=== PATIENT | male | born 1940 | race Caucasian/White ===

== ENCOUNTER → 2018-09-06 10:49 | Outpatient (CLI) | payer MEDICARE, OTHER, SELFPAY ==
--- NOTE | 2018-09-06 | DI.CT.S_ITS ---
PROCEDURE: CT HEAD/BRAIN WO/W CON INDICATIONS: Altered mental status, unspecified TECHNIQUE: 4.5 mm thick angled axial sections acquired from the foramen magnum to the vertex before and after the administration of intravenous contrast, with coronal and sagittal reformats. For radiation dose reduction, the following was used: automated exposure control, adjustment of mA and/or kV according to patient size. COMPARISON: None. FINDINGS: Image quality: Excellent. CSF Spaces: Basal cisterns are patent. No extra-axial fluid collections. Ventricles are normal in size and shape. Brain: No midline shift. No intracranial bleeds or masses. No abnormal intracranial enhancement. Woodruff-white interface appears normal. Skull and face: Calvarium and visualized facial bones appear intact, without suspicious lesions. Sinuses: Visualized sinuses and mastoids are clear. IMPRESSION: Normal examination. Source of altered mental status is not seen. Dictated by: Jeff Almonte M.D. on 09/06/2018 at 13:23 Approved by: Jeff Almonte M.D. on 09/06/2018 at 13:24
== END ==
PROVIDERS: Family Provider Family Medicine; PCP Family Medicine; Visit Provider Family Medicine
DX: R41.82 Altered mental status, unspecified (principal); R53.83 Other fatigue
CPT/HCPCS: 70470; Q9967

== ENCOUNTER 2020-12-28 11:44 | Inpatient (IN) | payer MEDICARE, OTHER, SELFPAY ==
[2020-12-28] VITALS (8 sets, daily range): BP systolic 125–166; BP diastolic 88–115; PULSE 77–112; RESP 16–20; TEMP 36.1–37.6; O2SAT 96–97; BMI 37.9
--- NOTE | 2020-12-28 12:11 | DI.RAD.S_ITS ---
PROCEDURE: XR CHEST 1V INDICATIONS: suspected sepsis TECHNIQUE: One view of the chest was acquired. COMPARISON: [facility], , CHEST 1 VIEW, 11/15/2014, 11:34. FINDINGS: Surgical changes and devices: None. Lungs and pleura: Lungs are clear. No pleural effusions or pneumothorax. Mediastinum: Mediastinal contours appear normal. Heart size is normal. Bones and chest wall: No suspicious bony lesions. Overlying soft tissues appear unremarkable. IMPRESSION: Normal for age, source of current sepsis syndrome symptoms is not seen. Dictated by: Jeff Almonte M.D. on 12/28/2020 at 14:23 Approved by: Jeff Almonte M.D. on 12/28/2020 at 14:24
[2020-12-28 12:21] LABS: Add Manual Diff / Slide Review NO; Basophils Absolute Auto 100 /uL (0-100); Basophils Percent Auto 0.7 % (0-2); Eosinophils Absolute Auto 200 /uL (0-450); Eosinophils Percent Auto 1.8 % (2-4); Hematocrit 42.8 % (41-53); Hemoglobin 14.4 g/dL (13.5-17.5); Lymphocytes Absolute Auto 1400 /uL (1100-4500); Lymphocytes Percent Auto 13.4 % (25-40); Mean Corpuscular HGB Conc 33.7 % (30-36); Mean Corpuscular Hemoglobin 30.3 PG (26-34); Mean Corpuscular Volume 89.9 fL (80-100); Monocytes Absolute Auto 800 /uL (0-900); Monocytes Percent Auto 7.5 % (3-14); Neutrophils Absolute Auto 8100 /uL (1500-7000); Neutrophils Percent Auto 76.6 % (50-75); Platelet Count 243 X10^3/uL (150-400); Red Blood Cell Count 4.76 X10^6/uL (4.5-5.9); Red Cell Distribution Width 13.5 % (11.6-14.8); White Blood Cell Count 10.5 X10^3/uL (4.5-11.0)
[2020-12-28 12:25] LABS: INR 2.2 (0.9-1.3); Prothrombin Time 25.2 SECONDS (10.1-12.7)
[2020-12-28 12:28] LABS: PTT Partial Thromboplastin Tim 46 SECONDS (26.4-36.2)
[2020-12-28 12:34] LABS: Lactate (Lactic Acid) 1.5 mmol/L (0.7-2.1)
[2020-12-28 12:35] LABS: Alanine Aminotransferase 22 IU/L (<50); Albumin 4.1 g/dL (3.5-5.0); Albumin Globulin Ratio 1.1 (1.0-2.8); Alkaline Phosphatase 150 U/L (38-126); Aspartate Aminotransferase 25 IU/L (17-59); BUN Creatinine Ratio 27.6 (6-22); Blood Urea Nitrogen 21 mg/dL (9-20); Calcium 9.3 mg/dL (8.4-10.2); Carbon Dioxide 29 mmol/L (22-32); Chloride 99 mmol/L (98-107); Estimated Glomerular Filt Rate > 60.0 mL/min (>60); Globulin 3.8 g/dL (1.7-4.1); Glucose 146 mg/dL (80-110); HEMOLYSIS < 15 (0-50); Lipase 44 U/L (23-300); Potassium 3.9 mmol/L (3.4-5.1); Sodium 138 mmol/L (137-145); Total Protein 7.9 g/dL (6.3-8.2)
[2020-12-28 12:52] LABS: Procalcitonin 0.06 ng/mL (<0.5)
--- NOTE | 2020-12-28 13:34 | ED.SKABFB ---
HPI - Skin/Abscess/Foreign Bdy General Chief complaint: Skin/Abscess/Foreign Body Stated complaint: LEFT KNEE PAIN AFTER FALL 2WKS AGO Time Seen by Provider: 12/28/20 13:02 Source: patient and family Limitations: no limitations History of Present Illness HPI narrative: 80-year-old gentleman with a history of atrial fibrillation currently on rivaroxaban, hypertension, hyperlipidemia who fell and landed on his left knee about 2 weeks ago. There is a significant abrasion and some minor swelling he was initially treated with a Z-Daniel. The knee itself has continued to be red sore and irritated and now he has cellulitis extending from the knee down the leg. He comes in for further evaluation. He denies fevers, nausea, vomiting, chest pain, palpitations, abdominal pain. He does note that it is more tender to walk and he is having difficulty with the left knee itself. He notes increasing swelling in the left lower extremity. Related Data Home Medications Medication Instructions Recorded Confirmed alpha lipoic acid 300 mg capsule 300 mg PO DAILY 03/26/19 12/28/20 atorvastatin 20 mg tablet 20 mg PO DAILY 03/26/19 12/28/20 cholecalciferol (vitamin D3) 50 2,000 unit PO DAILY 03/26/19 12/28/20 mcg (2,000 unit) capsule duloxetine 30 mg capsule,delayed 20 mg PO DAILY cap 03/26/19 12/28/20 release losartan 50 mg tablet 50 mg PO DAILY 03/26/19 12/28/20 metoprolol tartrate 50 mg tablet See Rx Instructions .ROUTE .COMPLEX 03/26/19 12/28/20 pregabalin 150 mg capsule 100 mg PO BID 03/26/19 12/28/20 rivaroxaban 20 mg tablet 20 mg PO DAILY 03/26/19 12/28/20 vitamin B complex PO 03/26/19 03/26/19 Allergies Allergy/AdvReac Type Severity Reaction Status Date / Time penicillin G [PENICILLIN G] Allergy Severe SYNCOPAL Unverified 03/26/19 13:10 EPISODE A CHILD clindamycin [CLINDAMYCIN] Allergy Intermediate RASH Unverified 03/26/19 13:10 Review of Systems Review of Systems Narrative: Remainder of complete review of systems is otherwise unremarkable except for that included in the HPI. Patient History Medical History Atrial fibrillation Hyperlipidemia Hypertension Social History household members: spouse Smoking Status: Former smoker alcohol intake: never Smoking Status: Former smoker Substance Use Type: does not use Exam Narrative Exam Narrative: General: Healthy appearing, in no acute distress. Able to give a complete and coherent history. Well-nourished well-developed HEENT: Moist mucous membranes, normal sclera with reactive pupils, Neck: No JVD, supple Respiratory: Lungs are clear to auscultation, no wheezing no rales no rhonchi. Full and symmetrical air movement Cardiac: Irregular rate and rhythm no murmurs no bruits Abdomen: Soft, nontender, good bowel tones, no flank pain Skin: Warm and dry, increasing erythema spreading from the left knee down the shearer and beginning to go up the thigh Neurologic: Grossly neurologically intact with no obvious asymmetries or abnormalities Extremities: Abrasion to the left knee with suprapatellar collection of fluid draining bloody purulence material. Full knee exam is limited due to effusion and pain. The knee can flex to 90 degree with little pain. Left calf more swollen than the right consistent with infection from the knee Psych: Cooperative, appropriate insight and affect Initial Vital Signs Initial Vital Signs: Vital Signs Temperature 99.6 F 12/28/20 11:51 Pulse Rate 77 12/28/20 11:51 Respiratory Rate 18 12/28/20 11:51 Blood Pressure 125/90 12/28/20 11:51 Pulse Oximetry 97 12/28/20 11:51 Course Orders Ordered: ED Orders 12/28/20 12:05 Complete Blood Count AUTO DIFF Stat Comprehensive Metabolic Panel Stat Lactate (Lactic Acid) Stat Lipase Stat Partial Thromboplastin Time Stat Procalcitonin Stat Prothrombin Time INR Stat 12/28/20 12:11 XR chest 1V Stat EKG-12 Lead Stat 12/28/20 13:18 Blood Culture Stat 12/28/20 13:41 XR knee LT 3V Stat 12/28/20 14:00 COVID19 - ADMIT (BUNCHER HAND swab/PCR) Stat Wound Culture and Gram Stain Stat 12/28/20 15:01 Cell Count w Diff Body Fluid Stat 12/28/20 15:08 Body Fluid Culture Stat Acetaminophen (Acetaminophen 325 Mg Tablet) 650 mg PO Q6HR PRN PRN Reason: Fever/Mild Pain (1-3) Atorvastatin Calcium (Atorvastatin 20 Mg Tablet) 20 mg PO DAILY NANCY Duloxetine HCl (Duloxetine 20 Mg Capsule) 20 mg PO DAILY NANCY Vancomycin HCl (Vancomycin) 1,250 mg in 250 mls @ 250 mls/hr IV Q12H NANCY Last Admin: 12/28/20 17:52 Dose: 250 mls/hr Documented by: [email or web address] Sodium Chloride (Normal Saline 0.9%) 250 mls @ 21 mls/hr IV Q24H PRN PRN Reason: Flush Last Admin: 12/28/20 17:52 Dose: 21 mls/hr Documented by: [email or web address] Losartan Potassium (Losartan 50 Mg Tablet) 50 mg PO DAILY NANCY Metoprolol Tartrate (Metoprolol Ir 25 Mg Tablet) 25 mg PO DAILY NANCY Metoprolol Tartrate (Metoprolol Ir 50 Mg Tablet) 50 mg PO BEDTIME NANCY Naloxone HCl (Naloxone 0.4 Mg/Ml Vial) 0.2 mg IV Q2MIN PRN PRN Reason: Opiate Reversal Pregabalin (Pregabalin 50 Mg Capsule) 100 mg PO BID NANCY Rivaroxaban (Rivaroxaban 10 Mg Tablet) 20 mg PO DAILY [facility] Vancomycin HCl (Vancomycin Trough) 1 [place] [facility] [place] Stop: 12/30/20 05:01 Discontinued Medications Sodium Chloride (Normal Saline 0.9%) 1,000 mls @ 1,000 mls/hr IV BOLUS ONE Stop: 12/28/20 13:10 Last Infusion: 12/28/20 15:22 Dose: 0 mls/hr Documented by: Admin: 12/28/20 14:09 Dose: 1,000 mls/hr Documented by: ALBERTO Ceftriaxone Sodium/Dextrose (Rocephin) 2 gm in 50 mls @ 100 mls/hr IV NOW ONE Stop: 12/28/20 15:24 Last Infusion: 12/28/20 15:55 Dose: 0 mls/hr Documented by: Admin: 12/28/20 15:27 Dose: 100 mls/hr Documented by: ALBERTO Metoprolol Tartrate (Metoprolol Ir 25 Mg Tablet) 25 mg PO BID NANCY Metoprolol Tartrate (Metoprolol Ir 25 Mg Tablet) 25 mg PO NOW ONE Stop: 12/28/20 17:16 Last Admin: 12/28/20 17:24 Dose: 25 mg Documented by: ESTELA Metoprolol Tartrate (Metoprolol Ir 25 Mg Tablet) 25 mg PO NOW ONE Stop: 12/28/20 17:30 Last Admin: 12/28/20 17:51 Dose: 25 mg Documented by: TBRAMB Vital Signs Vital signs: Vital Signs - 8 hr 12/28/20 11:51 12/28/20 15:29 Temperature 99.6 F Pulse Rate 77 109 H Respiratory Rate 18 Blood Pressure 125/90 166/115 H Pulse Oximetry 97 96 MDM - Skin/Abscess/Foreign Bdy Medical Records Attestation: I reviewed the patient's medical records. Lab Data Attestation: I reviewed the patient's lab results. Result diagrams: 12/28/20 12:05 12/28/20 12:05 Labs: Lab Results 12/28/20 12/28/20 12/28/20 Range/Units 12:05 12:05 12:05 WBC 10.5 (4.5-11.0) X10^3/uL RBC 4.76 (4.5-5.9) X10^6/uL Hgb 14.4 (13.5-17.5) g/dL Hct 42.8 (41-53) % MCV 89.9 (80-100) fL MCH 30.3 (26-34) PG MCHC 33.7 (30-36) % RDW 13.5 (11.6-14.8) % Plt Count 243 (150-400) X10^3/uL Neut % (Auto) 76.6 H (50-75) % Lymph % (Auto) 13.4 L (25-40) % [place] % (Auto) 7.5 (3-14) % Eos % (Auto) 1.8 L (2-4) % Baso % (Auto) 0.7 (0-2) % Neut # (Auto) 8100 H (5888-1834) /uL Lymph # (Auto) 1400 (5448-2804) /uL [place] # (Auto) 800 (0-900) /uL Eos # (Auto) 200 (0-450) /uL Baso # (Auto) 100 (0-100) /uL PT 25.2 H (10.1-12.7) SECONDS INR 2.2 H (0.9-1.3) APTT 46 H (26.4-36.2) SECONDS Sodium 138 (137-145) mmol/L Potassium 3.9 (3.4-5.1) mmol/L Chloride 99 (98-107) mmol/L Carbon Dioxide 29 (22-32) mmol/L BUN 21 H (9-20) mg/dL Creatinine 0.76 (0.66-1.25) mg/dL Estimated GFR > 60.0 (>60) mL/min BUN/Creatinine Ratio 27.6 H (6-22) Glucose 146 H (80-110) mg/dL Lactate (0.7-2.1) mmol/L Calcium 9.3 (8.4-10.2) mg/dL Total Bilirubin 1.0 (0.2-1.3) mg/dL AST 25 (17-59) IU/L ALT 22 (<50) IU/L Alkaline Phosphatase 150 H (38-126) U/L Total Protein 7.9 (6.3-8.2) g/dL Albumin 4.1 (3.5-5.0) g/dL Globulin 3.8 (1.7-4.1) g/dL Albumin/Globulin Ratio 1.1 (1.0-2.8) Lipase 44 (23-300) U/L Procalcitonin 0.06 (<0.5) ng/mL Fluid Color Fluid Appearance Fluid RBC Fld Tot Nucleated Cell Fluid Polynuclear WBCs Fluid Mononuclear WBCs Fluid Eosinophils Fluid Other Cells Body Fluid Clot SARS-CoV-2 (PCR) (Negative) 12/28/20 12/28/20 12/28/20 Range/Units 12:05 14:00 15:01 WBC (4.5-11.0) X10^3/uL RBC (4.5-5.9) X10^6/uL Hgb (13.5-17.5) g/dL Hct (41-53) % MCV (80-100) fL MCH (26-34) PG MCHC (30-36) % RDW (11.6-14.8) % Plt Count (150-400) X10^3/uL Neut % (Auto) (50-75) % Lymph % (Auto) (25-40) % [place] % (Auto) (3-14) % Eos % (Auto) (2-4) % Baso % (Auto) (0-2) % Neut # (Auto) (0284-4915) /uL Lymph # (Auto) (7827-0271) /uL [place] # (Auto) (0-900) /uL Eos # (Auto) (0-450) /uL Baso # (Auto) (0-100) /uL PT (10.1-12.7) SECONDS INR (0.9-1.3) APTT (26.4-36.2) SECONDS Sodium (137-145) mmol/L Potassium (3.4-5.1) mmol/L Chloride (98-107) mmol/L Carbon Dioxide (22-32) mmol/L BUN (9-20) mg/dL Creatinine (0.66-1.25) mg/dL Estimated GFR (>60) mL/min BUN/Creatinine Ratio (6-22) Glucose (80-110) mg/dL Lactate 1.5 (0.7-2.1) mmol/L Calcium (8.4-10.2) mg/dL Total Bilirubin (0.2-1.3) mg/dL AST (17-59) IU/L ALT (<50) IU/L Alkaline Phosphatase (38-126) U/L Total Protein (6.3-8.2) g/dL Albumin (3.5-5.0) g/dL Globulin (1.7-4.1) g/dL Albumin/Globulin Ratio (1.0-2.8) Lipase (23-300) U/L Procalcitonin (<0.5) ng/mL Fluid Color Red Fluid Appearance Cloudy Fluid RBC TNP Fld Tot Nucleated Cell TNP Fluid Polynuclear WBCs TNP Fluid Mononuclear WBCs TNP Fluid Eosinophils TNP Fluid Other Cells TNP Body Fluid Clot Specimen clotted SARS-CoV-2 (PCR) Negative (Negative) MDM Narrative Medical decision making narrative: 80-year-old gentleman with recent fall to the left knee with irritation to the left patella with superficial infection then developing into prepatellar infection. He has fairly free movement of the knee and lab work is relatively unremarkable suggesting no evidence of a septic joint. He is beginning to have increasing pain and expanding cellulitis from the area of concern at the patella distal. The patellar bursa bursa is draining slightly and using sterile touch technique and an 18 gauge needle 2 cc of bloody purulence fluid is withdrawn from the patella bursa and sent to the lab for culture. Because he has already finished a course of antibiotics and is having increasing pain and redness recommendation at this time is for hospital admission. Have contacted the hospitalist service who will be the admitting service and Orthopedics, Dr. Rice will consult to see if additional I and D of the bursa or knee joint itself needs to be more further evaluated. Patient is safe for transfer to floor Discharge Plan Departure Patient Disposition: Admitted as Observation Admit Date/Time: 12/28/20 15:58 Admit Provider: Jorje Art
--- NOTE | 2020-12-28 13:41 | DI.RAD.S_ITS ---
PROCEDURE: XR KNEE LT 3V INDICATIONS: ? septic joint, trauma, hemarthrosis TECHNIQUE: 3 views of the knee were acquired. COMPARISON: None. FINDINGS: Bones: No fractures or dislocations. No suspicious bony lesions. There is severe knee joint osteoarthritis at the medial compartment where [id number] articulation is present. Moderately severe such degeneration is seen at the lateral compartment and the lateral facet of the patellofemoral joint. Soft tissues: No joint effusion. No suspicious soft tissue calcifications. IMPRESSION: Overall the knee joint osteoarthritis is moderately severe to severe on the left, with most pronounced involvement at the medial compartment where [id number] articulation is present. Dictated by: Jeff Almonte M.D. on 12/28/2020 at 14:25 Approved by: Jeff Almonte M.D. on 12/28/2020 at 14:26
[2020-12-28] MEDS: SODIUM CHLORIDE 0.9% 1,000 ML 1000 ML IV (14:09)
[2020-12-28 15:04] LABS: Body Fluid Appearance CLOUDY; Body Fluid Clotted? SPECIMEN CLOTTED; Body Fluid Color RED
[2020-12-28 15:12] LABS: COVID19 - ADMIT (NP swab/PCR) Negative (Negative)
[2020-12-28] MEDS: CEFTRIAXONE 2 GM/50 ML FROZ.PIGGY IV (15:27)
[2020-12-28] MEDS: METOPROLOL IR 25 MG TABLET PO ×4 (17:24→23:19)
--- NOTE | 2020-12-28 17:29 | PC.ADMIT ---
[id number] [facility] Admission Note: The patient,Bennett Covington,80 y/o, was given written information regarding hospital policies, unit procedures and contact persons. Patient's smoking status: Former smoker. Vital Signs - 8 hr 12/28/20 11:51 12/28/20 15:29 12/28/20 16:40 Temperature 99.6 F 97.5 F L Pulse Rate 77 109 H 112 H Respiratory Rate 18 20 Blood Pressure 125/90 166/115 H 161/114 H Pulse Oximetry 97 96 96 12/28/20 17:05 Temperature Pulse Rate 110 H Respiratory Rate Blood Pressure 156/92 H Pulse Oximetry Patient up from ED via wheelchair. Patient was able to get out of the wheelchair with own cane and ambulate to bed. Patient denied pain. Patient is A&O, calm and cooperative.
[2020-12-28] MEDS: SODIUM CHLORIDE 0.9% 250 ML 21 ML IV (17:52)
[2020-12-28] MEDS: VANCOMYCIN 1,250 MG/250 ML PIGGYBACK 250 MG IV (17:52)
--- NOTE | 2020-12-28 17:56 | P.HP_ITS ---
History of Present Illness History of Present Illness Date Patient Seen: 12/28/20 Time Patient Seen: 15:57 Chief complaint: LEFT KNEE PAIN AFTER FALL 2WKS AGO Narrative: Mr. Covington is a 80M afib, htn, hl, peripheral neuropathy who is coming in with worsening swelling and pain in his left leg. He noted he had a 2 weeks ago and hit his knee. He had some swelling and an abrasion. He saw a physician and was given a z-pack for this which he finished about a week ago. He has noticed worsening swelling, erythema over his knee and worsening to extending down his leg. He did not have fevers, joint immobility, nausea, vomiting, shortness of breath. In the Er, workup was done. His vitals were unremarkable. Labs notable for a WBC of 10.5 with 76.6 PMNs, INR 2.2, creatinine 0.76. Procalcitonin of 0.06. He was given IV vancomycin and admitted for further treatment. Patient History Medical History Atrial fibrillation Hyperlipidemia Hypertension Family & Social History Social History: household members spouse Prior Living Arrangements House Safety & Behavioral: Feels Safe in Current Yes Environment Been Physically Hurt or No Threatened By a Person Suicidal Ideation Description None Suicide Plan Description No Plan Tobacco & Substance use: Smoking Status Former smoker alcohol intake never Substance Use Type does not use Meds Home Medications and Allergies Home Medications Medication Instructions Recorded Confirmed Type alpha lipoic acid 300 mg capsule 300 mg PO DAILY 03/26/19 12/28/20 History atorvastatin 20 mg tablet 20 mg PO DAILY 03/26/19 12/28/20 History cholecalciferol (vitamin D3) 50 2,000 unit PO DAILY 03/26/19 12/28/20 History mcg (2,000 unit) capsule duloxetine 30 mg capsule,delayed 20 mg PO DAILY cap 03/26/19 12/28/20 History release losartan 50 mg tablet 50 mg PO DAILY 03/26/19 12/28/20 History metoprolol tartrate 50 mg tablet See Rx Instructions .ROUTE .COMPLEX 03/26/19 12/28/20 History pregabalin 150 mg capsule 100 mg PO BID 03/26/19 12/28/20 History rivaroxaban 20 mg tablet 20 mg PO DAILY 03/26/19 12/28/20 History vitamin B complex PO 03/26/19 03/26/19 History Allergies Allergy/AdvReac Type Severity Reaction Status Date / Time penicillin G [PENICILLIN G] Allergy Severe SYNCOPAL Unverified 03/26/19 13:10 EPISODE A CHILD clindamycin [CLINDAMYCIN] Allergy Intermediate RASH Unverified 03/26/19 13:10 Review of Systems Review of Systems Narrative: 14 systems reviewed and negative aside from what is noted in HPI. Exam Vital Signs (past 8 hours): - 12/28/20 11:51 12/28/20 15:29 12/28/20 16:40 Temperature 99.6 F 97.5 F L Pulse Rate 77 109 H 112 H Respiratory Rate 18 20 Blood Pressure 125/90 166/115 H 161/114 H Pulse Oximetry 97 96 96 12/28/20 17:05 Temperature Pulse Rate 110 H Respiratory Rate Blood Pressure 156/92 H Pulse Oximetry Oxygen Delivery Method Room Air Oxygen Flow Rate 0 Narrative Exam Narrative: GEN: No acute distress HEENT: PERRL, moist mucous membranes NECK: trachea midline, no JVD CV: irregularly irregular, with no murmurs PULM: clear bilaterally ABD: soft, nontender, nondistended, no organomegaly, normal bowel sounds EXT: has abrasion to left knee, has mild fluid draining from suprapatellar region, has normal knee extension and flexion, has left sided erythema from knee to just above foot with significant edema NEURO: AAOx3, moving all extremities PSYCH: pleasant mood Objective Labs Result Diagrams: 12/28/20 12:05 12/28/20 12:05 Labs: Laboratory Results - last 24 hr 12/28/20 12/28/20 12/28/20 12:05 12:05 12:05 WBC 10.5 RBC 4.76 Hgb 14.4 Hct 42.8 MCV 89.9 MCH 30.3 MCHC 33.7 RDW 13.5 Plt Count 243 Neut % (Auto) 76.6 H Lymph % (Auto) 13.4 L [place] % (Auto) 7.5 Eos % (Auto) 1.8 L Baso % (Auto) 0.7 Neut # (Auto) 8100 H Lymph # (Auto) 1400 [place] # (Auto) 800 Eos # (Auto) 200 Baso # (Auto) 100 PT 25.2 H INR 2.2 H APTT 46 H Sodium 138 Potassium 3.9 Chloride 99 Carbon Dioxide 29 BUN 21 H Creatinine 0.76 Estimated GFR > 60.0 BUN/Creatinine Ratio 27.6 H Glucose 146 H Lactate Calcium 9.3 Total Bilirubin 1.0 AST 25 ALT 22 Alkaline Phosphatase 150 H Total Protein 7.9 Albumin 4.1 Globulin 3.8 Albumin/Globulin Ratio 1.1 Lipase 44 Procalcitonin 0.06 Fluid Color Fluid Appearance Fluid RBC Fld Tot Nucleated Cell Fluid Polynuclear WBCs Fluid Mononuclear WBCs Fluid Eosinophils Fluid Other Cells Body Fluid Clot SARS-CoV-2 (PCR) 12/28/20 12/28/20 12/28/20 12:05 14:00 15:01 WBC RBC Hgb Hct MCV MCH MCHC RDW Plt Count Neut % (Auto) Lymph % (Auto) [place] % (Auto) Eos % (Auto) Baso % (Auto) Neut # (Auto) Lymph # (Auto) [place] # (Auto) Eos # (Auto) Baso # (Auto) PT INR APTT Sodium Potassium Chloride Carbon Dioxide BUN Creatinine Estimated GFR BUN/Creatinine Ratio Glucose Lactate 1.5 Calcium Total Bilirubin AST ALT Alkaline Phosphatase Total Protein Albumin Globulin Albumin/Globulin Ratio Lipase Procalcitonin Fluid Color Red Fluid Appearance Cloudy Fluid RBC TNP Fld Tot Nucleated Cell TNP Fluid Polynuclear WBCs TNP Fluid Mononuclear WBCs TNP Fluid Eosinophils TNP Fluid Other Cells TNP Body Fluid Clot Specimen clotted SARS-CoV-2 (PCR) Negative Assessment & Plan Assessment & Plan narrative: 1. Acute left leg cellulitis -has worsening left leg erythema, swelling, and pain -ER drained suprapatellar collection -cultures from collection pending -no evidence of joint involvement with no joint pain, and good range of motion -continue IV vancomycin -keep leg elevated -ultrasound to rule out DVT 2. Atrial fibrillation -rate controlled currently -continue home dose of metoprolol 25mg am, 50mg pm -continue rivaroxaban 3. Peripheral neuropathy -chronic -continue duloxetine, pregabalin 4. HTN -continue losartan, metoprolol -blood pressure well controlled here 5. Hyperlipidema, chronic -continue atorvastatin IVF: None DVT ppx: full ac with rivaroxaban Diet: heart healthy Code status: Full, proxy is Esme Covington COVID-19 COVID-19 status: Negative Time Spent With Patient Time with patient: 15-24 minutes Quality VTE Deep Vein Thrombosis/Pulmonary Embolism Present on Admission: No MIPS - Admit I confirm the patient?s Advance Care Plan is present, Code status is documented, Surrogate decision maker is in patient?s record [If Yes, STOP here]: Yes
--- NOTE | 2020-12-28 18:10 | DI.US.S_ITS ---
PROCEDURE: US PERIPH VENOUS LOW EXTREM LT INDICATIONS: ?DVT TECHNIQUE: Real-time imaging, as well as color and pulse Doppler interrogation, were performed of the lower extremity deep veins from the inguinal ligament to the popliteal fossa. COMPARISON: None. FINDINGS: The common femoral, femoral and popliteal veins are normally compressible, and free of intraluminal thrombus. Color and pulse Doppler demonstrate normal phasic intraluminal flow. There is normal augmentation response to distal compression maneuver. Mild subcutaneous edema. IMPRESSION: No deep venous thrombosis. Mild subcutaneous edema is present. Recommend correlation cellulitis. Dictated by: Jo Lizama M.D. on 12/28/2020 at 19:06 Approved by: Jo Lizama M.D. on 12/28/2020 at 19:06
--- NOTE | 2020-12-28 18:18 | PM.CN ---
History of Present Illness Consult details Date Patient Seen: 12/28/20 Time Patient Seen: 18:04 Chief complaint: LEFT KNEE PAIN AFTER FALL 2WKS AGO Reason for consult: Left knee swelling Requesting provider: Jorje Art Narrative: 80-year-old gentleman admitted due to swelling to the left knee. Patient states he had a fall about a week ago and started to develop swelling in the prepatellar bursa. Over time this then started to develop into redness and some drainage as well as pain. Due to these symptoms, patient came into the emergency room today where he was admitted because possible infected prepatellar bursa. Patient states that they aspirated the bursa in the emergency room. Patient is complaining of pain to the knee but states that he has been able to ambulate despite the redness and drainage. Meds Home Medications and Allergies Home Medications Medication Instructions Recorded Confirmed Type alpha lipoic acid 300 mg capsule 300 mg PO DAILY 03/26/19 12/28/20 History atorvastatin 20 mg tablet 20 mg PO DAILY 03/26/19 12/28/20 History cholecalciferol (vitamin D3) 50 2,000 unit PO DAILY 03/26/19 12/28/20 History mcg (2,000 unit) capsule duloxetine 30 mg capsule,delayed 20 mg PO DAILY cap 03/26/19 12/28/20 History release losartan 50 mg tablet 50 mg PO DAILY 03/26/19 12/28/20 History metoprolol tartrate 50 mg tablet See Rx Instructions .ROUTE .COMPLEX 03/26/19 12/28/20 History pregabalin 150 mg capsule 100 mg PO BID 03/26/19 12/28/20 History rivaroxaban 20 mg tablet 20 mg PO DAILY 03/26/19 12/28/20 History vitamin B complex PO 03/26/19 03/26/19 History Allergies Allergy/AdvReac Type Severity Reaction Status Date / Time penicillin G [PENICILLIN G] Allergy Severe SYNCOPAL Unverified 03/26/19 13:10 EPISODE A CHILD clindamycin [CLINDAMYCIN] Allergy Intermediate RASH Unverified 03/26/19 13:10 Review of Systems Review of Systems ROS: Yes All systems reviewed with the patient and are negative except as otherwise documented Exam Vital Signs (past 8 hours): - 12/28/20 11:51 12/28/20 15:29 12/28/20 16:40 Temperature 99.6 F 97.5 F L Pulse Rate 77 109 H 112 H Respiratory Rate 18 20 Blood Pressure 125/90 166/115 H 161/114 H Pulse Oximetry 97 96 96 12/28/20 17:05 Temperature Pulse Rate 110 H Respiratory Rate Blood Pressure 156/92 H Pulse Oximetry Oxygen Delivery Method Room Air Oxygen Flow Rate 0 Narrative Exam Narrative: Patient with redness swelling into the anterior portion of the knee. No sign of any swelling in the knee joint itself. Patient is able to flex and extend the knee with little to no pain. No pain with axial loading of the knee joint. No sign of any obvious infection in the knee joint itself. Does have fullness and tenderness to palpation over the prepatellar bursa. Sensation of fluid. Signs of previous drainage in the dressing but no sign of any active drainage during exam. Objective Labs Result Diagrams: 12/28/20 12:05 12/28/20 12:05 Labs: Laboratory Results - last 24 hr 12/28/20 12/28/20 12/28/20 12:05 12:05 12:05 WBC 10.5 RBC 4.76 Hgb 14.4 Hct 42.8 MCV 89.9 MCH 30.3 MCHC 33.7 RDW 13.5 Plt Count 243 Neut % (Auto) 76.6 H Lymph % (Auto) 13.4 L [place] % (Auto) 7.5 Eos % (Auto) 1.8 L Baso % (Auto) 0.7 Neut # (Auto) 8100 H Lymph # (Auto) 1400 [place] # (Auto) 800 Eos # (Auto) 200 Baso # (Auto) 100 PT 25.2 H INR 2.2 H APTT 46 H Sodium 138 Potassium 3.9 Chloride 99 Carbon Dioxide 29 BUN 21 H Creatinine 0.76 Estimated GFR > 60.0 BUN/Creatinine Ratio 27.6 H Glucose 146 H Lactate Calcium 9.3 Total Bilirubin 1.0 AST 25 ALT 22 Alkaline Phosphatase 150 H Total Protein 7.9 Albumin 4.1 Globulin 3.8 Albumin/Globulin Ratio 1.1 Lipase 44 Procalcitonin 0.06 Fluid Color Fluid Appearance Fluid RBC Fld Tot Nucleated Cell Fluid Polynuclear WBCs Fluid Mononuclear WBCs Fluid Eosinophils Fluid Other Cells Body Fluid Clot SARS-CoV-2 (PCR) 12/28/20 12/28/20 12/28/20 12:05 14:00 15:01 WBC RBC Hgb Hct MCV MCH MCHC RDW Plt Count Neut % (Auto) Lymph % (Auto) [place] % (Auto) Eos % (Auto) Baso % (Auto) Neut # (Auto) Lymph # (Auto) [place] # (Auto) Eos # (Auto) Baso # (Auto) PT INR APTT Sodium Potassium Chloride Carbon Dioxide BUN Creatinine Estimated GFR BUN/Creatinine Ratio Glucose Lactate 1.5 Calcium Total Bilirubin AST ALT Alkaline Phosphatase Total Protein Albumin Globulin Albumin/Globulin Ratio Lipase Procalcitonin Fluid Color Red Fluid Appearance Cloudy Fluid RBC TNP Fld Tot Nucleated Cell TNP Fluid Polynuclear WBCs TNP Fluid Mononuclear WBCs TNP Fluid Eosinophils TNP Fluid Other Cells TNP Body Fluid Clot Specimen clotted SARS-CoV-2 (PCR) Negative Assessment & Plan Assessment & Plan narrative: Patient with signs of an infected left prepatellar bursa. Discussed with the patient that this will most likely require irrigation and debridement in the operating room. I would have planned on doing that today but patient has been already served dinner and he has just recently eaten. We will make him NPO after midnight. Reassess his knee in the morning and patient will most likely require an irrigation and debridement of that left knee sometime tomorrow if there has not been significant improvement from his IV antibiotics. Time Spent With Patient Time with patient: less than 15 minutes
[2020-12-28] MEDS: PREGABALIN 50 MG CAPSULE 100 MG PO (20:45)
[2020-12-28] MEDS: LOSARTAN 50 MG TABLET PO (21:54)
--- NOTE | 2020-12-28 22:02 | PC.NURSE ---
BP was still elevated tonight despite getting 50mg of Lopressor around 1730. will give lopressor 25mg and losartan 50mg. will reassess vitals after 30 min. pt did not take his morning meds
--- NOTE | 2020-12-28 23:31 | PC.NURSE ---
Addendum entered by Brenda Lockwood R.N. 12/29/20 05:37: Up to bathroom and noted to have some blood coming from penis. Denies dysuria. UA sent earlier positive for blood but no culture indicated. Original Note: patient is alert and oriented. Breath sounds diminished with short inspiratory phase and expiratory squeaks in bilateral lower lobes with exhalation. Reports chronic SOB just during ambulation but disappears once sitting/back in bed. HR irregular w/rate of 115-124 on cardiac monitor; COUNTER ROLLER informed and order received for additional Metoprolol which was given. Last telemetry reading was afib CVR. Denies nausea. BT present and abdomen is soft. Reports chronic urinary frequency but denies dysuria or urgency. Is able to move self in bed. Up to bathroom with walker and 1 assist. Erythema to left LE noted. Leg is also swollen and warm to touch. Small open area on patella draining serosanguinous fluid; 2 bandaids over patella are CDI. Pedal pulses present bilaterallly. Also has edema bilaterally chronically with current left > right. Neuropathy present in bilateral feet with some numbness extending up right leg. Denies pain. Fall risk score is high and bed alarm is activated. Plan is to be NPO after 0000 for possible I&D in the morning; patient verbalizes understanding.
[2020-12-29] VITALS (19 sets, daily range): BP systolic 118–189; BP diastolic 70–128; PULSE 78–140; RESP 12–20; TEMP 35.9–37.7; O2SAT 90–99; BMI 37.3
[2020-12-29 01:30] LABS: Bacteria Urine None Seen; WBC Urine None Seen (0-5/HPF)
[2020-12-29 01:32] LABS: Appearance Urine UA SL CLOUDY; Bilirubin Urine UA NEGATIVE (NEGATIVE); Color Urine UA YELLOW; Glucose Urine UA NEGATIVE (Negative); Ketones Urine UA NEGATIVE (NEGATIVE); Leukocyte Esterase Urine UA NEGATIVE (NEGATIVE); Nitrite Urine UA NEGATIVE (Negative); Occult Blood Urine UA 3+ (Negative); Protein Urine UA TRACE (Negative)
[2020-12-29 01:37] LABS: Culture Indicated Urine Cult Not Indicated; RBC Urine >100/HPF (0-5/HPF)
[2020-12-29] MEDS: SODIUM CHLORIDE 0.9% FLUSH 10 ML IV ×2 (05:28→09:08)
[2020-12-29] MEDS: VANCOMYCIN 1,250 MG/250 ML PIGGYBACK 250 MG IV ×2 (05:28→19:25)
[2020-12-29 06:56] LABS: Add Manual Diff / Slide Review NO; Basophils Absolute Auto 100 /uL (0-100); Basophils Percent Auto 0.8 % (0-2); Eosinophils Absolute Auto 200 /uL (0-450); Eosinophils Percent Auto 2.2 % (2-4); Hematocrit 37.7 % (41-53); Hemoglobin 12.9 g/dL (13.5-17.5); Lymphocytes Absolute Auto 1600 /uL (1100-4500); Lymphocytes Percent Auto 17.4 % (25-40); Mean Corpuscular HGB Conc 34.2 % (30-36); Mean Corpuscular Hemoglobin 30.7 PG (26-34); Mean Corpuscular Volume 89.7 fL (80-100); Monocytes Absolute Auto 1000 /uL (0-900); Monocytes Percent Auto 11.2 % (3-14); Neutrophils Absolute Auto 6400 /uL (1500-7000); Neutrophils Percent Auto 68.4 % (50-75); Platelet Count 224 X10^3/uL (150-400); Red Cell Distribution Width 13.1 % (11.6-14.8); White Blood Cell Count 9.3 X10^3/uL (4.5-11.0)
[2020-12-29 07:01] LABS: INR 1.5 (0.9-1.3); Prothrombin Time 16.9 SECONDS (10.1-12.7)
[2020-12-29 07:06] LABS: BUN Creatinine Ratio 21.3 (6-22); Blood Urea Nitrogen 16 mg/dL (9-20); Calcium 8.6 mg/dL (8.4-10.2); Carbon Dioxide 28 mmol/L (22-32); Chloride 101 mmol/L (98-107); Estimated Glomerular Filt Rate > 60.0 mL/min (>60); Glucose 131 mg/dL (80-110); HEMOLYSIS < 15 (0-50); Sodium 136 mmol/L (137-145)
--- NOTE | 2020-12-29 08:20 | PM.PN.1 ---
Subjective Subjective Date Patient Seen: 12/29/20 Time Patient Seen: 08:20 Interval history: Pain is mild. Denies fever or chills. No nausea or vomiting. Patient states he is hungry and frustrated would like to get this taken care of. Exam Vital Signs (past 8 hours): - 12/29/20 03:19 12/29/20 07:32 Temperature 99.8 F H 96.6 F L Pulse Rate 95 H 113 H Respiratory Rate 16 16 Blood Pressure 134/70 144/102 H Pulse Oximetry 96 96 Oxygen Delivery Method Room Air Oxygen Flow Rate 0 Narrative Exam Narrative: Erythematous and edematous anterior knee down to the foot. Small dime-size wound just inferior to the patella with a serous drainage. Does not appear to have an effusion. Motor functions intact distal left lower extremity. Sensation grossly intact to light touch distal left lower extremity. Objective Labs Result Diagrams: 12/29/20 06:47 12/29/20 06:47 Labs: Laboratory Results - last 24 hr 12/28/20 12/28/20 12/28/20 12:05 12:05 12:05 WBC 10.5 RBC 4.76 Hgb 14.4 Hct 42.8 MCV 89.9 MCH 30.3 MCHC 33.7 RDW 13.5 Plt Count 243 Neut % (Auto) 76.6 H Lymph % (Auto) 13.4 L [place] % (Auto) 7.5 Eos % (Auto) 1.8 L Baso % (Auto) 0.7 Neut # (Auto) 8100 H Lymph # (Auto) 1400 [place] # (Auto) 800 Eos # (Auto) 200 Baso # (Auto) 100 PT 25.2 H INR 2.2 H APTT 46 H Sodium 138 Potassium 3.9 Chloride 99 Carbon Dioxide 29 BUN 21 H Creatinine 0.76 Estimated GFR > 60.0 BUN/Creatinine Ratio 27.6 H Glucose 146 H Lactate Calcium 9.3 Total Bilirubin 1.0 AST 25 ALT 22 Alkaline Phosphatase 150 H Total Protein 7.9 Albumin 4.1 Globulin 3.8 Albumin/Globulin Ratio 1.1 Lipase 44 Procalcitonin 0.06 Urine Color Urine Appearance Urine pH Ur Specific [place] Urine Protein Urine Glucose (UA) Urine Ketones Urine Occult Blood Urine Nitrate Urine Bilirubin Urine Urobilinogen Ur Leukocyte Esterase Urine RBC Urine WBC Urine Bacteria Ur Culture Indicated? Fluid Color Fluid Appearance Fluid RBC Fld Tot Nucleated Cell Fluid Polynuclear WBCs Fluid Mononuclear WBCs Fluid Eosinophils Fluid Other Cells Body Fluid Clot SARS-CoV-2 (PCR) 12/28/20 12/28/20 12/28/20 12:05 14:00 15:01 WBC RBC Hgb Hct MCV MCH MCHC RDW Plt Count Neut % (Auto) Lymph % (Auto) [place] % (Auto) Eos % (Auto) Baso % (Auto) Neut # (Auto) Lymph # (Auto) [place] # (Auto) Eos # (Auto) Baso # (Auto) PT INR APTT Sodium Potassium Chloride Carbon Dioxide BUN Creatinine Estimated GFR BUN/Creatinine Ratio Glucose Lactate 1.5 Calcium Total Bilirubin AST ALT Alkaline Phosphatase Total Protein Albumin Globulin Albumin/Globulin Ratio Lipase Procalcitonin Urine Color Urine Appearance Urine pH Ur Specific [place] Urine Protein Urine Glucose (UA) Urine Ketones Urine Occult Blood Urine Nitrate Urine Bilirubin Urine Urobilinogen Ur Leukocyte Esterase Urine RBC Urine WBC Urine Bacteria Ur Culture Indicated? Fluid Color Red Fluid Appearance Cloudy Fluid RBC TNP Fld Tot Nucleated Cell TNP Fluid Polynuclear WBCs TNP Fluid Mononuclear WBCs TNP Fluid Eosinophils TNP Fluid Other Cells TNP Body Fluid Clot Specimen clotted SARS-CoV-2 (PCR) Negative 12/29/20 12/29/20 12/29/20 01:23 06:47 06:47 WBC 9.3 RBC 4.20 L Hgb 12.9 L Hct 37.7 L MCV 89.7 MCH 30.7 MCHC 34.2 RDW 13.1 Plt Count 224 Neut % (Auto) 68.4 Lymph % (Auto) 17.4 L [place] % (Auto) 11.2 Eos % (Auto) 2.2 Baso % (Auto) 0.8 Neut # (Auto) 6400 Lymph # (Auto) 1600 [place] # (Auto) 1000 H Eos # (Auto) 200 Baso # (Auto) 100 PT INR APTT Sodium 136 L Potassium 4.0 Chloride 101 Carbon Dioxide 28 BUN 16 Creatinine 0.75 Estimated GFR > 60.0 BUN/Creatinine Ratio 21.3 Glucose 131 H Lactate Calcium 8.6 Total Bilirubin AST ALT Alkaline Phosphatase Total Protein Albumin Globulin Albumin/Globulin Ratio Lipase Procalcitonin Urine Color Yellow Urine Appearance Sl cloudy Urine pH 6.0 Ur Specific [place] 1.020 Urine Protein Trace H Urine Glucose (UA) Negative Urine Ketones Negative Urine Occult Blood 3+ H Urine Nitrate Negative Urine Bilirubin Negative Urine Urobilinogen 1.0 Ur Leukocyte Esterase Negative Urine RBC >100/hpf H Urine WBC None seen Urine Bacteria None seen Ur Culture Indicated? Cult not indicated Fluid Color Fluid Appearance Fluid RBC Fld Tot Nucleated Cell Fluid Polynuclear WBCs Fluid Mononuclear WBCs Fluid Eosinophils Fluid Other Cells Body Fluid Clot SARS-CoV-2 (PCR) 12/29/20 06:47 WBC RBC Hgb Hct MCV MCH MCHC RDW Plt Count Neut % (Auto) Lymph % (Auto) [place] % (Auto) Eos % (Auto) Baso % (Auto) Neut # (Auto) Lymph # (Auto) [place] # (Auto) Eos # (Auto) Baso # (Auto) PT 16.9 H D INR 1.5 H APTT Sodium Potassium Chloride Carbon Dioxide BUN Creatinine Estimated GFR BUN/Creatinine Ratio Glucose Lactate Calcium Total Bilirubin AST ALT Alkaline Phosphatase Total Protein Albumin Globulin Albumin/Globulin Ratio Lipase Procalcitonin Urine Color Urine Appearance Urine pH Ur Specific [place] Urine Protein Urine Glucose (UA) Urine Ketones Urine Occult Blood Urine Nitrate Urine Bilirubin Urine Urobilinogen Ur Leukocyte Esterase Urine RBC Urine WBC Urine Bacteria Ur Culture Indicated? Fluid Color Fluid Appearance Fluid RBC Fld Tot Nucleated Cell Fluid Polynuclear WBCs Fluid Mononuclear WBCs Fluid Eosinophils Fluid Other Cells Body Fluid Clot SARS-CoV-2 (PCR) PFSH Medical History Atrial fibrillation Hyperlipidemia Hypertension Social History household members: spouse Smoking Status: Former smoker alcohol intake: never Assessment & Plan Assessment & Plan narrative: Infected prepatellar bursitis, irrigation debridement today. Continue NPO. Quality VTE Deep Vein Thrombosis/Pulmonary Embolism Present on Admission: No
--- NOTE | 2020-12-29 08:25 | PC.NURSE ---
Informed JACOB Pascal about pt's HTN of 144/102, rechecked 10 mins later, 140/89. Also informed him of noc shift RN's report of blood in urine and that a specimen was sent to lab. No changes in treatment plan. Asked about PO medications this am, JACOB Pascal confirmed to hold xarelto and give all other medications with sips of water.
[2020-12-29] MEDS: DULOXETINE 20 MG CAPSULE PO (09:03)
[2020-12-29] MEDS: ATORVASTATIN 20 MG TABLET PO (09:04)
[2020-12-29] MEDS: METOPROLOL IR 25 MG TABLET PO (09:05)
[2020-12-29] MEDS: PREGABALIN 50 MG CAPSULE 100 MG PO ×2 (09:07→21:23)
[2020-12-29] MEDS: LOSARTAN 50 MG TABLET PO (09:07)
--- NOTE | 2020-12-29 11:12 | PM.PN.1 ---
Subjective Subjective Date Patient Seen: 12/29/20 Time Patient Seen: 09:13 Interval history: Today he feels that his left leg pain is improving. His swelling is also decreasing. He is currently NPO for I+D for his infected bursitis in his knee. Overnight he was tachycardic in atrial fibrillation and needed increased metoprolol dosing. He has no chest pain, shortness of breath, palpitations. Exam Vital Signs (past 8 hours): - 12/29/20 03:19 12/29/20 07:32 12/29/20 09:07 Temperature 99.8 F H 96.6 F L Pulse Rate 95 H 113 H 108 H Respiratory Rate 16 16 Blood Pressure 134/70 144/102 H 140/89 Pulse Oximetry 96 96 Oxygen Delivery Method Room Air Oxygen Flow Rate 0 Narrative Exam Narrative: GEN: No acute distress HEENT: PERRL, moist mucous membranes NECK: trachea midline, no JVD CV: irregularly irregular, with no murmurs PULM: scattered wheezing ABD: soft, nontender, nondistended, no organomegaly, normal bowel sounds EXT: has abrasion to left knee, improving erythema and swelling of left leg, has normal knee extension and flexion NEURO: AAOx3, moving all extremities PSYCH: pleasant mood Objective Labs Result Diagrams: 12/29/20 06:47 12/29/20 06:47 Labs: Laboratory Results - last 24 hr 12/28/20 12/28/20 12/28/20 12:05 12:05 12:05 WBC 10.5 RBC 4.76 Hgb 14.4 Hct 42.8 MCV 89.9 MCH 30.3 MCHC 33.7 RDW 13.5 Plt Count 243 Neut % (Auto) 76.6 H Lymph % (Auto) 13.4 L [place] % (Auto) 7.5 Eos % (Auto) 1.8 L Baso % (Auto) 0.7 Neut # (Auto) 8100 H Lymph # (Auto) 1400 [place] # (Auto) 800 Eos # (Auto) 200 Baso # (Auto) 100 PT 25.2 H INR 2.2 H APTT 46 H Sodium 138 Potassium 3.9 Chloride 99 Carbon Dioxide 29 BUN 21 H Creatinine 0.76 Estimated GFR > 60.0 BUN/Creatinine Ratio 27.6 H Glucose 146 H Lactate Calcium 9.3 Total Bilirubin 1.0 AST 25 ALT 22 Alkaline Phosphatase 150 H Total Protein 7.9 Albumin 4.1 Globulin 3.8 Albumin/Globulin Ratio 1.1 Lipase 44 Procalcitonin 0.06 Urine Color Urine Appearance Urine pH Ur Specific [place] Urine Protein Urine Glucose (UA) Urine Ketones Urine Occult Blood Urine Nitrate Urine Bilirubin Urine Urobilinogen Ur Leukocyte Esterase Urine RBC Urine WBC Urine Bacteria Ur Culture Indicated? Fluid Color Fluid Appearance Fluid RBC Fld Tot Nucleated Cell Fluid Polynuclear WBCs Fluid Mononuclear WBCs Fluid Eosinophils Fluid Other Cells Body Fluid Clot SARS-CoV-2 (PCR) 12/28/20 12/28/20 12/28/20 12:05 14:00 15:01 WBC RBC Hgb Hct MCV MCH MCHC RDW Plt Count Neut % (Auto) Lymph % (Auto) [place] % (Auto) Eos % (Auto) Baso % (Auto) Neut # (Auto) Lymph # (Auto) [place] # (Auto) Eos # (Auto) Baso # (Auto) PT INR APTT Sodium Potassium Chloride Carbon Dioxide BUN Creatinine Estimated GFR BUN/Creatinine Ratio Glucose Lactate 1.5 Calcium Total Bilirubin AST ALT Alkaline Phosphatase Total Protein Albumin Globulin Albumin/Globulin Ratio Lipase Procalcitonin Urine Color Urine Appearance Urine pH Ur Specific [place] Urine Protein Urine Glucose (UA) Urine Ketones Urine Occult Blood Urine Nitrate Urine Bilirubin Urine Urobilinogen Ur Leukocyte Esterase Urine RBC Urine WBC Urine Bacteria Ur Culture Indicated? Fluid Color Red Fluid Appearance Cloudy Fluid RBC TNP Fld Tot Nucleated Cell TNP Fluid Polynuclear WBCs TNP Fluid Mononuclear WBCs TNP Fluid Eosinophils TNP Fluid Other Cells TNP Body Fluid Clot Specimen clotted SARS-CoV-2 (PCR) Negative 12/29/20 12/29/20 12/29/20 01:23 06:47 06:47 WBC 9.3 RBC 4.20 L Hgb 12.9 L Hct 37.7 L MCV 89.7 MCH 30.7 MCHC 34.2 RDW 13.1 Plt Count 224 Neut % (Auto) 68.4 Lymph % (Auto) 17.4 L [place] % (Auto) 11.2 Eos % (Auto) 2.2 Baso % (Auto) 0.8 Neut # (Auto) 6400 Lymph # (Auto) 1600 [place] # (Auto) 1000 H Eos # (Auto) 200 Baso # (Auto) 100 PT INR APTT Sodium 136 L Potassium 4.0 Chloride 101 Carbon Dioxide 28 BUN 16 Creatinine 0.75 Estimated GFR > 60.0 BUN/Creatinine Ratio 21.3 Glucose 131 H Lactate Calcium 8.6 Total Bilirubin AST ALT Alkaline Phosphatase Total Protein Albumin Globulin Albumin/Globulin Ratio Lipase Procalcitonin Urine Color Yellow Urine Appearance Sl cloudy Urine pH 6.0 Ur Specific [place] 1.020 Urine Protein Trace H Urine Glucose (UA) Negative Urine Ketones Negative Urine Occult Blood 3+ H Urine Nitrate Negative Urine Bilirubin Negative Urine Urobilinogen 1.0 Ur Leukocyte Esterase Negative Urine RBC >100/hpf H Urine WBC None seen Urine Bacteria None seen Ur Culture Indicated? Cult not indicated Fluid Color Fluid Appearance Fluid RBC Fld Tot Nucleated Cell Fluid Polynuclear WBCs Fluid Mononuclear WBCs Fluid Eosinophils Fluid Other Cells Body Fluid Clot SARS-CoV-2 (PCR) 12/29/20 06:47 WBC RBC Hgb Hct MCV MCH MCHC RDW Plt Count Neut % (Auto) Lymph % (Auto) [place] % (Auto) Eos % (Auto) Baso % (Auto) Neut # (Auto) Lymph # (Auto) [place] # (Auto) Eos # (Auto) Baso # (Auto) PT 16.9 H D INR 1.5 H APTT Sodium Potassium Chloride Carbon Dioxide BUN Creatinine Estimated GFR BUN/Creatinine Ratio Glucose Lactate Calcium Total Bilirubin AST ALT Alkaline Phosphatase Total Protein Albumin Globulin Albumin/Globulin Ratio Lipase Procalcitonin Urine Color Urine Appearance Urine pH Ur Specific [place] Urine Protein Urine Glucose (UA) Urine Ketones Urine Occult Blood Urine Nitrate Urine Bilirubin Urine Urobilinogen Ur Leukocyte Esterase Urine RBC Urine WBC Urine Bacteria Ur Culture Indicated? Fluid Color Fluid Appearance Fluid RBC Fld Tot Nucleated Cell Fluid Polynuclear WBCs Fluid Mononuclear WBCs Fluid Eosinophils Fluid Other Cells Body Fluid Clot SARS-CoV-2 (PCR) [facility] Medical History Atrial fibrillation Hyperlipidemia Hypertension Social History household members: spouse Smoking Status: Former smoker alcohol intake: never Assessment & Plan Assessment & Plan narrative: Mr. Covington is an 80M with PMH atrial fibrillation, HTN, Hl who comes in with acute left leg cellulitis and prepatellar bursa infection. 1. Acute left leg cellulitis and left prepatellar bursa infection -improving left leg erythema, swelling, and pain -ER drained suprapatellar collection -cultures from collection pending -no evidence of joint involvement with no joint pain, and good range of motion -continue IV vancomycin -keep leg elevated -ultrasound to rule out DVT was negative -orthopedics plan to take to OR to washout infected bursa today 12/29 2. Atrial fibrillation -rate initially controlled -had tachycardia night of 12/28, increased metoprolol to 50mg BID -hold rivaroxaban as patient going to OR 3. Peripheral neuropathy -chronic -continue duloxetine, pregabalin 4. HTN -continue losartan, metoprolol -blood pressure well controlled here 5. Hyperlipidema, chronic -continue atorvastatin IVF: None DVT ppx: full ac with rivaroxaban Diet: heart healthy Code status: Full, proxy is Esme De La Paz VTE Deep Vein Thrombosis/Pulmonary Embolism Present on Admission: No
--- NOTE | 2020-12-29 11:28 | CM.DANOTE ---
Patient is an 80 year old male who was admitted on 12/28/20 for Left Knee Pain. Pt has [facility] and [employer] for insurance and his PCP is Dr. Fausto Hoskins. EMR was reviewed. Per MD, pt with hx of neuropathy at baseline and was just given oral abx for outpt tx but pt returned to ED with cellulitis and failed outpt tx. Per Ortho MD consult, recommending I&D today and not stable for d/c yet today. Per safety inspector, I&D scheduled for around 1800 this evening and pt remains NPO. SW met bedside with pt and explained role and he confirms that he lives in [place] with his and is active and independent at baseline and drives and denies any other supportive services in place. Pt denies any hx of HH or SNF and SW discussed potential need for HH RN and maybe PT pending progress with his cellulitis and pt would be agreeable to HH if needed. Pt states they have no local family as their family mostly lives in [place] and [place] but they have local supportive friends and neighbors if needed. Preference is to d/c home via spouse POV when medically stable. Plan: SW to follow closely after I&D this evening towards possible d/c home on oral abx tomorrow if pt stable. SW to follow to r/o HH pending progress with reduction in swelling. KIAH Culver Discharge Planning/Care Management CM Discharge Assessment Start: 12/29/20 11:26 Freq: Status: Active Protocol: Document 12/29/20 11:27 BF (Rec: 12/29/20 11:28 BF [id number]) Discharge Planning Assessment Assigned Business Systems Developer KIAH Cline Advance Directives? No Advance Directives on File No History Provided By Patient,Medical Record Has Patient been admitted in last 30 No days? Prior Living Arrangements House Household Members spouse Type of transporation used prior to Drives own vehicle admit Independent with ADL's Yes Is patient alert and oriented? Yes Caregiver for Another No Comment rule out HH Barriers to Discharge No Discharge Plan Home Transportation Arrangement Spouse can provide transport at d/c Referrals Initiated None needed Additional Comment Follow to r/o HH Review Status In Process Please Provide Date Initial DC 12/29/20 Assessment Was Performed Next Review Type Continued Stay Review
[2020-12-29] MEDS: LACTATED RINGERS 1,000 ML 42 ML IV (17:34)
--- NOTE | 2020-12-29 17:43 | SUR.HOLD ---
Pt from acute care via WC. Pt up to amb to BR prior to transfer using cane for assist. Pt with expiratory wheezes throughout. Denies SOB but states he feels like he needs to cough up the phlem like in the morning. No inhaler use. Postive DP pulse to left foot, +2 pitting edema to left ankle and +[address] Torrez at bedside to see patient.
--- NOTE | 2020-12-29 19:03 | PM.PREOP ---
Pre-operative Note COVID-19 COVID-19 status: Negative Result date/Date tested (Pos, Neg/Pending): 12/28/20 Interval Note History & Physical reviewed/Exam performed by Physician: Yes Changes to H&P: No
--- NOTE | 2020-12-29 19:21 | SUR.OPER ---
Supine on padded OR bed, head on pillow, arms secured on padded arm boards at <90 degrees abduction, legs uncrossed, safety belt at thigh, tape over blanket over lower legs.
[2020-12-29] MEDS: BUPIVACAINE 0.25% W/ EPI 30 ML VIAL INJ ×2 (19:32→19:45)
--- NOTE | 2020-12-29 19:50 | P.OP_ITS ---
Operative Date/Time/Diagnoses Date of procedure: 12/29/20 Time of procedure: 19:00 Pre-op diagnosis: Septic left prepatellar bursitis Post-op diagnosis: same Procedure & Clinicians Procedure: Irrigation and debridement of the left prepatellar bursa Same procedure as scheduled: Yes Indications: Septic prepatellar bursitis Surgeon: Jimbo iRce Click Yes if Unassisted: Yes Anesthesia Type: General Operative Notes Findings: Septic prepatellar bursa with positive purulence. No sign of any intra-articular knee joint infection. Closure Type: primary Specimen(s): other (Fluid and soft tissue sent for cultures and sensitivities) Estimated Blood Loss (mL): 5 Blood products transfused: none Tourniquet time (min): 19 Procedure in detail: On date of service, patient was met in the holding area where his operative site was signed and witnessed by the OR staff. The surgery was once again discussed with the patient and any remaining questions or concerns he had were answered fully. Patient was taken back to the operating th eater and placed on the operating table in a supine position. Great care was taken to ensure that all bony prominences were appropriately padded. Well- padded tourniquet was placed up along the left leg. Time-out was performed verifying patient's name, procedure, and operative site. Antibiotics were held until we got all of our culture samples. Left leg was prepped and draped in the normal sterile fashion. Tourniquet was turned up to 250 mm of mercury. First, 18 gauge needle was placed into the knee joint and a aspiration was performed. We brought back clear knee fluid with no sign of any infectious process. Next, Ten blade was used to make an incision into the anterior aspect of the knee. Starting at the inferior portion of the patella extending distally over the tibial tuberosity. Fifteen blade was used as the deep knife was used to extend that sharp dissection. There was obvious purulence. This was swabbed and sent to microbiology. Continued sharp dissection was performed there was thick purulent material noted. Rongeur was used to debride some of the bursal material and this was also sent to microbiology. Using the 15 blade the infected bursa was sharply incised and removed. Complete excision of the prepatellar bursa was performed. The patellar tendon and was free of any damage. Pulse lavage was then used to copiously irrigate the wound. 3 L of saline was irrigated throughout the wound. Once this was done there was no sign of any residual infectious material. Packing material was placed and then the wound was closed loosely. The knee was then cleaned and dried and dressed and patient was taken to the PACU in stable condition. Complications: none Post-operative Condition: stable Disposition: PACU Plan for aftercare: Patient's packing can be removed Sunday morning. Once cultures and sensitivities are available patient can be discharged home on oral antibiotics.
[2020-12-29] MEDS: DOCUSATE 100 MG CAPSULE PO (21:22)
[2020-12-29] MEDS: METOPROLOL IR 50 MG TABLET PO (21:22)
[2020-12-29] MEDS: LACTATED RINGERS 1,000 ML 125 ML IV (21:25)
--- NOTE | 2020-12-29 22:30 | PC.NURSE ---
pt A&O, 94% 2LNC. L.knee dressing intact with acewrap. provider aware. pt also received total of 20mg labetalol in OR for HTN. pt's heart rate is still elevated >100. notified provider. will give cardizem per orders
[2020-12-29] MEDS: dilTIAZem 5 MG/ML SDV 20 MG IV (22:32)
[2020-12-30] VITALS (9 sets, daily range): BP systolic 127–185; BP diastolic 69–110; PULSE 76–126; RESP 18–20; TEMP 36.4–37.4; O2SAT 94–95
--- NOTE | 2020-12-30 03:31 | PC.NURSE ---
patient is alert and oriented but forgetful. Set off bed alarm and was almost out of bed when staff entered room. Patient states he called for help but no one came; call light was not on at the time. Breath sounds CTA; denies SOB except with activity and was noticeably SOB when up to bathroom. Is currently on oxygen at 2L/min with sat of 94% as was dropping down when asleep on evening shift. HR irregular; telemetry reading at 0000 was afib CVR w/BBB but HR is currently fluctuating upper 90's to 130's but not sustained. Denies nausea. BT hypoactive and patient denies passing flatus since return from surgery. Denies dysuria, frequency or urgency with urination; urine light bryan with flecks of blood noted. Able to turn himself. Gets up to bathroom with walker and SBA; needs frequent cueing for PWB on left leg. Left LE has packing with robyn wrap over and is CDI. Left LE is still erythemic, edematous and warm to touch. 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 Wearing calf SCD to right leg only. States pain is 5/10 to left knee but only intermittent and declines pain medication. Fall risk score is high and bed alarm is activated. On contact isolation as wound culture is growing staph aureus.
[2020-12-30] MEDS: dilTIAZem 5 MG/ML SDV 30 MG IV (04:36)
[2020-12-30] MEDS: VANCOMYCIN TROUGH 1 REQUEST MISC (05:03)
[2020-12-30 05:22] LABS: Hemoglobin 13.4 g/dL (13.5-17.5); Mean Corpuscular HGB Conc 34.3 % (30-36); Mean Corpuscular Hemoglobin 30.6 PG (26-34); Mean Corpuscular Volume 89.4 fL (80-100); Platelet Count 247 X10^3/uL (150-400); Red Blood Cell Count 4.36 X10^6/uL (4.5-5.9); White Blood Cell Count 10.7 X10^3/uL (4.5-11.0)
[2020-12-30 05:32] LABS: BUN Creatinine Ratio 22.2 (6-22); Blood Urea Nitrogen 16 mg/dL (9-20); Calcium 8.7 mg/dL (8.4-10.2); Carbon Dioxide 29 mmol/L (22-32); Chloride 98 mmol/L (98-107); Estimated Glomerular Filt Rate > 60.0 mL/min (>60); Glucose 182 mg/dL (80-110); HEMOLYSIS < 15 (0-50); Potassium 3.7 mmol/L (3.4-5.1); Sodium 135 mmol/L (137-145)
[2020-12-30] MEDS: VANCOMYCIN 1,250 MG/250 ML PIGGYBACK 250 MG IV (05:57)
[2020-12-30 07:44] LABS: INR 1.4 (0.9-1.3); Prothrombin Time 16.1 SECONDS (10.1-12.7)
[2020-12-30] MEDS: DOCUSATE 100 MG CAPSULE PO ×2 (09:38→20:44)
[2020-12-30] MEDS: DULOXETINE 20 MG CAPSULE PO (09:38)
[2020-12-30] MEDS: PREGABALIN 50 MG CAPSULE 100 MG PO ×2 (09:38→20:43)
[2020-12-30] MEDS: LOSARTAN 50 MG TABLET PO (09:38)
[2020-12-30] MEDS: CHOLECALCIFEROL (VITAMIN D3) 1,000 UNIT TABLET 2000 UNIT PO (09:38)
[2020-12-30] MEDS: METOPROLOL IR 25 MG TABLET PO (09:38)
--- NOTE | 2020-12-30 09:38 | PM.PNPO.1 ---
Subjective Subjective Date Patient Seen: 12/30/20 Time Patient Seen: 09:38 Interval history: Pain is mild. Denies fever or chills. No nausea vomiting. Exam Vital Signs (past 8 hours): - 12/30/20 04:00 12/30/20 04:36 12/30/20 04:46 Temperature 99.4 F Pulse Rate 124 H 118 H 126 H Respiratory Rate 18 Blood Pressure 185/110 H 143/103 H 145/96 H Pulse Oximetry 95 12/30/20 05:56 12/30/20 09:00 Temperature 97.6 F Pulse Rate 76 86 Respiratory Rate 20 Blood Pressure 130/70 127/83 Pulse Oximetry 94 Oxygen Delivery Method Nasal Cannula Oxygen Flow Rate 0 Narrative Exam Narrative: 80-year-old male resting comfortably in bed in no apparent distress. Dressing is clean, dry and intact. Edema left lower extremity. Motor functions intact distally left lower extremity. Sensation grossly intact to light touch. Objective Labs Result Diagrams: 12/30/20 05:03 12/30/20 05:03 Labs: Laboratory Results - last 24 hr 12/30/20 12/30/20 12/30/20 05:03 05:03 05:03 WBC 10.7 RBC 4.36 L Hgb 13.4 L Hct 39.0 L MCV 89.4 MCH 30.6 MCHC 34.3 RDW 13.0 Plt Count 247 PT INR Sodium 135 L Potassium 3.7 Chloride 98 Carbon Dioxide 29 BUN 16 Creatinine 0.72 Estimated GFR > 60.0 BUN/Creatinine Ratio 22.2 H Glucose 182 H Calcium 8.7 Vancomycin Trough 12.0 12/30/20 07:10 WBC RBC Hgb Hct MCV MCH MCHC RDW Plt Count PT 16.1 H INR 1.4 H Sodium Potassium Chloride Carbon Dioxide BUN Creatinine Estimated GFR BUN/Creatinine Ratio Glucose Calcium Vancomycin Trough SOURCE: Knee Lt ENTR: 12/29/[address]: Fausto Hoskins MD FAX TO: ORDERED: WOUND Cx and GS COMMENTS: Comment LEFT KNEE, PREPATELLAR BURSA Procedure Result Verified Site Gram Stain Final 12/29/20 No Organism Seen No organisms seen White blood cells Few mixed mono and poly WBCs Aerobic Culture for wounds Pending Anaerobic Culture Pending [facility] Medical History Atrial fibrillation Hyperlipidemia Hypertension Social History household members: spouse Smoking Status: Former smoker alcohol intake: never Assessment & Plan Post-op Postoperative Procedures: Procedures Operation Date: 12/29/20 18:00 Actual Procedures Side Surgeon p I&D knee Left Jimbo Rice MD Postop day 1 status post irrigation debridement of left septic prepatellar bursitis. Removed Sunday morning. Weight-bearing as tolerated. Once cultures and sensitivities are available patient can be discharged home on oral antibiotics. Wound culture from ER shows moderate growth Staph aureus. Patient currently receiving IV vancomycin. Quality VTE Deep Vein Thrombosis/Pulmonary Embolism Present on Admission: No
[2020-12-30] MEDS: ATORVASTATIN 20 MG TABLET PO (09:39)
[2020-12-30] MEDS: RIVAROXABAN 10 MG TABLET 20 MG PO (09:39)
--- NOTE | 2020-12-30 10:39 | CM.DPC ---
Addendum entered by Shauna Rodriguez LPN 12/30/20 13:12: Met now with pt and his Gina, who states she is a retired [employer]. OT and PT has completed their assessments but no notes were yet available so discussed case with both OT/Erma and PT Deborah before this meeting. Pt states he is feeling a bit down-hearted about needing to stay for another day in the hospital and especially after the therapy evaluations: I really don't think I did very well on some of the parts. Discussed options of HH services vs OUTPT PT and management of any wound care needs. Gina does assist her in some ways: she notes he has neuropathy in both feet and she messages his feet regularly, keeps a close eye on his skin and does then assist with donning socks and shoes. She says they have installed bars in the bathroom and have equipment in the shower to make it safer for him. She says she feels very comfortable at this point with any dressing changes that may be needed on the knee. She states that overall she thinks her will do better once he gets to his home environment and also that the addition of HH might make him anxious. Pt does not disagree. He is noted during the conversation to keep closing his eyes and rubbing the side of his head with he remote. Asked him about this. He said it was a technique to help distract him. Agreed to check in tomorrow and to note that his goal is to go home as soon as he is deemed stable for same and in the good care of his . Pt smiled and stated his agreement with same. Original Note: DCP: continued: case received, EMR reviewed and met with pt during Team Rounds. Introduced self and role. Dr. Art explained to all that he has discussed POC with the orthopedic team (JACOB Pascal is here today and Dr. Rice did the I&D late yesterday on L knee for infected L prepatella bursa). He told pt that the wound packing would be removed tomorrow and once the cultures/sensitivities were back he would transition to oral antibiotics and would then be ready for home. PT/OT need: discussed: order is now in place for same. P: will be checking back in with pt after therapy recommendations are in place. INPT admission status: noted as of 12/28 and with Medicare and [employer] as payer so pt is well positioned for HH are needed.
--- NOTE | 2020-12-30 11:06 | OT.IP.EVAL ---
Current Diagnoses Cellulitis of left lower limb (12/28/20) Surgery Performed Operation Date: 12/29/20 18:00 Actual Procedures p I&D knee(Left) - Jimbo Rice MD Past Medical History (Last Reviewed 12/30/20 @ 09:39 by Wing Pascal PA-C) Atrial fibrillation Hyperlipidemia Hypertension Occupational Therapy Inpatient Evaluation/Re-Eval M1 PT/OT-IP Prior Functional Status Start: 12/30/20 12:25 Freq: NEEDED Status: Active Protocol: Document 12/30/20 12:25 [facility] (Rec: 12/30/20 12:51 [facility] [id number]) Medical Review Prior Functional Status Medical History Reviewed Yes Communication Independent Mobility and Gait Pt states uses 4ww at times but mostly a cane. Activities of Daily Living and IADL's Completely independent for ADL 's Social History Household Members spouse Living Arrangements House Number of Floors (Floors) Two Floors Number of Stairs To Enter/Railing? 2 steps with right rail up Home Environment Standard Height Toilet,Walk in Shower Home Equipment Front Wheel Walker,Four Wheel Walker,Straight Cane,Shower Seat without Backrest,Grab Bars In Shower M2 OT-IP Current Condition Start: 12/30/20 12:25 Freq: Status: Active Protocol: Document 12/30/20 12:25 [facility] (Rec: 12/30/20 12:51 [facility] [id number]) Occupational Therapy Current Condition Current Condition Evaluation Date 12/30/20 Treatment Diagnosis Septic left prepatellar bursitis s/p I and D of Left perpatellar bursitis Diagnosis Onset Date 12/28/20 M3 OT- IP Subjective and Pain Start: 12/30/20 12:25 Freq: Status: Active Protocol: Document 12/30/20 12:25 [facility] (Rec: 12/30/20 12:51 [facility] [id number]) OT- Subjective Occupational Therapy Visit Type Type Initial Evaluation Visit Start Time 10:25 Visit Stop Time 10:06 Total Visit Minutes 41 Occupational Therapy Visit Comments Patient Comments Pt just finishing drying off from the shower with nursing aid when OT came in to see the pt. Patient/Caregiver Goals To go home. OT Pain Assessment Pain When Pain Assessed At Rest Pain Present Pain Present Denied Pain M4 OT- IP ADL's Start: 12/30/20 12:25 Freq: Status: Active Protocol: Document 12/30/20 12:25 [facility] (Rec: 12/30/20 12:51 [facility] [id number]) OT [id number]-[id number] Comments OT Self-Feeding Comments NOt at meal time. OT ADL-Grooming General Evaluation Grooming Ability Standby Assistance OT ADL-Oral Care Comments Oral Care Comments Not performed. OT ADL-Dressing General Eval Lower Body Dressing Ability Moderate Assistance Comments OT Dressing Comments Educated pt on socks aid to be able to assist to pj his socks as left foot in swollen and increased difficulty to bend his knee. Pt states his able to assist. OT ADL-Toileting Comments OT Toileting Comments Pt did not have to go. OT ADL-Bathing Bathing Type Bathing Type Shower General Evaluation Bathing Ability Minimal Assistance Comments OT Bathing Comments Assist for his back and best to shower while seated at this time. Pt states has a shower stool at home. M5 OT- IP IADL's Start: 12/30/20 12:25 Freq: Status: Active Protocol: Document 12/30/20 12:25 [facility] (Rec: 12/30/20 12:51 [facility] [id number]) OT-Instrumental Activities of Daily Living Home Safety Awareness Awareness of Need for Assistance at Home Good Awareness Home Safety Comments Pt states he will just ask his to assist as needed. Medication Management Medication Management Comments At this time best for his to assist. Money Management Money Management Caregiver Provides Assistance Meal Preparation Meal Preparation Caregiver Provides Assist Fry Cook Fry Cook Caregiver Provides Assist Driving Driving Concerns Identified Regarding Safety Driving Comments At this time pt is aware not to drive as does not feel well enough to drive at this time. M6 OT- IP Functional Cognition Start: 12/30/20 12:25 Freq: Status: Active Protocol: Document 12/30/20 12:25 [facility] (Rec: 12/30/20 12:51 [facility] [id number]) Cognitive Factors Limiting Selfcare Function Cognitive Ability Level of Alertness Alert Patient Orientation Name,Place,Situation Attention Span Ability Capable of Focused Attention, Capable of Sustained Attention Ability to Follow Commands Able to Follow Multi-Step Commands Memory Description Short Term Impaired Executive Function Ability Unable to Remember Details Cognitive Comments Cognitive Assessment Comments Pt's score on [place] Making Part B was 170 seconds and having trouble to add the numbers in his head when trying to figure out how many seconds are in 2 minutes and 50 seconds. Pt's score implies pt has severe impairment for visual attention, task switching, mental flexibility, executive functioning, and speed of processing. Pt's score may also be affected by his recent sx. Pt has good awareness not to drive at this time. OT- Vision and Hearing OT- Hearing Assessment OT- Hearing Assessment WFL OT- Vision Assessment Visual Acuity Glasses All The Time Vision Assessment Comments Pt wears bifocals but says he takes them off to drive and look far away. Pt having trouble with right lower quadrants. Pt's left eyelid droops which may also affect his vision. Suggested pt see his eye doctor. M7 OT- IP Mobility and Balance Start: 12/30/20 12:25 Freq: Status: Active Protocol: Document 12/30/20 12:25 [facility] (Rec: 12/30/20 12:51 [facility] [id number]) OT-Transfer Assessment Sit to and From Stand Sit to and from Stand Standby Assistance Transfers Transfer Ability Standby Assistance Technique Transfer Destination Chair,Toilet Transfer Technique Stand Step Pivot Devices Transfer Assistive Devices Gait Belt,Front Wheeled Walker Comments Mobility Comments SBA with FWW. Spoke to PT later and states that pt was appropriate with SPC. OT- Balance Assessment Sitting Balance and Reactions Static Sitting Balance Ability Normal Dynamic Sitting Balance Ability Normal Standing Balance and Reactions Static Standing Balance Ability Good Dynamic Standing Balance Ability Fair M8 OT- IP Objective Assessments Start: 12/30/20 12:25 Freq: Status: Active Protocol: Document 12/30/20 12:25 [facility] (Rec: 12/30/20 12:51 [facility] [id number]) OT Gross Range of Motion Upper Extremity Range of Motion Assessment Within Functional Limits OT Strength Upper Extremity Strength Assessment Within Functional Limits OT- Coordination Assessment Upper Extremity Finger to Nose Test Within Functional Limits OT-Muscle Tone Assessment Muscle Tone WNL Yes M9 OT- IP Assessment and Plan Start: 12/30/20 12:25 Freq: Status: Active Protocol: Document 12/30/20 12:25 [facility] (Rec: 12/30/20 12:51 [facility] [id number]) OT Summary Assessment and Plan Potential Rehabilitation Potential Excellent Analytic Complexity at Evaluation Low Summary OT Impairments Balance,Functional Cognition, Functional Mobility,Dressing, Toileting,Bathing,Toilet Transfers,Shower Transfers, Activity Tolerance Progress Towards Goals Progressing Toward Goals Assessment Summary Pt low complexity and main barriers are steps, decreased dynamic balance and decreased for time for [place] Making Part B which implies pt has severe impairment for visual attention, task switching, mental flexibility, executive functioning, and speed of processing. Pt's score may also be affected by his recent sx of I and D of left prepatellar bursitis. Pt has good awareness not to drive at this time. Pt also states has a supportive to assist with his needs at home. Goals Self-Feeding Goal Independent Grooming Goal Independent Dressing Goal Independent Toileting Goal Independent Bathing Goal Independent Toilet Transfer Goal Independent Shower Transfer Goal Independent Days to Meet Goals 5 Frequency of Treatment Frequency Of Treatment Once a Day Treatment Plan OT Treatment Plan ADL Training,Functional Cognition Training,Functional Mobility,Patient/Family Education,Discharge Planning Other Treatment Recommendations and Next I for ADL's with use of SPC Treatment Focus for mobility. Discharge Recommendations OT Discharge Recommendations Home with Assistance Transportation Needs at Discharge Private Vehicle
--- NOTE | 2020-12-30 11:20 | PT.IIE ---
Current Diagnoses Cellulitis of left lower limb (12/28/20) Surgery Performed Operation Date: 12/29/20 18:00 Actual Procedures p I&D knee(Left) - Jimbo Rice MD Medical History (Last Reviewed 12/30/20 @ 09:39 by Wing Pascal PA-C) Atrial fibrillation Hyperlipidemia Hypertension Physical Therapy Inpatient Evaluation/Re-Eval M1 PT/OT-IP Prior Functional Status Start: 12/30/20 12:25 Freq: NEEDED Status: Active Protocol: Document 12/30/20 12:25 [facility] (Rec: 12/30/20 12:51 [facility] [id number]) Medical Review Prior Functional Status Medical History Reviewed Yes Communication Independent Mobility and Gait Pt states uses 4ww at times but mostly a cane. Activities of Daily Living and IADL's COmpletely independent for ADL 's Social History Household Members spouse Living Arrangements House Number of Floors (Floors) Two Floors Number of Stairs To Enter/Railing? 2 steps wwith right rail up Home Environment Standard Height Toilet,Walk in Shower Home Equipment Front Wheel Walker,Four Wheel Walker,Straight Cane,Shower Seat without Backrest,Grab Bars In Shower M2 PT-IP Current Condition Start: 12/30/20 09:05 Freq: NEEDED Status: Active Protocol: Document 12/30/20 11:20 AW (Rec: 12/30/20 14:00 AW [id number]) Physical Therapy Current Condition Current Condition Evaluation Date 12/30/20 Treatment Diagnosis LLE cellulitis s/p I&D prepatellar bursa; difficulty in walking Onset Date 12/28/20 Weight Bearing Status Weight Bearing Status Weight Bear as Tolerated Allowed Weight Bearing Amount (enter % Initial WB order per ortho was or #) (%) PWB. Via telephone, PT discussed with Dr. Mandujano who stated pt should be WBAT. PT updated WB order. M3 PT-IP Subjective Start: 12/30/20 09:05 Freq: NEEDED Status: Active Protocol: Document 12/30/20 11:20 AW (Rec: 12/30/20 14:00 AW [id number]) Subjective Physical Therapy Visit Type Type Initial Evaluation Visit Start Time 11:01 Visit Stop Time 11:20 Total Visit Minutes 19 Number of ADMISSIONS MANAGER Visits 0 Physical Therapy Visit Comments Patient Comments Pt just finished with OT but is willing to work with PT Patient Goals Return home. Therapy Pain Assessment Pain When Pain Assessed During Mobility Pain Present Pain Present Denied Pain M4 PT-IP Mobility and Gait Start: 12/30/20 09:05 Freq: NEEDED Status: Active Protocol: Document 12/30/20 11:20 AW (Rec: 12/30/20 14:00 AW [id number]) PT-Bed Mobility Assessment Rolling Level of Assist Minimal Assistance,1 Person Assistance Supine to Sit Supine to Sit Minimal Assistance,1 Person Assistance PT-Transfer Assessment Sit to and From Stand Sit to and from Stand Contact Guard Assistance,1 Person Assistance,Use of Upper Extremities Equipment Transfer Assistive Device Gait Belt,Straight Cane Orthotic/Prosthetic Devices or Brace: No Transfers Transfer Destination Bed,Chair Transfer Technique Stand Step Pivot Transfer Ability Level of Assist Contact Guard Assistance,1 Person Assistance,Use of Upper Extremities Comments Mobility Comments Pt was sitting up in the chair as PT arrived. He stood CGA and ambulated in the halls a total of 100 feet using SPC CGA. On return to the room, he transferred to the bed and needed min assist for supine < > sit. He then transferred back to the chair CGA. Pt denied knee pain during mobility but reported headache on return to the room. PT informed RN. Gait Assessment Gait Gait Assistance Required: Contact Guard Assist Distance (Feet) 100 Able to Maintain Weight Bearing Status Yes During Gait Assistive Devices Assistive Device Gait Belt,Straight Cane Orthotic/Prosthetic Devices or Brace: No Gait Deviations General Gait Pattern Antalgic,Decreased Stride Length,Decreased Feet Clearance,Step-to Gait Factors Limiting Gait Function Factors Limiting Gait Function Decreased Activity Tolerance, Decreased Sensation,Decreased Strength,Limited Range of Motion,Poor Balance,Poor Safety Awareness Comments Gait Comments Gait with SPC was unsteady but no LOB. Stair Climbing Assessment Comments Stair Climbing Comments Not assessed. PT-Balance Assessment Sitting Balance and Reactions Static Sitting Balance Ability Good Dynamic Sitting Balance Ability Good Standing Balance and Reactions Static Standing Balance Ability Fair Dynamic Standing Balance Ability Fair Device Used SPC Balance Tests Single Limb Standing unable LLE; RLE 3 sec M5 PT-IP Objective Assessments Start: 12/30/20 09:05 Freq: NEEDED Status: Active Protocol: Document 12/30/20 11:20 AW (Rec: 12/30/20 14:00 AW [id number]) Orientation Orientation/Cognition Level of Alertness Confusional State Orientation Name,Month,Place,Situation Language Function Ability No Deficits Noted Safety Awareness Decreased Safety Awareness Gross Range of Motion Lower Extremity ROM Assessment Left Impaired Impairments lacks ~10 degrees extension secondary to pain Strength Lower Extremity Strength Assessment Left Impaired Hip 4-/5 Knee 3-/5 Sensation Assessment Sensation Gross Sensation Right LE Impaired,Left LE Impaired Light Touch Impaired Proprioception (Position) Impaired Comments Sensation Comments Peripheral neuropathy affects bilateral feet to ~3 above malleoli. Pt's performs regular skin checks. M6 PT-IP Treatment Start: 12/30/20 09:05 Freq: NEEDED Status: Active Protocol: Document 12/30/20 11:20 AW (Rec: 12/30/20 14:00 AW [id number]) Physical Therapy Treatment Education Education Provided Weight Bearing Status,Safety Other Treatments Other Treatment Performed Educated pt on role of PT, plan of care, WB status, and rationale for selection of an assistive device. M7 PT-IP Assessment and Plan Start: 12/30/20 09:05 Freq: NEEDED Status: Active Protocol: Document 12/30/20 11:20 AW (Rec: 12/30/20 14:00 AW [id number]) PT Summary Assessment and Plan Potential Rehabilitation Potential Good Status of Condition at Evaluation Stable Summary Impairments Pain,ROM,Strength,Balance, Sensation,Bed Mobility, Transfers,Gait Assessment Summary Bennett is an 80 yo man seen for PT evaltuaion on POD1 following I&D for left prepatellar bursa infection resulting in LLE cellulitis. He is modified independent using SPC or 4WW for short community distances at baseline. Pt's reports history of falls. Peripheral neuropathy and left knee ROM deficit significantly affect pt's gait. On evaluation, pt required CGA for ambulation 100 feet with SPC and min assist for bed mobility. Continued acute PT is indicated to progress safe mobility. PT anticipates pt will be safe to discharge home with his to assist. Pt would benefit from HH PT to progress left knee ROM and to reduce risk of falls at home. Goals Bed Mobility Goal Standby Assistance Transfer Goal Independent,Cane Gait Goal Standby Assistance,Cane Gait Distance 150 Other Goals - up/down 2 steps with R rail ascending and SPC SBA Frequency of Treatment Frequency Of Treatment Once a Day Treatment Plan Physical Therapy Treatment Plan Bed Mobility Training,Transfer Training,Gait Training, Therapeutic Exercise,Balance Retraining,Post Op Education, Discharge Planning,Hot or Cold Pack,Neuromuscular Re-ed Precautions Other Precautions WBAT LLE Recommendations To Nursing Amount of Assist Needed Standby Assistance,1 Person Assist Discharge Recommendations PT Discharge Recommendations Home with Assistance,Home Health Transportation Needs at Discharge Private Vehicle
[2020-12-30] MEDS: ACETAMINOPHEN 325 MG TABLET 975 MG PO (11:34)
--- NOTE | 2020-12-30 13:05 | OT.IPNOTE ---
Able to speak to pt's regrading OT needs and did state that pt has had falls at home and that he mostly uses SPC. Suggested would be best for pt to use his 4ww or fww for safety. Therefore pt would benefit from home health at home to help further assess pt's environment and safety. Case management was present during the conversation with the pt and .
[2020-12-30] MEDS: DICLOXACILLIN 250 MG CAPSULE 500 MG PO ×2 (16:13→20:45)
--- NOTE | 2020-12-30 16:35 | PM.PN.1 ---
Subjective Subjective Date Patient Seen: 12/30/20 Time Patient Seen: 09:36 Interval history: He went to the OR yesterday for washout of his infected bursitis. He feels improving symptoms in his leg with less pain. Exam Vital Signs (past 8 hours): - 12/30/20 09:00 12/30/20 11:45 12/30/20 16:08 Temperature 97.6 F 98.3 F 97.6 F Pulse Rate 86 91 H 92 H Respiratory Rate 20 20 18 Blood Pressure 127/83 138/87 129/77 Pulse Oximetry 94 94 94 Oxygen Delivery Method Nasal Cannula Oxygen Flow Rate 0 Narrative Exam Narrative: GEN: No acute distress HEENT: PERRL, moist mucous membranes NECK: trachea midline, no JVD CV: irregularly irregular, with no murmurs PULM: scattered wheezing ABD: soft, nontender, nondistended, no organomegaly, normal bowel sounds EXT: left knee is bandaged, improving erythema and swelling of left leg, has normal knee extension and flexion NEURO: AAOx3, moving all extremities PSYCH: pleasant mood Objective Labs Result Diagrams: 12/30/20 05:03 12/30/20 05:03 Labs: Laboratory Results - last 24 hr 12/30/20 12/30/20 12/30/20 05:03 05:03 05:03 WBC 10.7 RBC 4.36 L Hgb 13.4 L Hct 39.0 L MCV 89.4 MCH 30.6 MCHC 34.3 RDW 13.0 Plt Count 247 PT INR Sodium 135 L Potassium 3.7 Chloride 98 Carbon Dioxide 29 BUN 16 Creatinine 0.72 Estimated GFR > 60.0 BUN/Creatinine Ratio 22.2 H Glucose 182 H Calcium 8.7 Vancomycin Trough 12.0 12/30/20 07:10 WBC RBC Hgb Hct MCV MCH MCHC RDW Plt Count PT 16.1 H INR 1.4 H Sodium Potassium Chloride Carbon Dioxide BUN Creatinine Estimated GFR BUN/Creatinine Ratio Glucose Calcium [facility] Medical History Atrial fibrillation Hyperlipidemia Hypertension Social History household members: spouse Smoking Status: Former smoker alcohol intake: never Assessment & Plan Assessment & Plan narrative: Mr. Covington is an 80M with PMH atrial fibrillation, HTN, Hl who comes in with acute left leg cellulitis and prepatellar bursa infection. 1. Acute left leg cellulitis and left prepatellar septic bursitis -improving left leg erythema, swelling, and pain -ER drained suprapatellar collection -cultures from collection showed MSSA -no evidence of joint involvement with no joint pain, and good range of motion -stopped IV vancomycin -switching to oral dicloxacillin, likely needs 10 day course -keep leg elevated -ultrasound to rule out DVT was negative -orthopedics took to OR irrigation and debridement 2. Atrial fibrillation -rate initially controlled -had tachycardia night of 12/28, increased metoprolol to 50mg BID -hold rivaroxaban as patient going to OR 3. Peripheral neuropathy -chronic -continue duloxetine, pregabalin 4. HTN -continue losartan, metoprolol -blood pressure well controlled here 5. Hyperlipidema, chronic -continue atorvastatin IVF: None DVT ppx: full ac with rivaroxaban Diet: heart healthy Code status: Full, proxy is Esme De La Paz VTE Deep Vein Thrombosis/Pulmonary Embolism Present on Admission: No
[2020-12-30] MEDS: METOPROLOL IR 50 MG TABLET PO (20:44)
[2020-12-31] VITALS (7 sets, daily range): BP systolic 123–153; BP diastolic 70–103; PULSE 71–119; RESP 18–20; TEMP 37.2–37.3; O2SAT 93–94
[2020-12-31] MEDS: DICLOXACILLIN 250 MG CAPSULE 500 MG PO ×2 (03:32→09:14)
[2020-12-31] MEDS: ACETAMINOPHEN 325 MG TABLET 975 MG PO (03:32)
[2020-12-31] MEDS: METOPROLOL IR 25 MG TABLET PO (03:32)
--- NOTE | 2020-12-31 04:36 | PC.NURSE ---
Addendum entered by Carola Chowdary R.N. 12/31/20 05:20: Pt vitals stabilized, HR 60-80 AFIB, BP 120s/70s post diltiazem administration. Original Note: Pt in afib w/ HR between 80-140. Elevated BP prior to metoprolol administration 150s/100s, 45 min post administration 130s/90s. Provider aware, ordered IV diltiazem push 25 mg. Pt denies any symptoms- no headache, nausea, dizziness, palpations, chest pain, diaphoresis.
[2020-12-31] MEDS: dilTIAZem 5 MG/ML SDV 25 MG IV (04:47)
[2020-12-31 06:08] LABS: Hematocrit 38.9 % (41-53); Hemoglobin 13.2 g/dL (13.5-17.5); Mean Corpuscular Hemoglobin 30.4 PG (26-34); Mean Corpuscular Volume 89.4 fL (80-100); Platelet Count 248 X10^3/uL (150-400); Red Blood Cell Count 4.35 X10^6/uL (4.5-5.9); Red Cell Distribution Width 13.5 % (11.6-14.8); White Blood Cell Count 10.6 X10^3/uL (4.5-11.0)
[2020-12-31 06:10] LABS: INR 2.1 (0.9-1.3); Prothrombin Time 23.6 SECONDS (10.1-12.7)
[2020-12-31 06:14] LABS: BUN Creatinine Ratio 22.1 (6-22); Blood Urea Nitrogen 15 mg/dL (9-20); Calcium 8.6 mg/dL (8.4-10.2); Carbon Dioxide 28 mmol/L (22-32); Chloride 101 mmol/L (98-107); Estimated Glomerular Filt Rate > 60.0 mL/min (>60); Glucose 152 mg/dL (80-110); HEMOLYSIS < 15 (0-50); Potassium 3.8 mmol/L (3.4-5.1); Sodium 136 mmol/L (137-145)
--- NOTE | 2020-12-31 07:33 | P.PN_ITS ---
Subjective Subjective Date Patient Seen: 12/31/20 Time Patient Seen: 07:34 Interval history: Patient states he is doing well and is in minimal pain. At this time he denies fever, chills, nausea, chest pain, or shortness of breath. Patient states that he has good sensation throughout the bilateral lower extremities. Patient has been voiding without difficulty or discomfort. Exam Vital Signs (past 8 hours): - 12/31/20 00:00 12/31/20 03:41 12/31/20 04:00 Temperature 98.9 F 99.1 F Pulse Rate 100 H 105 H 119 H Respiratory Rate 20 18 Blood Pressure 134/84 153/103 H 139/98 H Pulse Oximetry 93 93 12/31/20 04:47 12/31/20 05:16 Temperature Pulse Rate 118 H 71 Respiratory Rate Blood Pressure 139/98 H 123/70 Pulse Oximetry Oxygen Delivery Method Room Air Oxygen Flow Rate 0 Narrative Exam Narrative: 80-year-old male postop day 2 irrigation and debridement of left prepatellar bursa. Patient is resting comfortably in bed, is in no acute distress, is alert and oriented x3. Skin is warm and dry, and the skin surrounding the incision site is free of warmth, erythema, induration, or discharge. Sensation intact throughout the bilateral lower extremities to light touch, palpable pulses appreciated. Hip flexion performed bilaterally, right gr eater than left. Ankle inversion, eversion, dorsiflexion, plantar flexion performed bilaterally without difficulty or discomfort. Negative Homans sign, or any other signs of DVT appreciated. Capillary refill less than 2 seconds. Const General: cooperative, healthy appearing and comfortable Resp Effort & Inspection: normal respiratory effort and able to speak in complete sentences Skin General: no rashes or lesions noted Objective Labs Result Diagrams: 12/31/20 05:51 12/31/20 05:51 Labs: Laboratory Results - last 24 hr 12/30/20 12/31/20 12/31/20 07:10 05:51 05:51 WBC 10.6 RBC 4.35 L Hgb 13.2 L Hct 38.9 L MCV 89.4 MCH 30.4 MCHC 34.0 RDW 13.5 Plt Count 248 PT 16.1 H 23.6 H D INR 1.4 H 2.1 H Sodium Potassium Chloride Carbon Dioxide BUN Creatinine Estimated GFR BUN/Creatinine Ratio Glucose Calcium 12/31/20 05:51 WBC RBC Hgb Hct MCV MCH MCHC RDW Plt Count PT INR Sodium 136 L Potassium 3.8 Chloride 101 Carbon Dioxide 28 BUN 15 Creatinine 0.68 Estimated GFR > 60.0 BUN/Creatinine Ratio 22.1 H Glucose 152 H Calcium 8.6 PFSH Medical History Atrial fibrillation Hyperlipidemia Hypertension Social History household members: spouse Smoking Status: Former smoker alcohol intake: never Assessment & Plan Post-op Postoperative Procedures: Procedures Operation Date: 12/29/20 18:00 Actual Procedures Side Surgeon p I&D knee Left Jimbo Rice MD Postoperative day: 2 Postoperative status: doing well Postoperative plan: ambulate Postoperative plan narrative: Patient is to continue working with physical therapy. Patient is to remain weight-bearing as tolerated. Upon discharge the patient should be administered p.o. antibiotics. Time Spent With Patient Time with patient: 15-24 minutes Quality VTE Deep Vein Thrombosis/Pulmonary Embolism Present on Admission: No
[2020-12-31] MEDS: CHOLECALCIFEROL (VITAMIN D3) 1,000 UNIT TABLET 2000 UNIT PO (09:10)
[2020-12-31] MEDS: ATORVASTATIN 20 MG TABLET PO (09:10)
[2020-12-31] MEDS: DOCUSATE 100 MG CAPSULE PO (09:10)
[2020-12-31] MEDS: LOSARTAN 50 MG TABLET PO (09:11)
[2020-12-31] MEDS: DULOXETINE 20 MG CAPSULE PO (09:11)
[2020-12-31] MEDS: RIVAROXABAN 10 MG TABLET 20 MG PO (09:12)
[2020-12-31] MEDS: PREGABALIN 50 MG CAPSULE 100 MG PO (09:12)
[2020-12-31] MEDS: METOPROLOL IR 50 MG TABLET PO (09:12)
[2020-12-31] MEDS: SODIUM CHLORIDE 0.9% FLUSH 10 ML IV (09:13)
--- NOTE | 2020-12-31 09:26 | PC.NURSE ---
Pt. IV line leaking, primary nurse notified.
--- NOTE | 2020-12-31 09:45 | PT.IPTN ---
Current Diagnoses Cellulitis of left lower limb (12/28/20) Surgery Performed Operation Date: 12/29/20 18:00 Actual Procedures p I&D knee(Left) - Jimbo Rice MD Physical Therapy Treatment Note M2 PT-IP Current Condition Start: 12/30/20 09:05 Freq: NEEDED Status: Discharge Protocol: Document 12/30/20 11:20 AW (Rec: 12/30/20 14:00 AW [id number]) Physical Therapy Current Condition Current Condition Evaluation Date 12/30/20 Treatment Diagnosis LLE cellulitis s/p I&D prepatellar bursa; difficulty in walking Onset Date 12/28/20 Weight Bearing Status Weight Bearing Status Weight Bear as Tolerated Allowed Weight Bearing Amount (enter % Initial WB order per ortho was or #) (%) PWB. Via telephone, PT discussed with Dr. Mandujano who stated pt should be WBAT. PT updated WB order. M3 PT-IP Subjective Start: 12/30/20 09:05 Freq: NEEDED Status: Discharge Protocol: Document 12/31/20 09:45 AB (Rec: 12/31/20 12:26 AB [id number]) Subjective Physical Therapy Visit Type Type Treatment Note Visit Start Time 09:45 Visit Stop Time 10:15 Total Visit Minutes 30 Number of LARD MAKER Visits 0 Physical Therapy Visit Comments Patient Comments pt is agreeable to do PT Therapy Pain Assessment Pain Present Pain Present Denied Pain M4 PT-IP Mobility and Gait Start: 12/30/20 09:05 Freq: NEEDED Status: Discharge Protocol: Document 12/31/20 09:45 AB (Rec: 12/31/20 12:26 AB [id number]) PT-Bed Mobility Assessment Supine to Sit Supine to Sit Standby Assistance PT-Transfer Assessment Sit to and From Stand Sit to and from Stand Standby Assistance,1 Person Assistance Equipment Transfer Assistive Device Gait Belt,Straight Cane Orthotic/Prosthetic Devices or Brace: No Transfers Transfer Destination Toilet Transfer Technique ambulated using SPC Transfer Ability Level of Assist Standby Assistance,Contact Guard Assistance,1 Person Assistance,Use of Upper Extremities Comments Mobility Comments pt completed supine to sit SBA . completed sit to stand from EOB SBA and ambulated ~ 150 ft using SPC SBA to occasional CGA with (+) LOB but able to recover. pt requested to use the toilet and ambulated to the toilet. Pt ambulated again towards the stairs ~ 200 ft using SPC SBA to CGA with (+) LOB midway with ambulation requiring CGA. pt stated that L knee is starting to give out due to feeling tired. completed stairs using SPC ascending SBA to CGA. SBA to CGA for descending but used L rail. pt stated that there is a L side bar that he holds on to. assist pt back to his room. ambulated from w/c to chair using SPC SBA. positioned on chair. call light and table placed within reach. Gait Assessment Gait Gait Assistance Required: Standby Assistance,Contact Guard Assist Distance (Feet) 200 Able to Maintain Weight Bearing Status Yes During Gait Assistive Devices Assistive Device Gait Belt,Straight Cane Orthotic/Prosthetic Devices or Brace: No Gait Deviations General Gait Pattern Antalgic,Decreased Stride Length,Decreased Feet Clearance Factors Limiting Gait Function Factors Limiting Gait Function Decreased Activity Tolerance, Decreased Strength,Poor Balance,Poor Safety Awareness Comments Gait Comments pls refer to mobility section for details Stair Climbing Assessment Evaluation Level of Assist On Stairs Standby Assistance Devices Stair Climbing Assistive Devices Straight Cane Technique/Endurance Stair Climbing Direction Ascend and Descend Stair Climbing Technique Step to Step Number of Steps Climbed 3 Stair Climbing Set # Repetitions (reps) 1 Comments Stair Climbing Comments pls refer to mobility section for details M5 PT-IP Objective Assessments Start: 12/30/20 09:05 Freq: NEEDED Status: Discharge Protocol: Document 12/30/20 11:20 AW (Rec: 12/30/20 14:00 AW [id number]) Orientation Orientation/Cognition Level of Alertness Confusional State Orientation Name,Month,Place,Situation Language Function Ability No Deficits Noted Safety Awareness Decreased Safety Awareness Gross Range of Motion Lower Extremity ROM Assessment Left Impaired Impairments lacks ~10 degrees extension secondary to pain Strength Lower Extremity Strength Assessment Left Impaired Hip 4-/5 Knee 3-/5 Sensation Assessment Sensation Gross Sensation Right LE Impaired,Left LE Impaired Light Touch Impaired Proprioception (Position) Impaired Comments Sensation Comments Peripheral neuropathy affects bilateral feet to ~3 above malleoli. Pt's performs regular skin checks. M6 PT-IP Treatment Start: 12/30/20 09:05 Freq: NEEDED Status: Discharge Protocol: Document 12/31/20 09:45 AB (Rec: 12/31/20 12:26 AB [id number]) Physical Therapy Treatment Education Education Provided Safety M7 PT-IP Assessment and Plan Start: 12/30/20 09:05 Freq: NEEDED Status: Discharge Protocol: Document 12/31/20 09:45 AB (Rec: 12/31/20 12:26 AB [id number]) PT Summary Assessment and Plan Potential Rehabilitation Potential Good Summary Impairments Pain,ROM,Strength,Balance, Cognition,Bed Mobility, Transfers,Gait,Activity Tolerance Progress Towards Goals Slow Progress due to Medical Issues,Slow Progress due to Activity Tolerance Assessment Summary pt requiring SBA to CGA using SPC for ambulation. pt able to manage short distance ambulation but with increase unsteadiness with long distance mobility. pt educated on safety and stated that his spouse can assist and is usually beside him when he goes outdoors. pt will have spouse to assist him upon d/c and will also benefit from HHPT. Goals Bed Mobility Goal Standby Assistance Transfer Goal Independent,Cane Gait Goal Standby Assistance,Cane Gait Distance 150 Other Goals - up/down 2 steps with R rail ascending and SPC SBA Days to Meet Goals 5 Frequency of Treatment Frequency Of Treatment Once a Day Treatment Plan Physical Therapy Treatment Plan Bed Mobility Training,Transfer Training,Gait Training, Therapeutic Exercise,Balance Retraining,Post Op Education, Discharge Planning,Hot or Cold Pack,Neuromuscular Re-ed Recommendations To Nursing Amount of Assist Needed 1 Person Assist Discharge Recommendations PT Discharge Recommendations Home with Assistance,Home Health Transportation Needs at Discharge Private Vehicle
--- NOTE | 2020-12-31 10:03 | OT.IP.TRT ---
Current Diagnoses Cellulitis of left lower limb (12/28/20) Surgery Performed Operation Date: 12/29/20 18:00 Actual Procedures p I&D knee(Left) - Jimbo Rice MD Occupational Therapy Treatment Note M2 OT-IP Current Condition Start: 12/30/20 12:25 Freq: Status: Active Protocol: Document 12/30/20 12:25 CCC (Rec: 12/30/20 12:51 CCC [id number]) Occupational Therapy Current Condition Current Condition Evaluation Date 12/30/20 Treatment Diagnosis Septic left prepatellar bursitis s/p I and D of Left perpatellar bursitis Diagnosis Onset Date 12/28/20 M3 OT- IP Subjective and Pain Start: 12/30/20 12:25 Freq: Status: Active Protocol: Document 12/31/20 10:05 CGR (Rec: 12/31/20 10:15 CGR [id number]) OT- Subjective Occupational Therapy Visit Type Type Progress Note Visit Start Time 09:54 Visit Stop Time 10:03 Total Visit Minutes 9 Notes Co-treat with P.T. Pt requesting to use the toilet while walking with P.T. OT Pain Assessment Pain When Pain Assessed During Mobility Pain Present Pain Present Denied Pain M4 OT- IP ADL's Start: 12/30/20 12:25 Freq: Status: Active Protocol: Document 12/31/20 10:05 CGR (Rec: 12/31/20 10:15 CGR [id number]) OT [id number] Comments OT Self-Feeding Comments Not meal time OT ADL-Grooming General Evaluation Grooming Ability Independent Areas Needing Assistance Retrieving/Set-up of Grooming Items,Face Washing Comments OT Grooming Comments standing at sink OT ADL-Oral Care General Eval Oral Care Ability Independent Areas of Assistance Brushing Teeth Comments Oral Care Comments standing at sink OT ADL-Dressing Comments OT Dressing Comments Not performed. Pt states his will be assisting with all LB dressing as needed. OT ADL-Toileting General Evaluation Toileting Ability Standby Assistance Comments OT Toileting Comments Pt needed VC to lower the toilet seat to sit after he had aligned himself to sit. OT ADL-Bathing Comments OT Bathing Comments Not performed M5 OT- IP IADL's Start: 12/30/20 12:25 Freq: Status: Active Protocol: Document 12/30/20 12:25 CCC (Rec: 12/30/20 12:51 [facility] [id number]) OT-Instrumental Activities of Daily Living Home Safety Awareness Awareness of Need for Assistance at Home Good Awareness Home Safety Comments Pt sttates he will just ask his wofe to assist as needed. Medication Management Medication Management Comments At this time best for his to assist. Money Management Money Management Caregiver Provides Assistance Meal Preparation Meal Preparation Caregiver Provides Assist Services Account Manager Services Account Manager Caregiver Provides Assist Driving Driving Concerns Identified Regarding Safety Driving Comments At this time pt is aware not to drive as does not feel well enough to drive at this time. M6 OT- IP Functional Cognition Start: 12/30/20 12:25 Freq: Status: Active Protocol: Document 12/31/20 10:05 CGR (Rec: 12/31/20 10:15 R [id number]) Cognitive Factors Limiting Selfcare Function Cognitive Ability Level of Alertness Alert Patient Orientation Name,Age,Birthday,Month,Date, Year,Day of Week,Place, Situation Attention Span Ability Capable of Focused Attention, Capable of Sustained Attention Ability to Follow Commands Able to Follow One Step Commands with Increased Time, Able to Follow One Step Commands with Repetition Cognitive Comments Cognitive Assessment Comments Pt demonstrates some STM deficits and poor safety. Pt needed VC to lower the toilet seat before sitting and to bring his cane with him after performing ADLs at the sink. OT- Vision and Hearing OT- Hearing Assessment OT- Hearing Assessment WFL OT- Vision Assessment Visual Acuity Glasses All The Time Vision Assessment Comments Pt wears bifocals but says he takes them off to drive and look far away. Pt having trouble with right lower quadrants. Pt's left eyelid droops which may also affect his vision. Suggested pt see his eye doctor. M7 OT- IP Mobility and Balance Start: 12/30/20 12:25 Freq: Status: Active Protocol: Document 12/31/20 10:05 CGR (Rec: 12/31/20 10:15 CGR [id number]) OT-Transfer Assessment Sit to and From Stand Sit to and from Stand Standby Assistance,Contact Guard Assistance Transfers Transfer Ability Standby Assistance,Contact Guard Assistance Technique Transfer Destination Toilet Transfer Technique Stand Step Pivot Devices Transfer Assistive Devices Gait Belt,Straight Cane Comments Mobility Comments Pt mobilized in the room and bathroom with CGA to SBA. Pt with multiple small LOB seen throughout session. OT- Gait Assessment Gait Gait Assistance Required: Standby Assistance,Contact Guard Assist Assistive Devices Assistive Device Gait Belt,Straight Cane Comments Gait Ability Comments See PT note for further information, however, pt with multiple small LOB throughout session and at least one larger LOB with pt truning his head to the L for scanning. M8 OT- IP Objective Assessments Start: 12/30/20 12:25 Freq: Status: Active Protocol: Document 12/30/20 12:25 CCC (Rec: 12/30/20 12:51 CCC [id number]) OT Gross Range of Motion Upper Extremity Range of Motion Assessment Within Functional Limits OT Strength Upper Extremity Strength Assessment Within Functional Limits OT- Coordination Assessment Upper Extremity Finger to Nose Test Within Functional Limits OT-Muscle Tone Assessment Muscle Tone WNL Yes M9 OT- IP Assessment and Plan Start: 12/30/20 12:25 Freq: Status: Active Protocol: Document 12/31/20 10:05 CGR (Rec: 12/31/20 10:15 CGR [id number]) OT Summary Assessment and Plan Potential Rehabilitation Potential Excellent Analytic Complexity at Evaluation Low Summary OT Impairments Balance,Functional Cognition, Functional Mobility,Dressing, Toileting,Bathing,Toilet Transfers,Shower Transfers, Activity Tolerance Progress Towards Goals Progressing Toward Goals Assessment Summary Pt low complexity and main barriers are steps, decreased dynamic balance and decreased for time for TRail Making Part B which implies pt has severe impairment for visual attention, task switching, mental flexibility, executive functioning, and speed of processing as performed on eval. Pt is currently ambulating with multiple LOB. Pt is likely safe for d/c home only with assist for all mobility. Per chart, pt's assist with dressing and other ADLs as needed and may be able to perform assist for mobility at this time. Goals Self-Feeding Goal Independent Grooming Goal Independent Dressing Goal Independent Toileting Goal Independent Bathing Goal Independent Toilet Transfer Goal Independent Shower Transfer Goal Independent Days to Meet Goals 5 Frequency of Treatment Frequency Of Treatment Once a Day Treatment Plan OT Treatment Plan ADL Training,Functional Cognition Training,Functional Mobility,Patient/Family Education,Discharge Planning Other Treatment Recommendations and Next I for ADL's with use of SPC Treatment Focus for mobility. Discharge Recommendations OT Discharge Recommendations Home with Assistance Transportation Needs at Discharge Private Vehicle
--- NOTE | 2020-12-31 10:57 | CM.DPC ---
DCP: continued: pt now has a d/c order from Dr. Art and ortho PA Ulysses is here now seeing pt and researching the plan for the knee packing. Pt's is here and waiting for updated information. Pt says he is very pleased to be going home today. IMM #2 was presented to him per protocol earlier this morning. P: home today to supportive care of spouse and clinic followup.
--- NOTE | 2020-12-31 11:48 | PC.NURSE ---
Day shift: Pt left unit at approx 1150. Paperwork signed and all questions answered. Pt has MD scripts. Pt to make doctors appointments when they get home. Pt's spouse in room for all instructions. They were given dressing change supplies. 4x4 [address] over knee per ortho PA and covered leg w/ gauze then an KATHRINE wrap. Taken to car in by student RN. Pt's spouse is driving them home. Cellulitis improving. Pt has all personal belongings.
--- NOTE | 2020-12-31 17:39 | P.DS_ITS ---
History of Present Illness History of Present Illness Chief complaint: LEFT KNEE PAIN AFTER FALL 2WKS AGO Narrative: Mr. Covington is a 80M afib, htn, hl, peripheral neuropathy who is coming in with worsening swelling and pain in his left leg. He noted he had a 2 weeks ago and hit his knee. He had some swelling and an abrasion. He saw a physician and was given a z-pack for this which he finished about a week ago. He has noticed worsening swelling, erythema over his knee and worsening to extending down his leg. He did not have fevers, joint immobility, nausea, vomiting, shortness of breath. In the Er, workup was done. His vitals were unremarkable. Labs notable for a WBC of 10.5 with 76.6 PMNs, INR 2.2, creatinine 0.76. Procalcitonin of 0.06. He was given IV vancomycin and admitted for further treatment. Discharge Providers Provider Date of admission: 12/28/20 15:58 Discharge Date: 12/31/20 Primary care physician: Fausto Hoskins MD Consults: 12/29/20 19:43 Consult to Discharge Planning Routine Comment: Consult to Physical Therapy Evaluate & Treat Comment: Physician Instructions: Evaluate and Treat Consult to Respiratory Therapy Evaluate & Treat Comment: Physician Instructions: Evaluate and treat 12/30/20 10:23 Consult to Occupational Therapy Evaluate & Treat Comment: Physician Instructions: Evaluate and treat Consult to Physical Therapy Evaluate & Treat Comment: Physician Instructions: Evaluate and Treat Discharge provider: Jorje Art MD Summary Hospital Course Discharge Diagnosis: 1. Acute left leg cellulitis, left prepatellar septic bursitis 2. Atrial fibrillation 3. Peripheral neuropathy 4. Hypertension 5. Hyperlipidemia Hospital Course: Mr. Covington presented after a fall and laceration to his knee, and then developed a left swollen knee and surrounding cellulitis. He had drainage of his bursa in the emergency department. He went drainage and washout with Dr. Rice on 12/29. Cultures grew back with MSSA. It was determined it was sensitive to oxacillin. He was initially on vancomycin but was switched on 12/30 to dicloxacillin. He is planned for at least a 10 day course of antibiotics, which may need to be extended depending on course in improvement. He should follow up with orthopedics and his PCP within a week. He did have an ultrasound of his left leg given the swelling which ruled out DVT. He did have brief pe riods of tachycardia of his known afib, which is expected in the setting of infection. He had his metoprolol increased slightly because of this to 50mg BID. Code status: Full, proxy is Esme Covington Discharge time: 35 minutes Status at Discharge Cognitive/behavioral status at discharge: oriented Functional status at discharge: independent ambulation Overall status at discharge: patient is progressing back to baseline Time Spent with Patient Time spent: Less than 30 minutes Exam Vital Signs (past 8 hours): - 12/31/20 09:51 Pulse Rate 86 Respiratory Rate 18 Blood Pressure 125/95 H Pulse Oximetry 94 Oxygen Delivery Method Room Air Oxygen Flow Rate 0 Narrative Exam Narrative: GEN: No acute distress HEENT: PERRL, moist mucous membranes NECK: trachea midline, no JVD CV: irregularly irregular, with no murmurs PULM: scattered wheezing ABD: soft, nontender, nondistended, no organomegaly, normal bowel sounds EXT: left knee is bandaged, improving erythema and swelling of left leg, has normal knee extension and flexion NEURO: AAOx3, moving all extremities PSYCH: pleasant mood Objective Labs Result Diagrams: 12/31/20 05:51 12/31/20 05:51 Labs: Laboratory Results - last 24 hr 12/31/20 12/31/20 12/31/20 05:51 05:51 05:51 WBC 10.6 RBC 4.35 L Hgb 13.2 L Hct 38.9 L MCV 89.4 MCH 30.4 MCHC 34.0 RDW 13.5 Plt Count 248 PT 23.6 H D INR 2.1 H Sodium 136 L Potassium 3.8 Chloride 101 Carbon Dioxide 28 BUN 15 Creatinine 0.68 Estimated GFR > 60.0 BUN/Creatinine Ratio 22.1 H Glucose 152 H Calcium 8.6 PFSH Medical History Atrial fibrillation Hyperlipidemia Hypertension Social History household members: spouse Smoking Status: Former smoker alcohol intake: never Discharge Plan Discharge Plan Patient Disposition: Home Provider Discharge Comment: Mr. Covington was admitted with an infection. He was found to have a cellulitis (skin infection) and prepatellar bursa infection (infection in bursa in his knee). He was started on antibiotics. He had surgical drainage and washout of the bursa. He was discharged on dicloxacillin antibiotic to take for 10 days. He should follow up his PCP in 1-[address] Rice of orthopedics. He also had intermittent fast heart rates, he has known atrial fibrillation, and most likely the infection caused his heart rate to be faster. His metoprolol was increased to 50mg BID to control his heart rate. Discharge orders & Medications Prescriptions: New metoprolol tartrate 50 mg Tablet 50 mg PO BID 30 Days Qty: 60 RF: 0 dicloxacillin 250 mg Capsule 500 mg PO Q6H 10 Days Qty: 80 RF: 0 hydrocodone-acetaminophen 5-325 mg tablet 1 tab PO Q4-6H PRN (Reason: pain) Qty: 10 RF: 0 Continued Lyrica 150 mg capsule 100 mg PO BID RF: 0 duloxetine [Cymbalta] 30 mg capsule,delayed release(DR/EC) 20 mg PO DAILY RF: 0 Xarelto 20 mg tablet 20 mg PO DAILY RF: 0 losartan 50 mg tablet 50 mg PO DAILY RF: 0 atorvastatin [Lipitor] 20 mg tablet 20 mg PO DAILY RF: 0 alpha lipoic acid 300 mg capsule 300 mg PO DAILY RF: 0 cholecalciferol (vitamin D3) 2,000 unit capsule 2,000 unit PO DAILY RF: 0 Discontinued metoprolol tartrate 50 mg tablet See Rx Instructions .ROUTE .COMPLEX RF: 0 Follow up/Referrals: Fausto Hoskins MD [Primary Care Provider] - Diet/Activity/Treatments Diet: Diet as Tolerated Visit Report/Discharge Packet Instructions: How to Care for a Surgical Wound, DI for Cellulitis -- Adult, How to Prevent Falls, DI for Prescription Opioid Use, Metoprolol, Dicloxacillin, DI for Incision and Drainage, [facility]: Wound Care Discharge Data Primary Care Provider: Fausto Hoskins Quality VTE Deep Vein Thrombosis/Pulmonary Embolism Present on Admission: No MIPS - DC The patient has current or prior documentation of left ventricular ejection fraction (LVEF) less than 40%, or moderate or severely depressed left ventricular systolic function.: No
== END 2020-12-31 11:52 | disposition home or self-care (01) | DRG 988 ==
LOC: ED 13:02 → AC 16:17
PROVIDERS: Nurse Practitioner Family; Admitting Provider Internal Medicine; Emergency Provider Emergency Medicine; Family Provider Family Medicine; PCP Family Medicine; Referring Provider Emergency Medicine; Visit Provider Orthopaedic Surgery
PROC: 0MBP0ZZ Excision of Left Knee Bursa and Ligament, Open Approach (ICD-10-PCS; principal; 2020-12-29 18:00)
DX: L03.116 Cellulitis of left lower limb (principal); I48.19 Other persistent atrial fibrillation; M71.162 Other infective bursitis, left knee; I10 Essential (primary) hypertension; E78.5 Hyperlipidemia, unspecified; G62.9 Polyneuropathy, unspecified; B95.61 Methicillin susceptible Staphylococcus aureus infection as the cause of diseases classified elsewhere; W19.XXXA Unspecified fall, initial encounter; Z87.891 Personal history of nicotine dependence; Z20.822 Contact with and (suspected) exposure to COVID-19
CPT/HCPCS: 20610; 36415; 71045; 73562; 80048; 80053; 80202; 81001; 83605; 83690; 84145; 85025; 85027; 85610; 85730; 87040; 87070; 87075; 87077; 87147; 87176; 87186; 87205; 87635; 89051; 93005; 93010; 93971; 96361; 96365; 97116; 97161; 97165; 97530; 97535; 99284; C9803; J0696; J2250; J2405; J2704; J3010

== ENCOUNTER → 2021-03-07 12:02 | Outpatient (CLI) | payer MEDICARE, OTHER, SELFPAY ==
[2020-12-28 16:35] VITALS: BMI 37.9
--- NOTE | 2021-03-07 12:22 | DI.CT.S_ITS ---
PROCEDURE: CT HEAD/BRAIN WO CON INDICATIONS: Altered mental status, unspecified TECHNIQUE: Noncontrast 4.5 mm thick angled axial sections acquired from the foramen magnum to the vertex, with coronal and sagittal reformats. For radiation dose reduction, the following was used: automated exposure control, adjustment of mA and/or kV according to patient size. COMPARISON: None. FINDINGS: Image quality: Excellent. CSF spaces: Basal cisterns are patent. No extra-axial fluid collections. The ventricles are symmetric in size and shape. Brain: No intracranial bleeds or masses. There is cerebral volume loss for age, with resultant ventricular and sulcal prominence. There are periventricular and deep white matter chronic small vessel ischemic changes. There is intracranial internal carotid artery atherosclerosis. Skull and face: Calvarium and visualized facial bones appear intact, without suspicious lesions. Sinuses: Visualized sinuses and mastoids are clear. IMPRESSION: Mild atrophy and chronic ischemic change without acute hemorrhage or mass effect Dictated by: Narayan Langston M.D. on 03/07/2021 at 14:10 Approved by: Narayan Langston M.D. on 03/07/2021 at 14:47
== END ==
PROVIDERS: Family Provider Family Medicine; PCP Family Medicine; Referring Provider Family Medicine; Visit Provider Family Medicine
DX: R41.82 Altered mental status, unspecified (principal)
CPT/HCPCS: 70450

== ENCOUNTER 2021-10-07 13:23 | Emergency (ER) | payer MEDICARE, OTHER, SELFPAY ==
[2020-12-28 16:35] VITALS: BMI 37.9
[2021-10-07] VITALS (22 sets, daily range): BP systolic 145–189; BP diastolic 80–115; PULSE 66–115; RESP 17–33; TEMP 36.7; O2SAT 85–99; BMI 32.1
--- NOTE | 2021-10-07 13:24 | DI.CT.S_ITS ---
PROCEDURE: CT HEAD/BRAIN WO CON INDICATIONS: Head trauma. Question CVA. TECHNIQUE: Noncontrast 4.5 mm thick angled axial sections acquired from the foramen magnum to the vertex, with coronal and sagittal reformats. For radiation dose reduction, the following was used: automated exposure control, adjustment of mA and/or kV according to patient size. COMPARISON: [facility], CT, CT FACIAL BONES WO CON, 10/07/2021, 13:25. [facility], CT, CT HEAD/BRAIN WO CON, 03/07/2021, 12:15. FINDINGS: Image quality: Excellent. CSF spaces: Basal cisterns are patent. No extra-axial fluid collections. There is mild cerebral volume loss, with resultant ventricular and sulcal prominence. Brain: No intracranial hemorrhage, mass, or mass effect. There are subcortical, periventricular and deep white matter hypodensities consistent with mild chronic small vessel ischemic changes. The anne-white matter junction appears preserved. There is intracranial internal carotid artery atherosclerosis. Skull and face: Calvarium and visualized facial bones appear intact. There is left supraorbital soft tissue swelling with a subcutaneous hematoma in the left forehead region. The globes appear intact. No intraorbital hematoma collections or fat stranding. Sinuses: Visualized sinuses demonstrate mild mucosal thickening within the ethmoid and maxillary sinuses. Small air-fluid levels within the bilateral maxillary sinuses likely reflect acute sinusitis. Mastoid air cells are clear. IMPRESSION: 1. No acute intracranial abnormality. 2. Mild cerebral volume loss and chronic white matter small vessel ischemic changes. 3. Left supraorbital soft tissue swelling with a subcutaneous hematoma in the left forehead region. No discrete fractures identified. 4. Mild sinus mucosal thickening bilaterally with small bilateral air-fluid levels in the maxillary sinuses. Findings likely reflect acute sinusitis given the bilateral distribution and less likely sequelae of trauma. Dictated by: Liu Jackson M.D. on 10/07/2021 at 13:36 Approved by: Liu Jackson M.D. on 10/07/2021 at 13:41
--- NOTE | 2021-10-07 13:26 | DI.CT.S_ITS ---
PROCEDURE: CT FACIAL BONES WO CON INDICATIONS: Fall. Left orbital injury. TECHNIQUE: Noncontrast 2.5 mm thick axial images acquired from the mandible through the frontal sinuses, with coronal and sagittal reformatting. For radiation dose reduction, the following was used: automated exposure control, adjustment of mA and/or kV according to patient size. COMPARISON: CT, CT HEAD/BRAIN WO/W CON, 09/06/2018, 11:11. [facility], CT, CT HEAD/BRAIN WO CON, 03/07/2021, 12:15. [facility], CT, CT HEAD/BRAIN WO CON, 10/07/2021, 13:25. FINDINGS: Image quality: Excellent. Bones and teeth: Orbital johnson are intact. Sinus johnson demonstrate no fracture or deformity. Nasal bones and septum are intact. Visualized portions of the mandible demonstrate no fractures or subluxation. Zygomatic arches are intact. Pterygoid plates are intact. Visualized portions of the skull base and auditory canals are intact. Sinuses: There is mild mucosal thickening within the bilateral ethmoid and maxillary sinuses with small air-fluid levels in the maxillary sinuses. Mastoid air cells are clear. Soft tissues: There is left supraorbital soft tissue swelling with a subcutaneous hematoma in the left forehead region. The globes are intact. No intraorbital hematoma collections or fat stranding. Vascular: Visualized vascular structures appear normal in the absence of contrast. Bony vascular foramina and canals are intact. IMPRESSION: 1. No acute facial bone fracture identified. 2. Left supraorbital soft tissue swelling and subcutaneous hematoma. 3. Small air-fluid levels within the bilateral maxillary sinuses likely reflect acute sinusitis and less likely sequelae of trauma given the absence of a discrete fracture as well as the bilateral distribution. Dictated by: Liu Jackson M.D. on 10/07/2021 at 13:41 Approved by: Liu Jackson M.D. on 10/07/2021 at 13:52
--- NOTE | 2021-10-07 13:33 | DI.RAD.S_ITS ---
PROCEDURE: XR CHEST 1V INDICATIONS: Possible stroke TECHNIQUE: One view of the chest was acquired. COMPARISON: [facility], , XR CHEST 1V, 12/28/2020, 13:30. FINDINGS: Surgical changes and devices: Right shoulder hemiarthroplasty noted Lungs and pleura: Lungs are clear. No pleural effusions or pneumothorax. Mediastinum: Mediastinal contours appear normal. Heart size is normal. Bones and chest wall: No suspicious bony lesions. Overlying soft tissues appear unremarkable. IMPRESSION: No acute cardiopulmonary findings Approved by: Narayan Langston M.D. on 10/07/2021 at 13:43
--- NOTE | 2021-10-07 14:05 | PC.NURSE ---
Left eye deviates to left, can briefly overcome deviation with nystagmus present with correction of deviation. Left eye also with ecchymosis and edema.
[2021-10-07 14:12] LABS: Add Manual Diff / Slide Review NO; Basophils Absolute Auto 100 /uL (0-100); Eosinophils Absolute Auto 300 /uL (0-450); Hematocrit 46.4 % (41-53); Hemoglobin 15.9 g/dL (13.5-17.5); Lymphocytes Absolute Auto 1900 /uL (1100-4500); Lymphocytes Percent Auto 20.4 % (25-40); Mean Corpuscular HGB Conc 34.2 % (30-36); Mean Corpuscular Hemoglobin 31.1 PG (26-34); Mean Corpuscular Volume 90.9 fL (80-100); Monocytes Absolute Auto 700 /uL (0-900); Monocytes Percent Auto 7.4 % (3-14); Neutrophils Absolute Auto 6300 /uL (1500-7000); Neutrophils Percent Auto 68.2 % (50-75); Platelet Count 193 X10^3/uL (150-400); Red Cell Distribution Width 13.4 % (11.6-14.8); White Blood Cell Count 9.2 X10^3/uL (4.5-11.0)
[2021-10-07 14:19] LABS: INR 1.2 (0.9-1.3); Prothrombin Time 13.8 SECONDS (10.1-12.7)
[2021-10-07 14:20] LABS: COVID19 -Nasal RAPID Negative (Negative)
[2021-10-07 14:22] LABS: PTT Partial Thromboplastin Tim 39 SECONDS (26.4-36.2)
[2021-10-07 14:24] LABS: Alanine Aminotransferase 20 IU/L (<50); Albumin 4.2 g/dL (3.5-5.0); Albumin Globulin Ratio 1.2 (1.0-2.8); Alkaline Phosphatase 112 U/L (38-126); Aspartate Aminotransferase 32 IU/L (17-59); BUN Creatinine Ratio 18.4 (6-22); Bilirubin Total 1.3 mg/dL (0.2-1.3); Blood Urea Nitrogen 16 mg/dL (9-20); Calcium 8.9 mg/dL (8.4-10.2); Carbon Dioxide 34 mmol/L (22-32); Chloride 103 mmol/L (98-107); Creatine Kinase 224 U/L (55-170); Estimated Glomerular Filt Rate > 60.0 mL/min (>60); Globulin 3.4 g/dL (1.7-4.1); Glucose 123 mg/dL (80-110); Potassium 3.9 mmol/L (3.4-5.1); Sodium 140 mmol/L (137-145); Total Protein 7.6 g/dL (6.3-8.2)
[2021-10-07 14:35] LABS: Troponin I < 0.012 ng/mL (0.01-0.034)
[2021-10-07 14:51] LABS: CKMB % Relative Index 0.5 % (1.5-5.0); Creatine Kinase MB 1.17 ng/mL (<2.37); HEMOLYSIS 19 (0-50)
--- NOTE | 2021-10-07 15:08 | DI.MRI.S_ITS ---
PROCEDURE: MR HEAD/BRAIN WO CON INDICATIONS: History of diplopia. Concern for CVA. TECHNIQUE: Non-contrast axial T1 spin echo, axial T2 fast spin echo, sagittal and axial FLAIR, coronal T2 fast spin echo, axial gradient echo, axial diffusion and ADC through the brain. COMPARISON: [facility], CT, CT HEAD/BRAIN WO CON, 03/07/2021, 12:15. [facility], CT, CT HEAD/BRAIN WO CON, 10/07/2021, 13:25. FINDINGS: Image quality: Degraded by patient motion artifact. CSF spaces: Ventricles appear symmetric in size and shape. Basal cisterns are patent. No extra-axial fluid collections. Brain: No intracranial bleeds or mass effects. There is mild cerebral volume loss for age. There are mild periventricular and deep white matter chronic small vessel ischemic changes. Brainstem appears normal. Diffusion-weighted images show no acute ischemic insults. No chronic ischemic insults. Normal intravascular flow voids are present. Skull and face: Calvarial bone marrow is normal in signal. Orbits are normal. Left frontal scalp hematoma is stable compared to prior CT scan obtained October 07, 2021. . Sinuses: Mild mucosal thickening noted in the maxillary sinuses bilaterally. Frothy air-fluid level noted in the right maxillary sinus. The mastoids are clear. IMPRESSION: 1. Image quality degraded by patient motion artifact. 2. No acute intracranial disease process. 3. No areas of acute or chronic infarction. 4. No intracranial hemorrhage. 5. Mild, diffuse cerebral volume loss. 6. Mild periventricular and subcortical chronic microvascular ischemic change. 7. Bilateral maxillary sinusitis. Dictated by: Natividad Mcclain MD, PhD on 10/07/2021 at 16:02 Approved by: Natividad Mcclain MD, PhD on 10/07/2021 at 16:06
--- NOTE | 2021-10-07 15:12 | ED.NEUROSD ---
HPI - Neuro Symptoms/Deficit General Chief Complaint: Neuro Symptoms/Deficit Stated Complaint: diffuclty walking, falls Time Seen by Provider: 10/07/21 13:23 Source: patient and EMS Mode of arrival: EMS History of Present Illness HPI Narrative: The patient arrives by EMS from the walk-in clinic in [place]. He presents air with multiple falls. Two days ago he was returning home and fell against the garage door. He then fell 2 more times entering the house. He went to the bathroom, and fell 3 more times. He is not generally ambulatory, using assistance skin around his own house. He is anticoagulated due to AFib. His multiple facial contusions, especially a large contusion around his left eye. He denies acute visual changes. The evaluating PA at the [facility] felt he needed evaluation for possible stroke. He is alert and orient upon arrival with no focal motor sensory deficits. He says he has balance issues with peripheral neuropathy. He occasionally falls. He has not been ill. He has no fever, chills or cough. He has no palpitations or chest discomfort. He has no speech changes or confusion. He has diplopia of about a 2 year duration. He has not seen an eye doctor. On Anticoagulants: Yes (xeralto) Related Data Home Medications Medication Instructions Recorded Confirmed alpha lipoic acid 300 mg capsule 300 mg PO DAILY 03/26/19 12/28/20 atorvastatin 20 mg tablet (Lipitor) 20 mg PO DAILY 03/26/19 12/28/20 cholecalciferol (vitamin D3) 50 2,000 unit PO DAILY 03/26/19 12/28/20 mcg (2,000 unit) capsule duloxetine 30 mg capsule,delayed 20 mg PO DAILY cap 03/26/19 12/28/20 release (Cymbalta) losartan 50 mg tablet 50 mg PO DAILY 03/26/19 12/28/20 pregabalin 150 mg capsule (Lyrica) 100 mg PO BID 03/26/19 12/28/20 rivaroxaban 20 mg tablet (Xarelto) 20 mg PO DAILY 03/26/19 12/28/20 Previous Rx's Medication Instructions Recorded hydrocodone 5 mg-acetaminophen 325 1 tab PO Q4-6H PRN #10 tab 12/31/20 mg tablet doxycycline hyclate 100 mg capsule 100 mg PO BID 10 Days #20 cap 01/28/22 Allergies Allergy/AdvReac Type Severity Reaction Status Date / Time penicillin G [PENICILLIN G] Allergy Severe SYNCOPAL Verified 12/28/20 23:20 EPISODE A CHILD clindamycin [CLINDAMYCIN] Allergy Intermediate RASH Verified 12/28/20 23:20 Review of Systems Constitutional Constitutional: Denies chills, Denies fatigue, Denies headache(s) and Denies weakness Eyes Eyes: Denies blurry vision and Denies change in vision ENT Ears, Nose, Mouth, and Throat: Denies vertigo, Denies dizziness, Denies headache(s), Denies mouth lesions, Denies neck pain and Denies sore throat Cardiovascular Cardiovascular: Denies chest pain, Denies syncope, Denies edema, Denies irregular heart rhythm and Denies dyspnea Respiratory Respiratory: Denies cough and Denies dyspnea Gastrointestinal Gastrointestinal: Denies abdominal pain, Denies change in stool character, Denies constipation and Denies vomiting Musculoskeletal Musculoskeletal: Denies back pain and Denies neck pain Comments: No peripheral edema. Integumentary/Breasts Skin/Breast: Denies lesions and Denies rash Neurologic Neurologic: Denies confusion, Denies vertigo, Denies dizziness, Denies syncope, Denies headache(s), Denies memory loss and Denies weakness Psychiatric Psychiatric: Denies anxiety, Denies confusion and Denies memory loss Endocrine Endocrine: Denies fatigue Hematologic/Lymphatic On Anticoagulants: Yes (xeralto) Patient History Medical History Atrial fibrillation Hyperlipidemia Hypertension Social History household members: spouse Smoking Status: Former smoker alcohol intake: never Smoking Status: Former smoker alcohol intake frequency: holidays/special occasions only Substance Use Type: does not use Exam Initial Vital Signs Initial Vital Signs: Vital Signs Pulse Rate 71 10/07/21 13:32 Respiratory Rate 18 10/07/21 13:32 Pulse Oximetry 96 10/07/21 13:32 Const General: cooperative, comfortable, well developed and well groomed [facility] Head: other (Multiple facial contusions. Left periorbital edema.) Nose: external nose normal and nares normal Face and sinus: face asymmetric and no erythema Mouth: oral mucosae normal Teeth and gingiva: dentition normal and gingiva normal Throat: posterior oropharynx normal Eyes Conjunctivae: conjunctivae normal Sclera: sclerae normal Cornea: corneas normal Pupils: PERRL Direct ophthalmoscopy: anterior chamber normal Neck Neck: full ROM and No tender Chest Chest: normal inspection of the chest Resp Effort & Inspection: normal respiratory effort Auscultation: clear to auscultation bilaterally Cardio Rhythm: abnormal rhythm irregularly irregular Heart Sounds: S1 normal, S2 normal, no click, no gallops and no rubs GI Inspection: normal to inspection Palpation: soft and No tender Auscultation: normal bowel sounds Back/Spine/Pelvis Back: normal to inspection Skin General: no rashes or lesions noted Neuro General: patient alert, patient awake, patient oriented x3 and no focal motor deficits Cognition: normal cognition Speech: speech normal Gait: not ataxic Extrem General: normal to inspection, full ROM, no pedal edema and no calf tenderness Psych Appearance: grossly normal Course Course Course Narrative: There is no evidence of CVA. He has neurologic issues with diplopia, weakness and frequent falls. He has a weak right lateral rectus muscle. He was started on doxycycline for chronic sinusitis noted on the imaging. He is advised to follow-up with an eyewear consultant. Orders Ordered: ED Orders 10/07/21 13:24 CT head/brain wo con Stat 10/07/21 13:26 CT facial bones wo con Stat 10/07/21 13:33 XR chest 1V Stat Urine Drug Screen, Rapid Stat EKG-12 Lead Stat 10/07/21 13:34 COVID19 - ADMIT (PHARMACY TECHNICIAN swab/PCR) Stat 10/07/21 13:51 COVID19 -Nasal swab/Pre-Proc Stat 10/07/21 14:05 Complete Blood Count AUTO DIFF Stat Comprehensive Metabolic Panel Stat Partial Thromboplastin Time Stat Prothrombin Time INR Stat Troponin & CK Cardiac Panel Stat 10/07/21 15:08 MR head/brain wo con Stat Discontinued Medications Doxycycline Hyclate (Doxycycline Hyclate 100 Mg Tablet) 100 mg PO NOW ONE Stop: 10/07/21 17:50 Last Admin: 10/07/21 18:15 Dose: 100 mg Documented by: Vital Signs Vital signs: Vital Signs - 8 hr 10/07/21 13:32 10/07/21 13:33 10/07/21 13:38 Temperature 98.1 F Pulse Rate 71 76 85 Respiratory Rate 18 18 18 Blood Pressure 156/97 H 156/97 H Pulse Oximetry 96 93 99 10/07/21 13:45 10/07/21 14:00 10/07/21 14:15 Temperature Pulse Rate 66 71 70 Respiratory Rate 19 17 25 H Blood Pressure 145/101 H 157/99 H 156/98 H Pulse Oximetry 97 97 97 10/07/21 14:30 10/07/21 14:45 10/07/21 15:00 Temperature Pulse Rate 69 71 76 Respiratory Rate 18 20 24 Blood Pressure 158/98 H 166/80 H Pulse Oximetry 96 96 88 L 10/07/21 15:15 10/07/21 15:16 10/07/21 16:07 Temperature Pulse Rate 75 85 Respiratory Rate 20 17 Blood Pressure 187/115 H Pulse Oximetry 93 10/07/21 16:08 10/07/21 16:15 10/07/21 16:30 Temperature Pulse Rate 100 H 89 72 Respiratory Rate 24 29 H 19 Blood Pressure 182/108 H 154/96 H 189/88 H Pulse Oximetry 96 94 97 10/07/21 16:45 10/07/21 16:46 10/07/21 17:00 Temperature Pulse Rate 115 H 90 97 H Respiratory Rate 33 H 18 21 Blood Pressure 156/89 H 169/111 H Pulse Oximetry 85 L 98 98 10/07/21 17:15 10/07/21 17:30 10/07/21 17:45 Temperature Pulse Rate 69 74 101 H Respiratory Rate 20 17 19 Blood Pressure 182/104 H 161/90 H 159/112 H Pulse Oximetry 95 10/07/21 18:00 Temperature Pulse Rate 76 Respiratory Rate 19 Blood Pressure 185/85 H Pulse Oximetry 97 MDM - Neuro Symptoms/Deficit Lab Data Result diagrams: 10/07/21 14:05 10/07/21 14:05 Labs: Lab Results 10/07/21 10/07/21 10/07/21 Range/Units 13:51 14:05 14:05 WBC 9.2 (4.5-11.0) X10^3/uL RBC 5.10 (4.5-5.9) X10^6/uL Hgb 15.9 (13.5-17.5) g/dL Hct 46.4 (41-53) % MCV 90.9 (80-100) fL MCH 31.1 (26-34) PG MCHC 34.2 (30-36) % RDW 13.4 (11.6-14.8) % Plt Count 193 (150-400) X10^3/uL Neut % (Auto) 68.2 (50-75) % Lymph % (Auto) 20.4 L (25-40) % Foster % (Auto) 7.4 (3-14) % Eos % (Auto) 3.0 (2-4) % Baso % (Auto) 1.0 (0-2) % Neut # (Auto) 6300 (5006-2020) /uL Lymph # (Auto) 1900 (6767-1207) /uL Foster # (Auto) 700 (0-900) /uL Eos # (Auto) 300 (0-450) /uL Baso # (Auto) 100 (0-100) /uL PT (10.1-12.7) SECONDS INR (0.9-1.3) APTT (26.4-36.2) SECONDS Sodium 140 (137-145) mmol/L Potassium 3.9 (3.4-5.1) mmol/L Chloride 103 (98-107) mmol/L Carbon Dioxide 34 H (22-32) mmol/L BUN 16 (9-20) mg/dL Creatinine 0.87 (0.66-1.25) mg/dL Estimated GFR > 60.0 (>60) mL/min BUN/Creatinine Ratio 18.4 (6-22) Glucose 123 H (80-110) mg/dL Calcium 8.9 (8.4-10.2) mg/dL Total Bilirubin 1.3 (0.2-1.3) mg/dL AST 32 (17-59) IU/L ALT 20 (<50) IU/L Alkaline Phosphatase 112 (38-126) U/L Total Creatine Kinase 224 H (55-170) U/L CK-MB (CK-2) 1.17 (<2.37) ng/mL CK-MB (CK-2) Rel Index 0.5 L (1.5-5.0) % Troponin I < 0.012 (0.01-0.034) ng/mL Total Protein 7.6 (6.3-8.2) g/dL Albumin 4.2 (3.5-5.0) g/dL Globulin 3.4 (1.7-4.1) g/dL Albumin/Globulin Ratio 1.2 (1.0-2.8) SARS-CoV-2 (PCR) Negative (Negative) 10/07/21 Range/Units 14:05 WBC (4.5-11.0) X10^3/uL RBC (4.5-5.9) X10^6/uL Hgb (13.5-17.5) g/dL Hct (41-53) % MCV (80-100) fL MCH (26-34) PG MCHC (30-36) % RDW (11.6-14.8) % Plt Count (150-400) X10^3/uL Neut % (Auto) (50-75) % Lymph % (Auto) (25-40) % Foster % (Auto) (3-14) % Eos % (Auto) (2-4) % Baso % (Auto) (0-2) % Neut # (Auto) (7433-0194) /uL Lymph # (Auto) (3754-5321) /uL Foster # (Auto) (0-900) /uL Eos # (Auto) (0-450) /uL Baso # (Auto) (0-100) /uL PT 13.8 H (10.1-12.7) SECONDS INR 1.2 (0.9-1.3) APTT 39 H D (26.4-36.2) SECONDS Sodium (137-145) mmol/L Potassium (3.4-5.1) mmol/L Chloride (98-107) mmol/L Carbon Dioxide (22-32) mmol/L BUN (9-20) mg/dL Creatinine (0.66-1.25) mg/dL Estimated GFR (>60) mL/min BUN/Creatinine Ratio (6-22) Glucose (80-110) mg/dL Calcium (8.4-10.2) mg/dL Total Bilirubin (0.2-1.3) mg/dL AST (17-59) IU/L ALT (<50) IU/L Alkaline Phosphatase (38-126) U/L Total Creatine Kinase (55-170) U/L CK-MB (CK-2) (<2.37) ng/mL CK-MB (CK-2) Rel Index (1.5-5.0) % Troponin I (0.01-0.034) ng/mL Total Protein (6.3-8.2) g/dL Albumin (3.5-5.0) g/dL Globulin (1.7-4.1) g/dL Albumin/Globulin Ratio (1.0-2.8) SARS-CoV-2 (PCR) (Negative) Imaging Data CT scan - head: Radiologist's Impression: 1. No acute intracranial abnormality. ? 2. Mild cerebral volume loss and chronic white matter small vessel ischemic changes. ? 3. Left supraorbital soft tissue swelling with a subcutaneous hematoma in the left forehead region.? No discrete fractures identified. ? 4. Mild sinus mucosal thickening bilaterally with small bilateral air-fluid levels in the maxillary sinuses.? Findings likely reflect acute sinusitis given the bilateral distribution and less likely sequelae of trauma.? ? Chest x-ray: Radiologist's Impression: No acute cardiopulmonary disease. Facial bone CT: Radiologist's Impression: 1. No acute facial bone fracture identified. ? 2. Left supraorbital soft tissue swelling and subcutaneous hematoma. ? 3. Small air-fluid levels within the bilateral maxillary sinuses likely reflect acute sinusitis and less likely sequelae of trauma given the absence of a discrete fracture as well as the bilateral distribution. Brain MRI: Radiologist's Impression: 1. Image quality degraded by patient motion artifact. ? 2. No acute intracranial disease process. ? 3. No areas of acute or chronic infarction. ? 4. No intracranial hemorrhage. ? 5. Mild, diffuse cerebral volume loss. ? 6. Mild periventricular and subcortical chronic microvascular ischemic change. ? 7. Bilateral maxillary sinusitis.? ECG Data Attestation: I personally reviewed and interpreted this ECG as follows: (AFib rate 75 beats per minute. Incomplete RBBB. No acute ST T wave changes.) Discharge Plan Departure Patient Disposition: Home Clinical Impression: Chronic maxillary sinusitis, Atrial fibrillation, Diplopia, Poor balance Instructions: DI for Sinusitis Activity Restrictions/Additional Instructions: Doxycycline 2 times daily. The prescription has been sent to the [facility] in [place]. There is no evidence stroke. You clearly have a weak muscle in the right eye, likely responsible for your double vision. Talk to your doctor about seeing an eyewear consultant. Consider following up with your neurologist after you see the eye doctor. Return here as needed. Prescriptions: New doxycycline hyclate 100 mg capsule 100 mg PO BID 10 Days Qty: 20 0RF No Action hydrocodone-acetaminophen 5-325 mg tablet 1 tab PO Q4-6H PRN (Reason: pain) Qty: 10 0RF Lyrica 150 mg capsule 100 mg PO BID 0RF duloxetine [Cymbalta] 30 mg capsule,delayed release(DR/EC) 20 mg PO DAILY 0RF Xarelto 20 mg tablet 20 mg PO DAILY 0RF losartan 50 mg tablet 50 mg PO DAILY 0RF atorvastatin [Lipitor] 20 mg tablet 20 mg PO DAILY 0RF alpha lipoic acid 300 mg capsule 300 mg PO DAILY 0RF cholecalciferol (vitamin D3) 2,000 unit capsule 2,000 unit PO DAILY 0RF Referrals: Fausto Hoskins MD [Primary Care Provider] -
[2021-10-07] MEDS: DOXYCYCLINE HYCLATE 100 MG TABLET PO (18:15)
== END 2021-10-07 18:30 | disposition home or self-care (01) ==
PROVIDERS: Emergency Provider Emergency Medicine; Family Provider Family Medicine; PCP Family Medicine
DX: J32.0 Chronic maxillary sinusitis (principal); I48.91 Unspecified atrial fibrillation; H53.2 Diplopia; R26.81 Unsteadiness on feet; Z88.1 Allergy status to other antibiotic agents; Z88.0 Allergy status to penicillin; Z79.01 Long term (current) use of anticoagulants; Z87.891 Personal history of nicotine dependence; Z20.822 Contact with and (suspected) exposure to COVID-19
CPT/HCPCS: 70450; 70486; 70551; 71045; 80053; 82550; 82553; 84484; 85025; 85610; 85730; 87635; 93005; 99284; 99285; C9803

== ENCOUNTER → 2022-01-13 13:06 | Outpatient (CLI) | payer MEDICARE, OTHER, SELFPAY ==
[2020-12-28 16:35] VITALS: BMI 37.9
--- NOTE | 2022-01-13 13:09 | DI.RAD.S_ITS ---
PROCEDURE: XR KNEE LT 3V INDICATIONS: LEFT KNEE PAIN TECHNIQUE: 3 views of the knee were acquired. COMPARISON: [facility], , XR KNEE LT 3V, 12/28/2020, 13:46. FINDINGS: Bones: No fractures or dislocations. 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 Slight lateral subluxation of patella is noted. No suspicious bony lesions. Soft tissues: Small to moderate suprapatellar joint effusion. No suspicious soft tissue calcifications. 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 Small to moderate suprapatellar joint effusion. No fracture or dislocation. Dictated by: Jomar Menjivar M.D. on 01/13/2022 at 16:25 Approved by: Jomar Menjivar M.D. on 01/13/2022 at 16:25
== END ==
PROVIDERS: Family Provider Family Medicine; PCP Family Medicine; Referring Provider Physical Medicine & Rehabilitation; Visit Provider Physical Medicine & Rehabilitation
DX: M17.12 Unilateral primary osteoarthritis, left knee (principal); M25.462 Effusion, left knee; M25.562 Pain in left knee
CPT/HCPCS: 73562

== ENCOUNTER 2022-05-29 09:42 | Inpatient (IN) | payer MEDICARE, OTHER, SELFPAY ==
[2020-12-28 16:35] VITALS: BMI 37.9
[2022-05-29] VITALS (26 sets, daily range): BP systolic 132–199; BP diastolic 90–148; PULSE 93–126; RESP 16–34; TEMP 36.2–37.4; O2SAT 93–97; BMI 32.6
--- NOTE | 2022-05-29 10:09 | ED_ITS ---
HPI - General Adult General Chief complaint: Weakness Stated complaint: Head ache, achey, lethargic, confusion per Time Seen by Provider: 05/29/22 09:56 Source: patient and family () Mode of arrival: Ambulatory Limitations: no limitations History of Present Illness HPI narrative: Patient is an 82-year-old male. History of atrial fibrillation. Is anticoagulated. Is here for evaluation with his for approximately 3 days of with the patient's states are ?cluster headaches ?they seem to come and go. When they are present they seem to be very distressing to the patient. Patient's also states that he has been very confused the past couple days. He has been tired and complaining of body aches. Is difficult for her to get him out of bed because of how tired that he is. At the time my evaluation he was not having headache. No vision changes. No sore throat. No chest pain. No shortness of breath. No palpitations. No abdominal pain. No nausea vomiting. No change in bowel habits or urinary habits. No rashes. He does have neuropathy in his lower extremities but this is not new. No other new neurologic changes. Has been no balance issues. Patient's states that he has had these symptoms in the past and it is always turned out to be an infection. No intervention prior to arrival. Related Data Home Medications Medication Instructions Recorded Confirmed alpha lipoic acid 300 mg capsule 300 mg PO DAILY 03/26/19 03/16/22 atorvastatin 20 mg tablet (Lipitor) 20 mg PO DAILY 03/26/19 03/16/22 losartan 50 mg tablet 50 mg PO DAILY 03/26/19 03/16/22 pregabalin 150 mg capsule (Lyrica) 100 mg PO BID 03/26/19 03/16/22 rivaroxaban 20 mg tablet (Xarelto) 20 mg PO DAILY 03/26/19 03/16/22 duloxetine 20 mg capsule,delayed cap PO 01/16/22 03/16/22 release vitamin B complex (B 1 tab PO DAILY 01/16/22 03/16/22 Complex-Vitamin B12 tablet) metoprolol succinate 50 mg 50 mg PO BID 02/22/22 03/16/22 tablet,extended release 24 hr Allergies Allergy/AdvReac Type Severity Reaction Status Date / Time penicillin G [PENICILLIN G] Allergy Severe SYNCOPAL Verified 03/16/22 14:01 EPISODE A CHILD clindamycin [CLINDAMYCIN] Allergy Intermediate RASH Verified 03/16/22 14:01 Review of Systems Review of Systems ROS Unobtainable: Unobtainable due to mental condition Patient History Medical History Atrial fibrillation Gait instability Hyperlipidemia Hypertension Left knee DJD Peripheral neuropathy Surgical History H/O vasectomy Hx of circumcision Hx of shoulder surgery Family History Father Cancer Social History household members: spouse Smoking Status: Former smoker alcohol intake: never Smoking Status: Former smoker alcohol intake frequency: holidays/special occasions only Substance Use Type: does not use Exam Initial Vital Signs Initial Vital Signs: Vital Signs Pulse Rate 122 H 05/29/22 09:48 Respiratory Rate 29 H 05/29/22 09:48 Const General: cooperative, comfortable, well developed and No ill appearing HENMT Head: normal to inspection and normocephalic Face and sinus: normal facial exam Eyes Pupils: PERRL EOM: EOM intact bilaterally Chest Chest: No crepitus and No tenderness Resp Effort & Inspection: normal respiratory effort Auscultation: clear to auscultation bilaterally Cardio Rate: tachycardic Rhythm: abnormal rhythm irregularly irregular GI Inspection: normal to inspection Palpation: soft and No tender Skin General: no rashes or lesions noted Lesions: no lesions Neuro General: patient alert, patient awake, patient oriented x3 and moves all extremities Cranial Nerves: CN's II-XI intact bilaterally Speech: speech normal Motor: movement abnormality noted Sensory Exam: no sensory deficits noted Extrem General: normal to inspection and capillary refill normal Psych Appearance: grossly normal and well kempt Scores GCS Boron coma scale eye opening: Spontaneous Boron coma scale verbal response: Confused Meng coma scale motor response: Obey commands Boron coma scale total score: 14 Course Orders Ordered: ED Orders 05/29/22 09:52 EKG-12 Lead Routine 05/29/22 10:12 CT head/brain wo con Stat XR chest 1V Stat 05/29/22 10:37 Ammonia (NH3) Stat COVID19 -Nasal RAPID/Pre-Proc Stat Complete Blood Count AUTO DIFF Stat Comprehensive Metabolic Panel Stat Ethanol (ETOH) Stat Lactate (Lactic Acid) Stat Lipase Stat Magnesium Stat NT-proBNP (BNP-Adult 18+) Stat Partial Thromboplastin Time Stat Procalcitonin Stat Prothrombin Time INR Stat Troponin & CK Cardiac Panel Stat 05/29/22 11:05 Urine Culture Stat Urine Drug Screen, Rapid Stat 05/29/22 11:24 Urinalysis and Microscopic Stat 05/29/22 12:21 Blood Culture Stat Sodium Chloride (Normal Saline 0.9%) 1,000 mls @ 125 mls/hr IV CONT NANCY Last Infusion: 05/29/22 13:47 Dose: 0 mls/hr Documented By: Admin: 05/29/22 11:30 Dose: 125 mls/hr Documented By: BRADLY Vital Signs Vital signs: Vital Signs - 8 hr 05/29/22 10:09 05/29/22 09:48 05/29/22 09:50 Temperature 98.5 F Pulse Rate 123 H 122 H 119 H Respiratory Rate 16 29 H 25 H Blood Pressure 194/109 H Pulse Oximetry 96 95 Oxygen Delivery Method Room Air 05/29/22 09:50 05/29/22 10:00 05/29/22 10:28 Temperature Pulse Rate 124 H Respiratory Rate 28 H Blood Pressure 194/109 H 184/135 H Pulse Oximetry 95 Oxygen Delivery Method 05/29/22 10:28 05/29/22 10:30 05/29/22 10:30 Temperature Pulse Rate 114 H 102 H Respiratory Rate 27 H Blood Pressure 194/143 H Pulse Oximetry 96 97 Oxygen Delivery Method 05/29/22 11:00 05/29/22 11:00 05/29/22 11:07 Temperature Pulse Rate 109 H Respiratory Rate 27 H Blood Pressure 191/148 H 193/133 H Pulse Oximetry 96 Oxygen Delivery Method 05/29/22 11:07 05/29/22 11:30 05/29/22 11:31 Temperature Pulse Rate 109 H 110 H 112 H Respiratory Rate 31 H 28 H 30 H Blood Pressure Pulse Oximetry 93 96 95 Oxygen Delivery Method Room Air 05/29/22 11:31 05/29/22 12:00 05/29/22 12:01 Temperature Pulse Rate 117 H 120 H Respiratory Rate 34 H 29 H Blood Pressure 178/111 H Pulse Oximetry 94 95 Oxygen Delivery Method 05/29/22 12:01 Temperature Pulse Rate Respiratory Rate Blood Pressure 199/139 H Pulse Oximetry Oxygen Delivery Method Medical Decision Making Lab Data Result diagrams: 05/29/22 10:37 05/29/22 10:37 Labs: Lab Results 05/29/22 05/29/22 05/29/22 Range/Units 10:37 10:37 10:37 WBC 11.6 H (4.5-11.0) X10^3/uL RBC 4.59 (4.5-5.9) X10^6/uL Hgb 14.5 (13.5-17.5) g/dL Hct 41.7 (41-53) % MCV 90.9 (80-100) fL MCH 31.6 (26-34) PG MCHC 34.8 (30-36) % RDW 13.2 (11.6-14.8) % Plt Count 251 (150-400) X10^3/uL Neut % (Auto) 72.4 (50-75) % Lymph % (Auto) 11.9 L (25-40) % Edgar % (Auto) 12.9 (3-14) % Eos % (Auto) 2.3 (2-4) % Baso % (Auto) 0.5 (0-2) % Neut # (Auto) 8400 H (7510-4897) /uL Lymph # (Auto) 1400 (5284-0379) /uL Edgar # (Auto) 1500 H (0-900) /uL Eos # (Auto) 300 (0-450) /uL Baso # (Auto) 100 (0-100) /uL PT 23.3 H (10.1-12.7) SECONDS INR 2.0 H (0.9-1.3) APTT 41 H (26-36) SECONDS Sodium 138 (137-145) mmol/L Potassium 3.7 (3.4-5.1) mmol/L Chloride 98 (98-107) mmol/L Carbon Dioxide 30 (22-32) mmol/L BUN 21 H (9-20) mg/dL Creatinine 0.83 (0.66-1.25) mg/dL Estimated GFR > 60 (>60) mL/min BUN/Creatinine Ratio 25.3 H (6-22) Glucose 142 H (80-110) mg/dL Lactate (0.7-2.1) mmol/L Calcium 9.0 (8.4-10.2) mg/dL Magnesium 1.8 (1.6-2.3) mg/dL Total Bilirubin 1.8 H (0.2-1.3) mg/dL AST 20 (17-59) IU/L ALT 14 (<50) IU/L Alkaline Phosphatase 125 (38-126) U/L Ammonia (9-30) umol/L Total Creatine Kinase 35 L (55-170) U/L CK-MB (CK-2) TNP CK-MB (CK-2) Rel Index TNP Troponin I < 0.012 (0.01-0.034) ng/mL NT-Pro-B Natriuret Pep 2290 H (<450) pg/mL Total Protein 8.0 (6.3-8.2) g/dL Albumin 4.1 (3.5-5.0) g/dL Globulin 3.9 (1.7-4.1) g/dL Albumin/Globulin Ratio 1.1 (1.0-2.8) Lipase 35 (23-300) U/L Procalcitonin 0.11 (<0.5) ng/mL Urine Color Urine Appearance Urine pH (4.5-8.0) Ur Specific Braham (1.000-1.035) Urine Protein (Negative) Urine Glucose (UA) (Negative) g/dL Urine Ketones (NEGATIVE) Urine Occult Blood (Negative) Urine Nitrate (Negative) Urine Bilirubin (NEGATIVE) Urine Urobilinogen (0.2) E.U./dL Ur Leukocyte Esterase (NEGATIVE) Urine RBC (0-5/HPF) Urine WBC (0-5/HPF) Amorphous Sediment Urine Bacteria (None) Ur Culture Indicated? U Opiates 300ng/mL cut (Negative) Ur Oxycodone Screen (Negative) Urine Methadone Screen (Negative) Ur Barbiturates Screen (Negative) U Tricyclic Antidepress (Negative) Ur Phencyclidine Scrn (Negative) Ur Amphetamines Screen (Negative) U Methamphetamines Scrn (Negative) Ur MDMA Scrn (Ecstasy) (Negative) U Benzodiazepines Scrn (Negative) Urine Cocaine Screen (Negative) U Marijuana (THC) Screen (Negative) Ethyl Alcohol < 10 ( - 10) mg/dL SARS-CoV-2 (PCR) (Negative) 05/29/22 05/29/22 05/29/22 Range/Units 10:37 10:37 10:37 WBC (4.5-11.0) X10^3/uL RBC (4.5-5.9) X10^6/uL Hgb (13.5-17.5) g/dL Hct (41-53) % MCV (80-100) fL MCH (26-34) PG MCHC (30-36) % RDW (11.6-14.8) % Plt Count (150-400) X10^3/uL Neut % (Auto) (50-75) % Lymph % (Auto) (25-40) % Edgar % (Auto) (3-14) % Eos % (Auto) (2-4) % Baso % (Auto) (0-2) % Neut # (Auto) (5420-2168) /uL Lymph # (Auto) (0714-2350) /uL Edgar # (Auto) (0-900) /uL Eos # (Auto) (0-450) /uL Baso # (Auto) (0-100) /uL PT (10.1-12.7) SECONDS INR (0.9-1.3) APTT (26-36) SECONDS Sodium (137-145) mmol/L Potassium (3.4-5.1) mmol/L Chloride (98-107) mmol/L Carbon Dioxide (22-32) mmol/L BUN (9-20) mg/dL Creatinine (0.66-1.25) mg/dL Estimated GFR (>60) mL/min BUN/Creatinine Ratio (6-22) Glucose (80-110) mg/dL Lactate 1.5 (0.7-2.1) mmol/L Calcium (8.4-10.2) mg/dL Magnesium (1.6-2.3) mg/dL Total Bilirubin (0.2-1.3) mg/dL AST (17-59) IU/L ALT (<50) IU/L Alkaline Phosphatase (38-126) U/L Ammonia < 9 L (9-30) umol/L Total Creatine Kinase (55-170) U/L CK-MB (CK-2) CK-MB (CK-2) Rel Index Troponin I (0.01-0.034) ng/mL NT-Pro-B Natriuret Pep (<450) pg/mL Total Protein (6.3-8.2) g/dL Albumin (3.5-5.0) g/dL Globulin (1.7-4.1) g/dL Albumin/Globulin Ratio (1.0-2.8) Lipase (23-300) U/L Procalcitonin (<0.5) ng/mL Urine Color Urine Appearance Urine pH (4.5-8.0) Ur Specific Braham (1.000-1.035) Urine Protein (Negative) Urine Glucose (UA) (Negative) g/dL Urine Ketones (NEGATIVE) Urine Occult Blood (Negative) Urine Nitrate (Negative) Urine Bilirubin (NEGATIVE) Urine Urobilinogen (0.2) E.U./dL Ur Leukocyte Esterase (NEGATIVE) Urine RBC (0-5/HPF) Urine WBC (0-5/HPF) Amorphous Sediment Urine Bacteria (None) Ur Culture Indicated? U Opiates 300ng/mL cut (Negative) Ur Oxycodone Screen (Negative) Urine Methadone Screen (Negative) Ur Barbiturates Screen (Negative) U Tricyclic Antidepress (Negative) Ur Phencyclidine Scrn (Negative) Ur Amphetamines Screen (Negative) U Methamphetamines Scrn (Negative) Ur MDMA Scrn (Ecstasy) (Negative) U Benzodiazepines Scrn (Negative) Urine Cocaine Screen (Negative) U Marijuana (THC) Screen (Negative) Ethyl Alcohol ( - 10) mg/dL SARS-CoV-2 (PCR) Negative (Negative) 05/29/22 05/29/22 Range/Units 11:05 11:24 WBC (4.5-11.0) X10^3/uL RBC (4.5-5.9) X10^6/uL Hgb (13.5-17.5) g/dL Hct (41-53) % MCV (80-100) fL MCH (26-34) PG MCHC (30-36) % RDW (11.6-14.8) % Plt Count (150-400) X10^3/uL Neut % (Auto) (50-75) % Lymph % (Auto) (25-40) % Edgar % (Auto) (3-14) % Eos % (Auto) (2-4) % Baso % (Auto) (0-2) % Neut # (Auto) (4903-8871) /uL Lymph # (Auto) (7322-2064) /uL Edgar # (Auto) (0-900) /uL Eos # (Auto) (0-450) /uL Baso # (Auto) (0-100) /uL PT (10.1-12.7) SECONDS INR (0.9-1.3) APTT (26-36) SECONDS Sodium (137-145) mmol/L Potassium (3.4-5.1) mmol/L Chloride (98-107) mmol/L Carbon Dioxide (22-32) mmol/L BUN (9-20) mg/dL Creatinine (0.66-1.25) mg/dL Estimated GFR (>60) mL/min BUN/Creatinine Ratio (6-22) Glucose (80-110) mg/dL Lactate (0.7-2.1) mmol/L Calcium (8.4-10.2) mg/dL Magnesium (1.6-2.3) mg/dL Total Bilirubin (0.2-1.3) mg/dL AST (17-59) IU/L ALT (<50) IU/L Alkaline Phosphatase (38-126) U/L Ammonia (9-30) umol/L Total Creatine Kinase (55-170) U/L CK-MB (CK-2) CK-MB (CK-2) Rel Index Troponin I (0.01-0.034) ng/mL NT-Pro-B Natriuret Pep (<450) pg/mL Total Protein (6.3-8.2) g/dL Albumin (3.5-5.0) g/dL Globulin (1.7-4.1) g/dL Albumin/Globulin Ratio (1.0-2.8) Lipase (23-300) U/L Procalcitonin (<0.5) ng/mL Urine Color Yellow Urine Appearance Clear Urine pH 6.0 (4.5-8.0) Ur Specific Braham 1.015 (1.000-1.035) Urine Protein 1+ H (Negative) Urine Glucose (UA) Negative (Negative) g/dL Urine Ketones Trace H (NEGATIVE) Urine Occult Blood Trace-intact (Negative) Urine Nitrate Negative (Negative) Urine Bilirubin Negative (NEGATIVE) Urine Urobilinogen 1.0 (0.2) E.U./dL Ur Leukocyte Esterase Negative (NEGATIVE) Urine RBC 1-5/hpf D (0-5/HPF) Urine WBC 0-1/hpf (0-5/HPF) Amorphous Sediment 2+ Urine Bacteria Occasional (0-1) (None) Ur Culture Indicated? Cult not indicated U Opiates 300ng/mL cut Positive H (Negative) Ur Oxycodone Screen Negative (Negative) Urine Methadone Screen Negative (Negative) Ur Barbiturates Screen Negative (Negative) U Tricyclic Antidepress Negative (Negative) Ur Phencyclidine Scrn Negative (Negative) Ur Amphetamines Screen Negative (Negative) U Methamphetamines Scrn Negative (Negative) Ur MDMA Scrn (Ecstasy) Negative (Negative) U Benzodiazepines Scrn Negative (Negative) Urine Cocaine Screen Negative (Negative) U Marijuana (THC) Screen Negative (Negative) Ethyl Alcohol ( - 10) mg/dL SARS-CoV-2 (PCR) (Negative) Imaging Data CT scan - head: Radiologist's Impression: [address] [address] [address] Scan Report Signed Patient: Bennett Covington MR#: [id number] : 1940 Acct:[id number] Age/Sex: 82 / M Date of Service: 05/29/22 Loc: ED Accession Number: [id number] ?? Procedure: CT head/brain wo con Ordering Provider: Maged Parekh D.O. PROCEDURE:? CT HEAD/BRAIN WO CON ? INDICATIONS:? confusion ? TECHNIQUE:? Noncontrast 4.5 mm thick angled axial sections acquired from the foramen magnum to the vertex, with coronal and sagittal reformats.? For radiation dose reduction, the following was used:? automated exposure control, adjustment of mA and/or kV according to patient size.? ? COMPARISON:? [facility], MR, MR HEAD/BRAIN WO CON, 10/07/2021, 15:32.? [facility], CT, CT HEAD/BRAIN WO CON, 10/07/2021, 13:25. ? FINDINGS:? Image quality:? Excellent.? ? CSF spaces:? Basal cisterns are patent.? No extra-axial fluid collections.? The ventricles are symmetric in size and shape.? ? Brain:? No intracranial bleeds or masses.? There is cerebral volume loss for age, with resultant ventricular and sulcal prominence.? There are periventricular and deep white matter chronic small vessel ischemic changes.? There is intracranial internal carotid artery atherosclerosis.? ? Skull and face:? Calvarium and visualized facial bones appear intact, without suspicious lesions.? ? Sinuses:? Visualized sinuses and mastoids are clear.? ? IMPRESSION:? ? 1. No acute intracranial abnormalities. ? 2. Cerebral volume loss and chronic microvascular ischemic changes. ? ? ? Dictated by: Francisco Plunkett M.D. on 05/29/2022 at 10:27 ? ? Approved by: Francisco Plunkett M.D. on 05/29/2022 at 10:28? Chest x-ray: Radiologist's Impression: [address] [address] XRay Report Signed Patient: Bennett Covington MR#: [id number] : 1940 Acct:[id number] Age/Sex: 82 / M Date of Service: 05/29/22 Loc: ED Accession Number: [id number] ?? Procedure: XR chest 1V Ordering Provider: Maged Parekh D.O. PROCEDURE:? XR CHEST 1V ? INDICATIONS:? eval for PNA ? TECHNIQUE:? One view of the chest was acquired.? ? COMPARISON:? [facility], STEPH, XR CHEST 1V, 10/07/2021, 13:44. ? FINDINGS:? ? Surgical changes and devices:? Right shoulder arthroplasty.? Overlying monitoring wires. ? Lungs and pleura:? Chronic asymmetric right hemidiaphragm elevation.? Mild bilateral upper lobe interstitial thickening.? No dense consolidation, effusion, or pneumothorax. ? Mediastinum:? Stable cardiomegaly and tortuous, ectatic thoracic aorta.? Minor central venous congestion of versus change in technique. ? Bones and chest wall:? No suspicious bony lesions.? Overlying soft tissues appear unremarkable.? Degenerative endplate spurs in the thoracic spine.? ? IMPRESSION:? ? 1. No consolidations to suggest pneumonia. ? 2. Possible slight vascular and interstitial congestion. ? 3. Stable cardiomegaly.? ? ? Dictated by: Christiana Hadley M.D. on 05/29/2022 at 10:40 ? ? Approved by: Christiana Hadley M.D. on 05/29/2022 at 10:42?? ECG Data Attestation: I personally reviewed and interpreted this ECG as follows: Interpretation: Atrial fibrillation Ventricular rate 113 Normal axis Incomplete right bundle branch block No ST T wave changes MDM Narrative Medical decision making narrative: Patient is in AFib however his heart rate has been anywhere from 90s to 120s. He is also hypertensive. Initially when he arrived he knew where he was but was somewhat confused about circumstances however upon re-evaluation he was very confused about where he was and who he was and why he was here. I do not have a specific source of infection. His chest x-ray is unremarkable. Urine is unremarkable. His abdomen is soft. His labs are relatively unremarkable. He is no skin changes make me concern for cellulitis. I have low suspicion for meningitis as he has no neck pain no fevers. No antibiotics were administered. His head CT was unremarkable. He is no recent change in any medications. Given his presentation and confusion and hallucinations patient does require admission to the hospital for further evaluation and treatment. I did discuss this with the patient's who expressed understanding and agreement. Discussed the case with Dr. Art who will admit for further evaluation. Discharge Plan Departure Patient Disposition: Admitted As Inpatient Clinical Impression: Confusion, Hypertension, Atrial fibrillation, Hallucination, visual, Headache Admit Date/Time: 05/29/22 12:19 Admit Provider: Jorje Art
--- NOTE | 2022-05-29 10:12 | DI.RAD.S_ITS ---
PROCEDURE: XR CHEST 1V INDICATIONS: eval for PNA TECHNIQUE: One view of the chest was acquired. COMPARISON: [facility], CR, XR CHEST 1V, 10/07/2021, 13:44. FINDINGS: Surgical changes and devices: Right shoulder arthroplasty. Overlying monitoring wires. Lungs and pleura: Chronic asymmetric right hemidiaphragm elevation. Mild bilateral upper lobe interstitial thickening. No dense consolidation, effusion, or pneumothorax. Mediastinum: Stable cardiomegaly and tortuous, ectatic thoracic aorta. Minor central venous congestion of versus change in technique. Bones and chest wall: No suspicious bony lesions. Overlying soft tissues appear unremarkable. Degenerative endplate spurs in the thoracic spine. IMPRESSION: 1. No consolidations to suggest pneumonia. 2. Possible slight vascular and interstitial congestion. 3. Stable cardiomegaly. Dictated by: Christiana Hadley M.D. on 05/29/2022 at 10:40 Approved by: Christiana Hadley M.D. on 05/29/2022 at 10:42
--- NOTE | 2022-05-29 10:12 | DI.CT.S_ITS ---
PROCEDURE: CT HEAD/BRAIN WO CON INDICATIONS: confusion TECHNIQUE: Noncontrast 4.5 mm thick angled axial sections acquired from the foramen magnum to the vertex, with coronal and sagittal reformats. For radiation dose reduction, the following was used: automated exposure control, adjustment of mA and/or kV according to patient size. COMPARISON: [facility], MR, MR HEAD/BRAIN WO CON, 10/07/2021, 15:32. [facility], CT, CT HEAD/BRAIN WO CON, 10/07/2021, 13:25. FINDINGS: Image quality: Excellent. CSF spaces: Basal cisterns are patent. No extra-axial fluid collections. The ventricles are symmetric in size and shape. Brain: No intracranial bleeds or masses. There is cerebral volume loss for age, with resultant ventricular and sulcal prominence. There are periventricular and deep white matter chronic small vessel ischemic changes. There is intracranial internal carotid artery atherosclerosis. Skull and face: Calvarium and visualized facial bones appear intact, without suspicious lesions. Sinuses: Visualized sinuses and mastoids are clear. IMPRESSION: 1. No acute intracranial abnormalities. 2. Cerebral volume loss and chronic microvascular ischemic changes. Dictated by: Francisco Plunkett M.D. on 05/29/2022 at 10:27 Approved by: Francisco Plunkett M.D. on 05/29/2022 at 10:28
[2022-05-29 11:11] LABS: Add Manual Diff / Slide Review NO; Basophils Absolute Auto 100 /uL (0-100); Basophils Percent Auto 0.5 % (0-2); Eosinophils Absolute Auto 300 /uL (0-450); Eosinophils Percent Auto 2.3 % (2-4); Hematocrit 41.7 % (41-53); Hemoglobin 14.5 g/dL (13.5-17.5); Lymphocytes Absolute Auto 1400 /uL (1100-4500); Lymphocytes Percent Auto 11.9 % (25-40); Mean Corpuscular HGB Conc 34.8 % (30-36); Mean Corpuscular Hemoglobin 31.6 PG (26-34); Mean Corpuscular Volume 90.9 fL (80-100); Monocytes Absolute Auto 1500 /uL (0-900); Monocytes Percent Auto 12.9 % (3-14); Neutrophils Absolute Auto 8400 /uL (1500-7000); Neutrophils Percent Auto 72.4 % (50-75); Platelet Count 251 X10^3/uL (150-400); Red Blood Cell Count 4.59 X10^6/uL (4.5-5.9); Red Cell Distribution Width 13.2 % (11.6-14.8); White Blood Cell Count 11.6 X10^3/uL (4.5-11.0)
[2022-05-29 11:13] LABS: Prothrombin Time 23.3 SECONDS (10.1-12.7)
[2022-05-29 11:16] LABS: PTT Partial Thromboplastin Tim 41 SECONDS (26-36)
[2022-05-29 11:18] LABS: Lactate (Lactic Acid) 1.5 mmol/L (0.7-2.1)
[2022-05-29 11:20] LABS: Alanine Aminotransferase 14 IU/L (<50); Albumin 4.1 g/dL (3.5-5.0); Albumin Globulin Ratio 1.1 (1.0-2.8); Alkaline Phosphatase 125 U/L (38-126); Aspartate Aminotransferase 20 IU/L (17-59); BUN Creatinine Ratio 25.3 (6-22); Bilirubin Total 1.8 mg/dL (0.2-1.3); Blood Urea Nitrogen 21 mg/dL (9-20); Carbon Dioxide 30 mmol/L (22-32); Chloride 98 mmol/L (98-107); Creatine Kinase 35 U/L (55-170); Estimated Glomerular Filt Rate > 60 mL/min (>60); Ethanol (ETOH) < 10 mg/dL; Globulin 3.9 g/dL (1.7-4.1); Glucose 142 mg/dL (80-110); HEMOLYSIS < 15 (0-50); Lipase 35 U/L (23-300); Magnesium 1.8 mg/dL (1.6-2.3); Potassium 3.7 mmol/L (3.4-5.1); Sodium 138 mmol/L (137-145)
[2022-05-29 11:21] LABS: Ammonia (NH3) < 9 umol/L (9-30)
[2022-05-29 11:23] LABS: COVID19 -Nasal RAPID Negative (Negative)
[2022-05-29 11:28] LABS: Appearance Urine UA CLEAR; Bilirubin Urine UA NEGATIVE (NEGATIVE); Color Urine UA YELLOW; Glucose Urine UA NEGATIVE (Negative); Ketones Urine UA TRACE (NEGATIVE); Leukocyte Esterase Urine UA NEGATIVE (NEGATIVE); Nitrite Urine UA NEGATIVE (Negative); Occult Blood Urine UA TRACE-INTACT (Negative); Protein Urine UA 1+ (Negative); Specific Gravity Urine UA 1.015 (1.000-1.035)
[2022-05-29] MEDS: SODIUM CHLORIDE 0.9% 1,000 ML 125 ML IV (11:30)
[2022-05-29 11:32] LABS: NT-proBNP (BNP-Adult 18+) 2290 pg/mL (<450); Troponin I < 0.012 ng/mL (0.01-0.034)
[2022-05-29 11:36] LABS: Procalcitonin 0.11 ng/mL (<0.5)
--- NOTE | 2022-05-29 11:51 | PC.NURSE ---
at bedside. patient able to tell me his name, date of , age, his wifes name. he told me it was 2022 and asked if it was July. I asked patient if he knew where he was he stated well thats tricky because its a lot of different places. Dr. Parekh aware.
[2022-05-29 12:17] LABS: RBC Urine 1-5/HPF (0-5/HPF); WBC Urine 0-1/HPF (0-5/HPF)
[2022-05-29 12:18] LABS: Amorphous Sediment Urine 2+; Bacteria Urine Occasional (0-1); Culture Indicated Urine Cult Not Indicated
[2022-05-29 13:19] LABS: UR Morphine/Opiate cutoff 300 Positive (Negative); Ur Creatinine Normal (Normal); Ur Specific Gravity Normal (Normal); Urine Amphetamines Negative (Negative); Urine Barbiturates Negative (Negative); Urine Benzodiazepines Negative (Negative); Urine Cocaine Negative (Negative); Urine MDMA Negative (Negative); Urine Methadone Negative (Negative); Urine Methamphetamines Negative (Negative); Urine Oxycodone Negative (Negative); Urine Phencyclidine Negative (Negative); Urine Tetrahydrocannabinol Negative (Negative); Urine Tricyclic Antidepressant Negative (Negative); Urine pH Normal (Normal)
--- NOTE | 2022-05-29 14:41 | DI.MRI.S_ITS ---
PROCEDURE: MR HEAD/BRAIN WO CON INDICATIONS: confusion TECHNIQUE: Non-contrast axial T1 spin echo, axial T2 fast spin echo, sagittal and axial FLAIR, coronal T2 fast spin echo, axial gradient echo, axial diffusion and ADC through the brain. COMPARISON: [facility], CT, CT HEAD/BRAIN WO CON, 05/29/2022, 10:25. [facility], MR, MR HEAD/BRAIN WO CON, 10/07/2021, 15:32. FINDINGS: Image quality: This evaluation is limited, secondary to the patient's inability to fully cooperate with the examination. Furthermore, this patient is limited by patient positioning and inability to use the standard head coil. This examination is also limited by involuntary motion artifact. CSF spaces: Ventricles appear symmetric in size and shape. Basal cisterns are patent. No extra-axial fluid collections. Brain: No intracranial bleeds or mass effects. There is cerebral volume loss for age. There are periventricular and deep white matter chronic small vessel ischemic changes. Brainstem appears normal. Diffusion-weighted images show no acute ischemic insults. No chronic ischemic insults. Normal intravascular flow voids are present. Skull and face: Calvarial bone marrow is normal in signal. Orbits are normal. Sinuses: Sinuses and mastoids are clear. IMPRESSION: Limited study demonstrating no findings of acute or subacute infarction. Dictated by: Panfilo Bocanegra M.D. on 05/29/2022 at 14:30 Approved by: Panfilo Bocanegra M.D. on 05/29/2022 at 14:32
[2022-05-29] MEDS: PHYTONADIONE (VIT K1) 5 MG TABLET PO (15:38)
[2022-05-29] MEDS: METOPROLOL ER 50 MG TABLET PO ×2 (15:38→20:15)
[2022-05-29] MEDS: DEXAMETHASONE 10 MG/ML VIAL IV ×2 (15:39→20:15)
[2022-05-29] MEDS: AMPICILLIN 2,000 MG in SODIUM CHLORIDE 0.9% 100 ML 200 MG IV (15:39)
[2022-05-29] MEDS: cefTRIAXone 2,000 MG in SODIUM CHLORIDE 0.9% 100 ML 200 MG IV (16:09)
[2022-05-29] MEDS: ACYCLOVIR 1,000 MG in DEXTROSE 5% IN WATER 250 ML 250 MG IV (16:21)
--- NOTE | 2022-05-29 17:32 | P.HP_ITS ---
History of Present Illness History of Present Illness Date Patient Seen: 05/29/22 Time Patient Seen: 16:00 Chief complaint: Head ache, achey, lethargic, confusion per Narrative: Mr. Covington is a 82M with PMH afib on xarelto, HTN, HL who presents to the hospital with headaches and confusion. He claims to have cluster headaches but per the this is a self diagnosis, and not told to him by a physician. He has not felt way since Sunday, 3 days ago, where he developed generalized bilateral headache. He was having mild neck pain. He became confused at the same time. He is having myalgias. No fevers/chills. No runny nose, tearing eye, or other autonomic symptoms. Headache not lateralized to one side. In the ED workup was done, vitals notable for afebrile, heart rate in 120s, blood pressure elevated in 180s-190s/100s-130s. Labs notable for WBC 11.6, hgb 14.5, plts 251, creatinine 0.83. INR 2.0. Bili 1.8. Trop negative. BNP 2290. Procal 0.11. EtOH negative. Lactate 1.5. Ammonia negative. COVID negative. Urinalysis negative. UDS positive for opiates which he take for osteoarthritis. CT head with no acute process. Chest xray with no acute process. Patient History Medical History Atrial fibrillation Gait instability Hyperlipidemia Hypertension Left knee DJD Peripheral neuropathy Surgical History H/O vasectomy Hx of circumcision Hx of shoulder surgery Family & Social History Family History Father Cancer Social History: household members spouse Prior Living Arrangements House Safety & Behavioral: Feels Safe in Current Yes Environment Been Physically Hurt or No Threatened By a Person Tobacco & Substance use: Smoking Status Former smoker alcohol intake never alcohol intake frequency holiday/special occasion Substance Use Type does not use Meds Home Medications and Allergies Home Medications Medication Instructions Recorded Confirmed Type alpha lipoic acid 300 mg capsule 300 mg PO DAILY 03/26/19 03/16/22 History atorvastatin 20 mg tablet (Lipitor) 20 mg PO DAILY 03/26/19 03/16/22 History losartan 50 mg tablet 50 mg PO DAILY 03/26/19 05/29/22 History pregabalin 150 mg capsule (Lyrica) 150 mg PO BID 03/26/19 05/29/22 History rivaroxaban 20 mg tablet (Xarelto) 20 mg PO DAILY 03/26/19 03/16/22 History duloxetine 20 mg capsule,delayed cap PO 01/16/22 03/16/22 History release vitamin B complex (B 1 tab PO DAILY 01/16/22 05/29/22 History Complex-Vitamin B12 tablet) metoprolol succinate 50 mg 50 mg PO BID 02/22/22 05/29/22 History tablet,extended release 24 hr acetaminophen 500 mg capsule 1,000 mg PO Q6H PRN Pain (Scale 05/29/22 05/29/22 History Score 4-6) Allergies Allergy/AdvReac Type Severity Reaction Status Date / Time clindamycin [CLINDAMYCIN] Allergy Intermediate RASH Verified 03/16/22 14:01 penicillin G [PENICILLIN G] Allergy Mild Rash Verified 05/29/22 16:24 Review of Systems Review of Systems Narrative: 14 systems reviewed and negative aside from what is noted in HPI Exam Vital Signs (past 8 hours): - 05/29/22 10:09 05/29/22 09:48 05/29/22 09:50 Temperature 98.5 F Pulse Rate 123 H 122 H 119 H Respiratory Rate 16 29 H 25 H Blood Pressure 194/109 H Pulse Oximetry 96 95 Oxygen Delivery Method Room Air Oxygen Flow Rate 05/29/22 09:50 05/29/22 10:00 05/29/22 10:28 Temperature Pulse Rate 124 H Respiratory Rate 28 H Blood Pressure 194/109 H 184/135 H Pulse Oximetry 95 Oxygen Delivery Method Oxygen Flow Rate 05/29/22 10:28 05/29/22 10:30 05/29/22 10:30 Temperature Pulse Rate 114 H 102 H Respiratory Rate 27 H Blood Pressure 194/143 H Pulse Oximetry 96 97 Oxygen Delivery Method Oxygen Flow Rate 05/29/22 11:00 05/29/22 11:00 05/29/22 11:07 Temperature Pulse Rate 109 H Respiratory Rate 27 H Blood Pressure 191/148 H 193/133 H Pulse Oximetry 96 Oxygen Delivery Method Oxygen Flow Rate 05/29/22 11:07 05/29/22 11:30 05/29/22 11:31 Temperature Pulse Rate 109 H 110 H 112 H Respiratory Rate 31 H 28 H 30 H Blood Pressure Pulse Oximetry 93 96 95 Oxygen Delivery Method Room Air Oxygen Flow Rate 05/29/22 11:31 05/29/22 12:00 05/29/22 12:01 Temperature Pulse Rate 117 H 120 H Respiratory Rate 34 H 29 H Blood Pressure 178/111 H Pulse Oximetry 94 95 Oxygen Delivery Method Oxygen Flow Rate 05/29/22 12:01 05/29/22 12:22 05/29/22 12:22 Temperature 99.3 F Pulse Rate 101 H Respiratory Rate Blood Pressure 199/139 H 162/110 H Pulse Oximetry 94 Oxygen Delivery Method Oxygen Flow Rate 05/29/22 12:30 05/29/22 13:00 05/29/22 13:30 Temperature Pulse Rate 105 H 126 H 102 H Respiratory Rate 24 24 Blood Pressure Pulse Oximetry 95 93 95 Oxygen Delivery Method Oxygen Flow Rate 05/29/22 13:42 05/29/22 13:42 05/29/22 14:00 Temperature Pulse Rate 93 H 110 H Respiratory Rate 25 H Blood Pressure 183/137 H Pulse Oximetry 95 95 Oxygen Delivery Method Oxygen Flow Rate 05/29/22 14:20 05/29/22 15:38 05/29/22 16:23 Temperature 97.2 F L Pulse Rate 96 H 97 H Respiratory Rate 17 Blood Pressure 167/117 H 167/117 H Pulse Oximetry 97 Oxygen Delivery Method Oxygen Flow Rate 0 Oxygen Delivery Method Room Air Oxygen Flow Rate 0 Narrative Exam Narrative: GEN: mild distress, confused HEENT: moist mucous membranes, PERRL NECK: trachea midline, no JVD PULM: clear bilaterally, no wheezes, rhonchi, rales CV: regular rate and rhythm, no murmurs ABD: soft, nontender, nondistended, no organomegaly EXT: warm and well perfused with no edema NEURO: awake, alert, confused, no focal deficits, mild neck pain when trying to touch chin to chest Objective Labs Result Diagrams: 05/29/22 10:37 05/29/22 10:37 Labs: Laboratory Results - last 24 hr 05/29/22 05/29/22 05/29/22 10:37 10:37 10:37 WBC 11.6 H RBC 4.59 Hgb 14.5 Hct 41.7 MCV 90.9 MCH 31.6 MCHC 34.8 RDW 13.2 Plt Count 251 Neut % (Auto) 72.4 Lymph % (Auto) 11.[address] [place] % (Auto) 12.9 Eos % (Auto) 2.3 Baso % (Auto) 0.5 Neut # (Auto) 8400 H Lymph # (Auto) 1400 [place] # (Auto) 1500 H Eos # (Auto) 300 Baso # (Auto) 100 PT 23.3 H INR 2.0 H APTT 41 H Sodium 138 Potassium 3.7 Chloride 98 Carbon Dioxide 30 BUN 21 H Creatinine 0.83 Estimated GFR > 60 BUN/Creatinine Ratio 25.3 H Glucose 142 H Lactate Calcium 9.0 Magnesium 1.8 Total Bilirubin 1.8 H AST 20 ALT 14 Alkaline Phosphatase 125 Ammonia Total Creatine Kinase 35 L CK-MB (CK-2) TNP CK-MB (CK-2) Rel Index TNP Troponin I < 0.012 NT-Pro-B Natriuret Pep 2290 H Total Protein 8.0 Albumin 4.1 Globulin 3.9 Albumin/Globulin Ratio 1.1 Lipase 35 Procalcitonin 0.11 Urine Color Urine Appearance Urine pH Ur Specific [place] Urine Protein Urine Glucose (UA) Urine Ketones Urine Occult Blood Urine Nitrate Urine Bilirubin Urine Urobilinogen Ur Leukocyte Esterase Urine RBC Urine WBC Amorphous Sediment Urine Bacteria Ur Culture Indicated? U Opiates 300ng/mL cut Ur Oxycodone Screen Urine Methadone Screen Ur Barbiturates Screen U Tricyclic Antidepress Ur Phencyclidine Scrn Ur Amphetamines Screen U Methamphetamines Scrn Ur MDMA Scrn (Ecstasy) U Benzodiazepines Scrn Urine Cocaine Screen U Marijuana (THC) Screen Ethyl Alcohol < 10 SARS-CoV-2 (PCR) 05/29/22 05/29/22 05/29/22 10:37 10:37 10:37 WBC RBC Hgb Hct MCV MCH MCHC RDW Plt Count Neut % (Auto) Lymph % (Auto) [place] % (Auto) Eos % (Auto) Baso % (Auto) Neut # (Auto) Lymph # (Auto) [place] # (Auto) Eos # (Auto) Baso # (Auto) PT INR APTT Sodium Potassium Chloride Carbon Dioxide BUN Creatinine Estimated GFR BUN/Creatinine Ratio Glucose Lactate 1.5 Calcium Magnesium Total Bilirubin AST ALT Alkaline Phosphatase Ammonia < 9 L Total Creatine Kinase CK-MB (CK-2) CK-MB (CK-2) Rel Index Troponin I NT-Pro-B Natriuret Pep Total Protein Albumin Globulin Albumin/Globulin Ratio Lipase Procalcitonin Urine Color Urine Appearance Urine pH Ur Specific [place] Urine Protein Urine Glucose (UA) Urine Ketones Urine Occult Blood Urine Nitrate Urine Bilirubin Urine Urobilinogen Ur Leukocyte Esterase Urine RBC Urine WBC Amorphous Sediment Urine Bacteria Ur Culture Indicated? U Opiates 300ng/mL cut Ur Oxycodone Screen Urine Methadone Screen Ur Barbiturates Screen U Tricyclic Antidepress Ur Phencyclidine Scrn Ur Amphetamines Screen U Methamphetamines Scrn Ur MDMA Scrn (Ecstasy) U Benzodiazepines Scrn Urine Cocaine Screen U Marijuana (THC) Screen Ethyl Alcohol SARS-CoV-2 (PCR) Negative 05/29/22 05/29/22 11:05 11:24 WBC RBC Hgb Hct MCV MCH MCHC RDW Plt Count Neut % (Auto) Lymph % (Auto) [place] % (Auto) Eos % (Auto) Baso % (Auto) Neut # (Auto) Lymph # (Auto) [place] # (Auto) Eos # (Auto) Baso # (Auto) PT INR APTT Sodium Potassium Chloride Carbon Dioxide BUN Creatinine Estimated GFR BUN/Creatinine Ratio Glucose Lactate Calcium Magnesium Total Bilirubin AST ALT Alkaline Phosphatase Ammonia Total Creatine Kinase CK-MB (CK-2) CK-MB (CK-2) Rel Index Troponin I NT-Pro-B Natriuret Pep Total Protein Albumin Globulin Albumin/Globulin Ratio Lipase Procalcitonin Urine Color Yellow Urine Appearance Clear Urine pH 6.0 Ur Specific [place] 1.015 Urine Protein 1+ H Urine Glucose (UA) Negative Urine Ketones Trace H Urine Occult Blood Trace-intact Urine Nitrate Negative Urine Bilirubin Negative Urine Urobilinogen 1.0 Ur Leukocyte Esterase Negative Urine RBC 1-5/hpf D Urine WBC 0-1/hpf Amorphous Sediment 2+ Urine Bacteria Occasional (0-1) Ur Culture Indicated? Cult not indicated U Opiates 300ng/mL cut Positive H Ur Oxycodone Screen Negative Urine Methadone Screen Negative Ur Barbiturates Screen Negative U Tricyclic Antidepress Negative Ur Phencyclidine Scrn Negative Ur Amphetamines Screen Negative U Methamphetamines Scrn Negative Ur MDMA Scrn (Ecstasy) Negative U Benzodiazepines Scrn Negative Urine Cocaine Screen Negative U Marijuana (THC) Screen Negative Ethyl Alcohol SARS-CoV-2 (PCR) Assessment & Plan Assessment & Plan narrative: Mr. Covington is an 82M with PMH HTN, depression, afib who presents with headache and confusion. 1. Acute encephalopathy with acute headache -etiology not clear currently suspect possible complex migraine, vs hypertensive encephalopathy, vs less likely meningitis/encephalitis vs medication (lyrica) -workup shows mild leukocytosis, no fevers, mild neck pain -CT head and MR head with no acute process' -empirically treat for encephalitis/meningitis with broad spectrum antibiotics with vanco/meropenem, and acyclovir -continue dexamethasone for possible strep pneumo, meningitis, though think less likely -for hypertension restart metoprolol and losartan, BP on floor improved to 160s from 190s, no indication for further rapid lowering -continue pain control -INR elevated, ordered for vitamin K -ordered LP to check CSF, meningitis panel 2. Atrial fibrillation with RVR -hold xarelto for now -continue metoprolol 3. Hypertension -continue losartan 4. Peripheral neuropathy -hold lyrica for now CODE: Full Proxy: Esme Covington, I have utilized all available resources to reconcile the patient's home medications Time Spent With Patient Critical Care time: I spent a total of [] minutes of critical care time on this patient's care today; this time is exclusive of procedural time. Quality VTE Deep Vein Thrombosis/Pulmonary Embolism Present on Admission: No MIPS - Admit I confirm the patient?s Advance Care Plan is present, Code status is documented, Surrogate decision maker is in patient?s record [If Yes, STOP here]: Yes
[2022-05-29] MEDS: VANCOMYCIN 1,500 MG/300 ML PIGGYBACK 200 MG IV (17:56)
[2022-05-29] MEDS: MEROPENEM 2 GM in SODIUM CHLORIDE 0.9% 100 ML IV (20:15)
[2022-05-30] VITALS (9 sets, daily range): BP systolic 124–141; BP diastolic 54–98; PULSE 75–111; RESP 16–22; TEMP 36.1–36.9; O2SAT 94–100
[2022-05-30] MEDS: ACYCLOVIR 1,000 MG in DEXTROSE 5% IN WATER 250 ML 250 MG IV ×3 (00:10→17:21)
[2022-05-30] MEDS: VANCOMYCIN 1,000 MG/200 ML PIGGYBACK 200 MG IV ×3 (01:18→16:09)
[2022-05-30] MEDS: MEROPENEM 2 GM in SODIUM CHLORIDE 0.9% 100 ML IV ×3 (02:30→17:58)
[2022-05-30] MEDS: DEXAMETHASONE 10 MG/ML VIAL IV ×3 (03:07→16:09)
[2022-05-30 06:14] LABS: Add Manual Diff / Slide Review NO; Basophils Absolute Auto 100 /uL (0-100); Basophils Percent Auto 0.4 % (0-2); Eosinophils Absolute Auto 0 /uL (0-450); Eosinophils Percent Auto 0.1 % (2-4); Hematocrit 38.8 % (41-53); Hemoglobin 13.6 g/dL (13.5-17.5); Lymphocytes Absolute Auto 900 /uL (1100-4500); Lymphocytes Percent Auto 6.3 % (25-40); Mean Corpuscular Hemoglobin 31.4 PG (26-34); Mean Corpuscular Volume 89.6 fL (80-100); Monocytes Absolute Auto 500 /uL (0-900); Monocytes Percent Auto 3.5 % (3-14); Neutrophils Absolute Auto 12500 /uL (1500-7000); Neutrophils Percent Auto 89.7 % (50-75); Platelet Count 277 X10^3/uL (150-400); Red Blood Cell Count 4.33 X10^6/uL (4.5-5.9); Red Cell Distribution Width 13.2 % (11.6-14.8); White Blood Cell Count 13.9 X10^3/uL (4.5-11.0)
[2022-05-30 06:19] LABS: INR 1.5 (0.9-1.3); Prothrombin Time 16.9 SECONDS (10.1-12.7)
[2022-05-30 06:25] LABS: BUN Creatinine Ratio 31.5 (6-22); Blood Urea Nitrogen 23 mg/dL (9-20); Calcium 8.8 mg/dL (8.4-10.2); Carbon Dioxide 24 mmol/L (22-32); Chloride 99 mmol/L (98-107); Estimated Glomerular Filt Rate > 60 mL/min (>60); Glucose 200 mg/dL (80-110); HEMOLYSIS < 15 (0-50); Potassium 3.6 mmol/L (3.4-5.1); Sodium 136 mmol/L (137-145)
[2022-05-30 06:26] LABS: Alanine Aminotransferase 19 IU/L (<50); Albumin 3.7 g/dL (3.5-5.0); Alkaline Phosphatase 107 U/L (38-126); Aspartate Aminotransferase 22 IU/L (17-59); Bilirubin Total 1.5 mg/dL (0.2-1.3); Bilirubin Unconjugated 1.2 mg/dL (0.0-1.1); Globulin 3.6 g/dL (1.7-4.1); HEMOLYSIS < 15 (0-50); Total Protein 7.3 g/dL (6.3-8.2)
[2022-05-30] MEDS: LOSARTAN 50 MG TABLET PO (08:27)
[2022-05-30] MEDS: METOPROLOL ER 50 MG TABLET PO ×2 (08:27→20:29)
--- NOTE | 2022-05-30 09:39 | P.PN_ITS ---
Subjective Subjective Date Patient Seen: 05/30/22 Time Patient Seen: 08:00 Interval history: He remains very confused. He is impulsive. He denies any headache or any other symptoms. Exam Vital Signs (past 8 hours): - 05/30/22 05:44 05/30/22 08:11 Temperature 97.6 F 98.4 F Pulse Rate 100 H 105 H Respiratory Rate 18 20 Blood Pressure 127/84 124/64 Pulse Oximetry 94 95 Oxygen Flow Rate 0 0 Oxygen Delivery Method Room Air Oxygen Flow Rate 0 Narrative Exam Narrative: GEN: mild distress, confused PULM: clear bilaterally, no wheezes, rhonchi, rales CV: regular rate and rhythm, no murmurs ABD: soft, nontender, nondistended, no organomegaly EXT: warm and well perfused with no edema NEURO: awake, alert, confused, no focal deficits Objective Labs Result Diagrams: 05/30/22 06:00 05/30/22 06:00 Labs: Laboratory Results - last 24 hr 05/29/22 05/29/22 05/29/22 10:37 10:37 10:37 WBC 11.6 H RBC 4.59 Hgb 14.5 Hct 41.7 MCV 90.9 MCH 31.6 MCHC 34.8 RDW 13.2 Plt Count 251 Neut % (Auto) 72.4 Lymph % (Auto) 11.9 L [place] % (Auto) 12.9 Eos % (Auto) 2.3 Baso % (Auto) 0.5 Neut # (Auto) 8400 H Lymph # (Auto) 1400 [place] # (Auto) 1500 H Eos # (Auto) 300 Baso # (Auto) 100 PT 23.3 H INR 2.0 H APTT 41 H Sodium 138 Potassium 3.7 Chloride 98 Carbon Dioxide 30 BUN 21 H Creatinine 0.83 Estimated GFR > 60 BUN/Creatinine Ratio 25.3 H Glucose 142 H Lactate Calcium 9.0 Magnesium 1.8 Total Bilirubin 1.8 H Conjugated Bilirubin Unconjugated Bilirubin AST 20 ALT 14 Alkaline Phosphatase 125 Ammonia Total Creatine Kinase 35 L CK-MB (CK-2) TNP CK-MB (CK-2) Rel Index TNP Troponin I < 0.012 NT-Pro-B Natriuret Pep 2290 H Total Protein 8.0 Albumin 4.1 Globulin 3.9 Albumin/Globulin Ratio 1.1 Lipase 35 Procalcitonin 0.11 Urine Color Urine Appearance Urine pH Ur Specific [place] Urine Protein Urine Glucose (UA) Urine Ketones Urine Occult Blood Urine Nitrate Urine Bilirubin Urine Urobilinogen Ur Leukocyte Esterase Urine RBC Urine WBC Amorphous Sediment Urine Bacteria Ur Culture Indicated? U Opiates 300ng/mL cut Ur Oxycodone Screen Urine Methadone Screen Ur Barbiturates Screen U Tricyclic Antidepress Ur Phencyclidine Scrn Ur Amphetamines Screen U Methamphetamines Scrn Ur MDMA Scrn (Ecstasy) U Benzodiazepines Scrn Urine Cocaine Screen U Marijuana (THC) Screen Ethyl Alcohol < 10 SARS-CoV-2 (PCR) 05/29/22 05/29/22 05/29/22 10:37 10:37 10:37 WBC RBC Hgb Hct MCV MCH MCHC RDW Plt Count Neut % (Auto) Lymph % (Auto) [place] % (Auto) Eos % (Auto) Baso % (Auto) Neut # (Auto) Lymph # (Auto) [place] # (Auto) Eos # (Auto) Baso # (Auto) PT INR APTT Sodium Potassium Chloride Carbon Dioxide BUN Creatinine Estimated GFR BUN/Creatinine Ratio Glucose Lactate 1.5 Calcium Magnesium Total Bilirubin Conjugated Bilirubin Unconjugated Bilirubin AST ALT Alkaline Phosphatase Ammonia < 9 L Total Creatine Kinase CK-MB (CK-2) CK-MB (CK-2) Rel Index Troponin I NT-Pro-B Natriuret Pep Total Protein Albumin Globulin Albumin/Globulin Ratio Lipase Procalcitonin Urine Color Urine Appearance Urine pH Ur Specific [place] Urine Protein Urine Glucose (UA) Urine Ketones Urine Occult Blood Urine Nitrate Urine Bilirubin Urine Urobilinogen Ur Leukocyte Esterase Urine RBC Urine WBC Amorphous Sediment Urine Bacteria Ur Culture Indicated? U Opiates 300ng/mL cut Ur Oxycodone Screen Urine Methadone Screen Ur Barbiturates Screen U Tricyclic Antidepress Ur Phencyclidine Scrn Ur Amphetamines Screen U Methamphetamines Scrn Ur MDMA Scrn (Ecstasy) U Benzodiazepines Scrn Urine Cocaine Screen U Marijuana (THC) Screen Ethyl Alcohol SARS-CoV-2 (PCR) Negative 05/29/22 05/29/22 05/30/22 11:05 11:24 06:00 WBC 13.9 H RBC 4.33 L Hgb 13.6 Hct 38.8 L MCV 89.6 MCH 31.4 MCHC 35.0 RDW 13.2 Plt Count 277 Neut % (Auto) 89.7 H Lymph % (Auto) 6.3 L [place] % (Auto) 3.5 Eos % (Auto) 0.1 L Baso % (Auto) 0.4 Neut # (Auto) 06864 H Lymph # (Auto) 900 L [place] # (Auto) 500 Eos # (Auto) 0 Baso # (Auto) 100 PT INR APTT Sodium Potassium Chloride Carbon Dioxide BUN Creatinine Estimated GFR BUN/Creatinine Ratio Glucose Lactate Calcium Magnesium Total Bilirubin Conjugated Bilirubin Unconjugated Bilirubin AST ALT Alkaline Phosphatase Ammonia Total Creatine Kinase CK-MB (CK-2) CK-MB (CK-2) Rel Index Troponin I NT-Pro-B Natriuret Pep Total Protein Albumin Globulin Albumin/Globulin Ratio Lipase Procalcitonin Urine Color Yellow Urine Appearance Clear Urine pH 6.0 Ur Specific [place] 1.015 Urine Protein 1+ H Urine Glucose (UA) Negative Urine Ketones Trace H Urine Occult Blood Trace-intact Urine Nitrate Negative Urine Bilirubin Negative Urine Urobilinogen 1.0 Ur Leukocyte Esterase Negative Urine RBC 1-5/hpf D Urine WBC 0-1/hpf Amorphous Sediment 2+ Urine Bacteria Occasional (0-1) Ur Culture Indicated? Cult not indicated U Opiates 300ng/mL cut Positive H Ur Oxycodone Screen Negative Urine Methadone Screen Negative Ur Barbiturates Screen Negative U Tricyclic Antidepress Negative Ur Phencyclidine Scrn Negative Ur Amphetamines Screen Negative U Methamphetamines Scrn Negative Ur MDMA Scrn (Ecstasy) Negative U Benzodiazepines Scrn Negative Urine Cocaine Screen Negative U Marijuana (THC) Screen Negative Ethyl Alcohol SARS-CoV-2 (PCR) 05/30/22 05/30/22 05/30/22 06:00 06:00 06:00 WBC RBC Hgb Hct MCV MCH MCHC RDW Plt Count Neut % (Auto) Lymph % (Auto) [place] % (Auto) Eos % (Auto) Baso % (Auto) Neut # (Auto) Lymph # (Auto) [place] # (Auto) Eos # (Auto) Baso # (Auto) PT 16.9 H D INR 1.5 H APTT Sodium 136 L Potassium 3.6 Chloride 99 Carbon Dioxide 24 BUN 23 H Creatinine 0.73 Estimated GFR > 60 BUN/Creatinine Ratio 31.5 H Glucose 200 H Lactate Calcium 8.8 Magnesium Total Bilirubin 1.5 H Conjugated Bilirubin 0.0 Unconjugated Bilirubin 1.2 H AST 22 ALT 19 Alkaline Phosphatase 107 Ammonia Total Creatine Kinase CK-MB (CK-2) CK-MB (CK-2) Rel Index Troponin I NT-Pro-B Natriuret Pep Total Protein 7.3 Albumin 3.7 Globulin 3.6 Albumin/Globulin Ratio 1.0 Lipase Procalcitonin Urine Color Urine Appearance Urine pH Ur Specific [place] Urine Protein Urine Glucose (UA) Urine Ketones Urine Occult Blood Urine Nitrate Urine Bilirubin Urine Urobilinogen Ur Leukocyte Esterase Urine RBC Urine WBC Amorphous Sediment Urine Bacteria Ur Culture Indicated? U Opiates 300ng/mL cut Ur Oxycodone Screen Urine Methadone Screen Ur Barbiturates Screen U Tricyclic Antidepress Ur Phencyclidine Scrn Ur Amphetamines Screen U Methamphetamines Scrn Ur MDMA Scrn (Ecstasy) U Benzodiazepines Scrn Urine Cocaine Screen U Marijuana (THC) Screen Ethyl Alcohol SARS-CoV-2 (PCR) PFSH Medical History Atrial fibrillation Gait instability Hyperlipidemia Hypertension Left knee DJD Peripheral neuropathy Surgical History H/O vasectomy Hx of circumcision Hx of shoulder surgery Family History Father Cancer Social History household members: spouse Smoking Status: Former smoker alcohol intake: never Assessment & Plan Assessment & Plan narrative: Mr. Covington is an 82M with PMH HTN, depression, afib who presents with headache and confusion. 1. Acute encephalopathy with acute headache -etiology not clear currently suspect possible complex migraine, vs hypertensive encephalopathy, vs meningitis/encephalitis vs medication (lyrica) -workup shows mild leukocytosis, no fevers, mild neck pain -CT head and MR head with no acute process -empirically treat for encephalitis/meningitis with broad spectrum antibiotics with vanco/meropenem, and acyclovir -continue dexamethasone for possible strep pneumo, bacterial meningitis, though think less likely -for hypertension restart metoprolol and losartan, BP on floor improved to 160s from 190s, no indication for further rapid lowering -continue pain control -INR elevated, ordered for vitamin K and improved -ordered LP to check CSF, meningitis panel -urine drug screen with opiates, which are chronic med for patient 2. Atrial fibrillation with RVR -hold xarelto for now -continue metoprolol 3. Hypertension -continue losartan 4. Peripheral neuropathy -hold lyrica for now CODE: Full Proxy: Esme Covington, I have utilized all available resources to reconcile the patient's home medications Time Spent With Patient Critical Care time: I spent a total of [] minutes of critical care time on this patient's care today; this time is exclusive of procedural time. Quality VTE Deep Vein Thrombosis/Pulmonary Embolism Present on Admission: No
--- NOTE | 2022-05-30 11:00 | CM.DANOTE ---
DCP: Case received, EMR reviewed and met with patient. Spouse, Esme, was at bedside. Introduced self and role. Was able to obtain information regarding patient's baseline activity status at home prior to hospitalization. DCP assessment completed with information currently available. Patient is an 82 year old male who admitted yesterday afternoon to the care of the hospitalist team. PCP: Dr. Hoskins. Payer: confirmed: Medicare/[employer]. Patient came to the hospital via private vehicle secondary to having head ache, lethargy, and increased confusion. Patient has history of a-fib. According to notes, spouse indicated that patient was having cluster headaches, and confusion, and complaints of body aches. Patient holds current diagnosis of acute encephalopathy with acute headache. Patient is also noted to have atrial fib with RVR. Today's notes indicate that patient is being treated for encephalitis/Mengitis with broad spectrum antibiotics. Met with patient and spouse in the room. Patient was sitting up in his chair, using Ipad. He was minimally conversive. Spouse confirmed that patient no longer drives, and uses a scooter for mobility. They both reside in [place]. Let spouse know that this [place] Campaign Fundraiser is here to assist with resources, such as home health. Patient at this time does not have any therapy orders. Patient has been impulsive, here in the hospital, attempting to get up on his own. P: DCP to follow closely for needs. Have confirmed with UR that patient is inpatient. Allyson Slade RN/Director Of Pharmacy Discharge Planning/Care Management Advanced directive, confirm from FAMILY Start: 05/29/22 14:38 Freq: Q24H Status: Active Protocol: Document 05/29/22 19:45 AGW (Rec: 05/30/22 04:02 [email or web address] [id number]) Advance Directive, confirm on record Time 19:45 Person contacted patient Copy received No CM Discharge Assessment Start: 05/30/22 09:24 Freq: Status: Active Protocol: Document 05/30/22 09:24 (Rec: 05/30/22 09:34 [id number]) Discharge Planning Assessment Assigned [employer] Allyson Slade RN/Director Of Pharmacy Advance Directives? Yes Advance Directives on File No History Provided By Patient,Significant Other, Medical Record Prior Living Arrangements House Household Members spouse Type of transporation used prior to Relies on Others admit Independent with ADL's Yes Is patient alert and oriented? Some confusion noted, alert to self Needs Assistance With Meal Prep,Home Chores / Shopping Caregiver for Another No DME Already Rented / Owned Other Comment Patient uses a scooter Barriers to Discharge No Discharge Plan Home Transportation Arrangement Spouse can provide transport at d/c Referrals Initiated Other Additional Comment Home Health may be a possibility Whiteboard Updated in Patient Room with Yes name and ext. # of [employer] Review Status In Process Next Review Type Continued Stay Review
--- NOTE | 2022-05-30 18:48 | PC.NURSE ---
Pt suspicious earlier, thought his was trying to kill him, then told his he was concerned for there safety thinking someone on staff here may try to kill them. MD Art made aware of how labile pt was this afternoon, if steroids could be a factor, Dr. Art he will look at meds later, cont to monitor. Later found pt in loud racking sobs, talking about how yellow is the perfect light color. Later he was talking to his about their sons . reports pt didn't cry when their son . She is extremely distressed about her husbands current condition. Dr. Art paged and notified of pt's extreme emotional responses. He will review medication list and consider medication to help relax pt.
[2022-05-30] MEDS: QUETIAPINE 25 MG TABLET PO (20:29)
[2022-05-30] MEDS: LORazepam 2 MG/ML INJ 0.5 MG IV (23:59)
[2022-05-31] VITALS (11 sets, daily range): BP systolic 126–171; BP diastolic 85–110; PULSE 63–120; RESP 18–22; TEMP 36.3–36.5; O2SAT 93–97
[2022-05-31] MEDS: ACYCLOVIR 1,000 MG in DEXTROSE 5% IN WATER 250 ML 250 MG IV ×3 (00:25→16:37)
[2022-05-31] MEDS: VANCOMYCIN TROUGH 1 REQUEST MISC (01:11)
[2022-05-31] MEDS: MEROPENEM 2 GM in SODIUM CHLORIDE 0.9% 100 ML IV ×3 (01:54→18:13)
--- NOTE | 2022-05-31 04:56 | PC.NURSE ---
At 1055 on 05/30/22 this BROILER MANAGER went to do patient rounds and when I asked room 218 if he is doing okay he said you stupid bitch. Then ask I tried to get closer to pull the sheet back over him he swatted at me. I reported to the nurse what happened. At 0456 this BROILER MANAGER was taking vital signs when this patient did not want to keep his arm still. I asked him to please keep the arm still in order for us to have an accurate reading and he had no reply. He then grabbed onto the blood pressure cuff and did not want to let it go.
[2022-05-31] MEDS: VANCOMYCIN 1,250 MG/250 ML PIGGYBACK 167 MG IV ×2 (06:54→19:44)
[2022-05-31] MEDS: METOPROLOL ER 50 MG TABLET PO ×2 (10:36→20:22)
[2022-05-31] MEDS: LOSARTAN 50 MG TABLET PO (10:36)
--- NOTE | 2022-05-31 11:58 | CM.DPC ---
DCP/continued: Reviewed chart. LP cancelled yesterday due to patient's confusion/cognitive status. Spoke with provider in AM rounds and she reports that patient may have LP today. RN reports patient continues to confusion and it is unclear if LP would be safe with patient's confusion. CM team following closely. P: Anticipate home when stable. Unclear at this time if patient would benefit from home health? KIAH Stevens
--- NOTE | 2022-05-31 12:27 | P.PN_ITS ---
Subjective Subjective Interval history: Patient very delirious not very interactive. Does respond to being agitated. present and very concerned. Discussed the patient's diagnosis investigation and progress with the patient the . No new nursing concerns. Exam Vital Signs (past 8 hours): - 05/31/22 04:55 05/31/22 10:36 05/31/22 10:36 Temperature 97.5 F L Pulse Rate 107 H 107 H 107 H Respiratory Rate 20 Blood Pressure 171/110 H 171/110 H 171/110 H Pulse Oximetry 95 Oxygen Flow Rate 0 Oxygen Delivery Method Room Air Oxygen Flow Rate 0 Narrative Exam Narrative: GEN: mild distress, very confused PULM: clear bilaterally, no wheezes, rhonchi, rales CV: regular rate and rhythm, no murmurs ABD: soft, nontender, nondistended, no organomegaly EXT: warm and well perfused with no edema NEURO: can respond to agitation, confused, no focal deficits Objective Labs Result Diagrams: 05/30/22 06:00 05/30/22 06:00 Labs: Laboratory Results - last 24 hr 05/31/22 00:29 Vancomycin Trough 21.0 H* PFSH Medical History Atrial fibrillation Gait instability Hyperlipidemia Hypertension Left knee DJD Peripheral neuropathy Surgical History H/O vasectomy Hx of circumcision Hx of shoulder surgery Family History Father Cancer Social History household members: spouse Smoking Status: Former smoker alcohol intake: never Assessment & Plan Assessment & Plan narrative: 1. Acute encephalopathy with acute headache suspect possible complex migraine, vs hypertensive encephalopathy, vs? meningitis/encephalitis vs medication (lyrica) mild leukocytosis, no fevers, mild neck pain favoring infective process continue empirically treat for encephalitis/meningitis with broad spectrum antibiotics with vanco/meropenem, and acyclovir continue dexamethasone for possible strep pneumo, bacterial meningitis, though less likely hypertension restart metoprolol and losartan, BP on floor improved to 160s from 190s, today elevated to 171/110 will initiate hydralazine. continue pain control INR elevated, ordered for vitamin K and improved. Continue to follow. ordered LP to check CSF, meningitis panel.. However on hold due to patient a gitation urine drug screen with opiates, which are chronic med for patient 2. Atrial fibrillation with RVR hold xarelto for now continue metoprolol, rate today 107. 3. Hypertension continue losartan and metoprolol. Today provide hydralazine as needed for systolic 170 or higher or diastolic 110 or higher. 4. Peripheral neuropathy hold lyrica 5. Hyperglycemia. Likely secondary to dexamethasone. Provide glargine q.h.s. and sliding scale insulin every 6 hours. Follow labs and clinically. CODE: Full Proxy: Esme Covington, Time Spent With Patient Critical Care time: I spent a total of [] minutes of critical care time on this patient's care today; this time is exclusive of procedural time. Quality VTE Deep Vein Thrombosis/Pulmonary Embolism Present on Admission: No
[2022-05-31] MEDS: INSULIN GLARGINE 100 UNIT/ML 3ML PEN 10 UNIT SUBCUT ×2 (14:03→20:25)
[2022-05-31] MEDS: INSULIN LISPRO 100 UNIT/ML 3ML VIAL SUBCUT (14:04)
[2022-06-01] VITALS (13 sets, daily range): BP systolic 127–153; BP diastolic 80–108; PULSE 82–146; RESP 18–20; TEMP 36.4–37.3; O2SAT 93–97
[2022-06-01] MEDS: ACYCLOVIR 1,000 MG in DEXTROSE 5% IN WATER 250 ML 250 MG IV ×3 (00:36→17:25)
[2022-06-01] MEDS: MEROPENEM 2 GM in SODIUM CHLORIDE 0.9% 100 ML IV ×3 (02:28→23:10)
[2022-06-01] MEDS: METOPROLOL TARTRATE 5 MG/5 ML INJ IV (03:48)
[2022-06-01] MEDS: VANCOMYCIN 1,250 MG/250 ML PIGGYBACK 167 MG IV ×2 (06:03→21:23)
[2022-06-01] MEDS: INSULIN LISPRO 100 UNIT/ML 3ML VIAL SUBCUT (06:09)
[2022-06-01 06:29] LABS: Add Manual Diff / Slide Review NO; Basophils Absolute Auto 0 /uL (0-100); Basophils Percent Auto 0.2 % (0-2); Eosinophils Absolute Auto 0 /uL (0-450); Eosinophils Percent Auto 0.1 % (2-4); Hematocrit 37.5 % (41-53); INR 1.4 (0.9-1.3); Lymphocytes Absolute Auto 900 /uL (1100-4500); Lymphocytes Percent Auto 5.9 % (25-40); Mean Corpuscular HGB Conc 34.7 % (30-36); Mean Corpuscular Hemoglobin 30.9 PG (26-34); Mean Corpuscular Volume 89.1 fL (80-100); Monocytes Absolute Auto 1400 /uL (0-900); Monocytes Percent Auto 8.9 % (3-14); Neutrophils Absolute Auto 12800 /uL (1500-7000); Neutrophils Percent Auto 84.9 % (50-75); Platelet Count 319 X10^3/uL (150-400); Red Blood Cell Count 4.21 X10^6/uL (4.5-5.9); White Blood Cell Count 15.1 X10^3/uL (4.5-11.0)
[2022-06-01 06:38] LABS: Alanine Aminotransferase 20 IU/L (<50); Albumin 3.2 g/dL (3.5-5.0); Alkaline Phosphatase 90 U/L (38-126); Aspartate Aminotransferase 26 IU/L (17-59); BUN Creatinine Ratio 42.9 (6-22); Bilirubin Total 0.8 mg/dL (0.2-1.3); Blood Urea Nitrogen 30 mg/dL (9-20); Calcium 8.4 mg/dL (8.4-10.2); Carbon Dioxide 28 mmol/L (22-32); Chloride 101 mmol/L (98-107); Estimated Glomerular Filt Rate > 60 mL/min (>60); Globulin 3.1 g/dL (1.7-4.1); Glucose 164 mg/dL (80-110); HEMOLYSIS < 15 (0-50); Potassium 3.6 mmol/L (3.4-5.1); Sodium 138 mmol/L (137-145); Total Protein 6.3 g/dL (6.3-8.2)
[2022-06-01 06:51] LABS: Procalcitonin 0.06 ng/mL (<0.5)
[2022-06-01] MEDS: LOSARTAN 50 MG TABLET PO (08:48)
[2022-06-01] MEDS: METOPROLOL ER 50 MG TABLET PO ×2 (08:49→21:48)
--- NOTE | 2022-06-01 13:00 | DI.RAD.S_ITS ---
PROCEDURE: FL GUIDED LUMBAR PUNCTURE LP INDICATIONS: headache, confused, leukocytosis COMPARISON: [facility], MR, MR LUMBAR SPINE WITH/WITHOUT CONTRAST, 01/15/2019, 10:05. TECHNIQUE: The indications, alternatives, benefits, risks, and complications were explained to the patient. Written informed consent was obtained and placed in the chart. The patient was placed in a prone position on the fluoroscopy table, and a level was chosen for percutaneous access under fluoroscopic guidance. The site was prepped and draped in a sterile fashion. After local anaesthetic, a spinal needle was then used to enter the intrathecal space, with return of cerebrospinal fluid. After obtaining sufficient fluid, the needle was then withdrawn, and a bandage applied to the puncture site. FINDINGS: Puncture level: L3-4 Needle: Spinal needle. Opening pressure: Not requested. CSF volume and description: Approximately 3 mL clear fluid. Slow flow of spinal fluid was noted which ultimately ceased flowing. Multiple attempts were made to obtain additional fluid unsuccessfully. Medications: 1% lidocaine for anaesthesia. Complications: None. Laboratories: As ordered by referring clinician. IMPRESSION: Successful fluoroscopically guided lumbar puncture. Only a small volume of clear cerebrospinal fluid was obtained. Dictated by: Pantera Flannery M.D. on 06/01/2022 at 14:30 Approved by: Pantera Flannery M.D. on 06/01/2022 at 14:35
--- NOTE | 2022-06-01 13:11 | CM.DPC ---
DCP Cont: Discussed patient during team rounds. He has had a one to one sitter due to increased confusion. It was noted this am, patient's cognition has improved. He will not be having LP according to hospitalist. P: DCP to continue to follow closely for needs. Allyson Slade RN/Field Operations Coordinator
--- NOTE | 2022-06-01 14:23 | PM.PN.1 ---
Subjective Subjective Date Patient Seen: 06/01/22 Time Patient Seen: 13:50 Interval history: Patient is post lumbar puncture today. Feeling fine. No new complaints. Not confused and talkative today. Exam Vital Signs (past 8 hours): - 06/01/22 08:48 06/01/22 08:48 06/01/22 08:49 Temperature Pulse Rate 84 84 Respiratory Rate Blood Pressure 145/101 H 145/101 H 145/101 H Pulse Oximetry Oxygen Delivery Method Oxygen Flow Rate 06/01/22 08:43 06/01/22 08:43 06/01/22 12:00 Temperature 97.6 F 97.7 F Pulse Rate 82 Respiratory Rate 18 18 Blood Pressure 153/94 H Pulse Oximetry 97 97 95 Oxygen Delivery Method Room Air Oxygen Flow Rate 0 0 0 Oxygen Delivery Method Room Air Oxygen Flow Rate 0 Narrative Exam Narrative: GEN: In no acute distress. Not confused. PULM: clear bilaterally, no wheezes, rhonchi, rales CV: regular rate and rhythm, no murmurs ABD: soft, nontender, nondistended, no organomegaly EXT: warm and well perfused with no edema NEURO:? no focal deficits Objective Labs Result Diagrams: 06/01/22 06:13 06/01/22 06:13 Labs: Laboratory Results - last 24 hr 06/01/22 06/01/22 06/01/22 06:13 06:13 06:13 WBC 15.1 H RBC 4.21 L Hgb 13.0 L Hct 37.5 L MCV 89.1 MCH 30.9 MCHC 34.7 RDW 13.0 Plt Count 319 Neut % (Auto) 84.9 H Lymph % (Auto) 5.9 L [place] % (Auto) 8.9 Eos % (Auto) 0.1 L Baso % (Auto) 0.2 Neut # (Auto) 47231 H Lymph # (Auto) 900 L [place] # (Auto) 1400 H Eos # (Auto) 0 Baso # (Auto) 0 PT 16.0 H INR 1.4 H Sodium 138 Potassium 3.6 Chloride 101 Carbon Dioxide 28 BUN 30 H Creatinine 0.70 Estimated GFR > 60 BUN/Creatinine Ratio 42.9 H Glucose 164 H Calcium 8.4 Total Bilirubin 0.8 AST 26 ALT 20 Alkaline Phosphatase 90 C-Reactive Protein 5.0 H Total Protein 6.3 Albumin 3.2 L Globulin 3.1 Albumin/Globulin Ratio 1.0 Procalcitonin 0.06 PFSH Medical History Atrial fibrillation Gait instability Hyperlipidemia Hypertension Left knee DJD Peripheral neuropathy Surgical History H/O vasectomy Hx of circumcision Hx of shoulder surgery Family History Father Cancer Social History household members: spouse Smoking Status: Former smoker alcohol intake: never Assessment & Plan Assessment & Plan narrative: 1. Acute encephalopathy with acute headache ?suspect possible complex migraine, vs hypertensive encephalopathy, vs? meningitis/encephalitis vs medication (lyrica) ?mild leukocytosis, no fevers, mild neck pain favoring infective process ?continue empirically treat for encephalitis/meningitis with broad spectrum antibiotics with vanco/meropenem, and acyclovir ?continue dexamethasone for possible strep pneumo, bacterial meningitis, though less likely ?hypertension restart metoprolol and losartan, BP on floor improved to 160s from 190s, today elevated to 171/110 will initiate hydralazine. ?continue pain control ?INR elevated, ordered for vitamin K and improved.? Continue to follow. ?ordered LP to check CSF, meningitis panel. This has been completed and test results pending. ?urine drug screen with opiates, which are chronic med for patient 2. Atrial fibrillation with RVR hold xarelto for now, due to LP. continue metoprolol, rate today 82. 3. Hypertension continue losartan and metoprolol.? Provide hydralazine as needed for systolic 170 or higher or diastolic 110 or higher. 4. Peripheral neuropathy hold lyrica 5. Hyperglycemia.? Likely secondary to dexamethasone.? Provide glargine q.h.s. and sliding scale insulin every 6 hours. Follow labs and clinically. CODE: Full Proxy: Esme Covington, Time Spent With Patient Critical Care time: I spent a total of [] minutes of critical care time on this patient's care today; this time is exclusive of procedural time. Quality VTE Deep Vein Thrombosis/Pulmonary Embolism Present on Admission: No
[2022-06-01 16:00] LABS: Total Protein CSF 135 mg/dL (12-60)
[2022-06-01 17:37] LABS: Cryptococcus neoformans/gattii Not Detected (Not Detect); Enterovirus Not Detected (Not Detect); Escherichia coli K1 Not Detected (Not Detect); Haemophilus influenzae Not Detected (Not Detect); Herpes simplex virus 1 Not Detected (Not Detect); Herpes simplex virus 2 Not Detected (Not Detect); Human herpesvirus 6 Not Detected (Not Detect); Human parechovirus Not Detected (Not Detect); Listeria monocytogenes Not Detected (Not Detect); Neisseria meningitidis Not Detected (Not Detect); Streptococcus agalactiae Not Detected (Not Detect); Streptococcus pneumoniae Not Detected (Not Detect); Varicella Zoster Virus Not Detected (Not Detecte)
[2022-06-01 17:52] LABS: CSF Tube Number 2
[2022-06-01 17:53] LABS: CSF Tube Volume 0.5 mL; Color CSF Colorless (Colorless)
[2022-06-01 17:54] LABS: Glucose CSF 100 mg/dL (40-70)
[2022-06-01 18:22] LABS: Vancomycin Trough 20.1 ug/mL (10-20)
[2022-06-01 19:05] LABS: Appearance CSF Clear (Clear)
[2022-06-01 19:17] LABS: Red Blood Cell CSF 0 RBC /uL
[2022-06-01 19:18] LABS: White Blood Cell CSF 4 MONO/uL (0-5)
[2022-06-01 19:26] LABS: Mononuclear WBC CSF 0 %; Polynuclear WBC CSF 0 %
--- NOTE | 2022-06-01 19:40 | PC.NURSE ---
Addendum entered by Suzy Tate R.N. 06/01/22 19:47: Dr. Beach notified that meropenem and vancomycin not administered due to delayed acyclovir infusion. No new orders given. Dr. Andrew states, administer meropenem and vancomycin when acyclovir finished. RN Rebeca notified during shift change report. Original Note: 16:10 Spoke to [facility] inpatient pharmacy, notified that this RN does not have IV acyclovir that is scheduled for 16:00, [facility], will send it up. 17:10 Called pharmacy and spoke with [facility], notified that I still have not received IV acyclovir, [facility] states, there was a mix up and the acyclovir was not mixed and ready will send up now. 17:25 Acylovir administered, see MAR.
[2022-06-01] MEDS: INSULIN GLARGINE 100 UNIT/ML 3ML PEN 10 UNIT SUBCUT ×2 (21:40→21:53)
[2022-06-01] MEDS: VANCOMYCIN PEAK 1 REQUEST MISC (23:55)
[2022-06-02] VITALS (10 sets, daily range): BP systolic 118–149; BP diastolic 83–106; PULSE 60–139; RESP 14–18; TEMP 36.5–36.8; O2SAT 93–97
[2022-06-02] MEDS: ACETAMINOPHEN 325 MG TABLET 650 MG PO ×2 (00:02→08:31)
[2022-06-02 00:35] LABS: Vancomycin Peak 34.3 ug/mL (20-40)
[2022-06-02] MEDS: ACYCLOVIR 1,000 MG in DEXTROSE 5% IN WATER 250 ML 250 MG IV (01:01)
--- NOTE | 2022-06-02 02:29 | PC.NURSE ---
On 06/02/22 at 02:29 this RISK CONTROL CONSULTANT heard a loud whistle from [address]. I turned on the light and found patient scooted down towards the end of his bed supine with no blankets or pillows. He asked where is everyone? I told him here at the hospital the staff is around and the patients are all sleeping. I then reported back to nurse. At 02:32 the bed alarm in [address] went off and this RISK CONTROL CONSULTANT checked the patient, he was sitting on the edge of the bed and asked why are you staff here so late? His nurse was standing at the door. I walked with patient to the bathroom.
[2022-06-02 06:17] LABS: Add Manual Diff / Slide Review NO; Basophils Absolute Auto 0 /uL (0-100); Basophils Percent Auto 0.2 % (0-2); Eosinophils Absolute Auto 500 /uL (0-450); Eosinophils Percent Auto 3.9 % (2-4); Hematocrit 38.4 % (41-53); Hemoglobin 13.3 g/dL (13.5-17.5); Lymphocytes Absolute Auto 1600 /uL (1100-4500); Lymphocytes Percent Auto 13.2 % (25-40); Mean Corpuscular HGB Conc 34.6 % (30-36); Mean Corpuscular Hemoglobin 30.8 PG (26-34); Monocytes Absolute Auto 1600 /uL (0-900); Monocytes Percent Auto 12.7 % (3-14); Neutrophils Absolute Auto 8600 /uL (1500-7000); Platelet Count 306 X10^3/uL (150-400); Red Blood Cell Count 4.31 X10^6/uL (4.5-5.9); Red Cell Distribution Width 13.3 % (11.6-14.8); White Blood Cell Count 12.3 X10^3/uL (4.5-11.0)
[2022-06-02 06:27] LABS: Alanine Aminotransferase 35 IU/L (<50); Albumin 3.3 g/dL (3.5-5.0); Alkaline Phosphatase 100 U/L (38-126); Aspartate Aminotransferase 38 IU/L (17-59); BUN Creatinine Ratio 32.9 (6-22); Blood Urea Nitrogen 24 mg/dL (9-20); C-Reactive Protein Quant 3.7 mg/dL (<1.0); Calcium 8.3 mg/dL (8.4-10.2); Carbon Dioxide 30 mmol/L (22-32); Chloride 99 mmol/L (98-107); Estimated Glomerular Filt Rate > 60 mL/min (>60); Globulin 3.3 g/dL (1.7-4.1); Glucose 113 mg/dL (80-110); HEMOLYSIS < 15 (0-50); Potassium 3.5 mmol/L (3.4-5.1); Sodium 139 mmol/L (137-145); Total Protein 6.6 g/dL (6.3-8.2)
[2022-06-02] MEDS: METOPROLOL ER 50 MG TABLET PO ×2 (08:30→20:13)
[2022-06-02] MEDS: POTASSIUM CHLORIDE 20 MEQ TAB 40 MEQ PO (08:30)
[2022-06-02] MEDS: LOSARTAN 50 MG TABLET 100 MG PO (08:30)
[2022-06-02 08:46] LABS: Hemoglobin A1C% w Est Avg Glu 6.2 % (4.0-6.0)
--- NOTE | 2022-06-02 10:17 | PT.IIE ---
Current Diagnoses Encephalopathy, unspecified (05/29/22) Surgical History (Last Reviewed 05/29/22 @ 17:32 by Jorje Art MD) H/O vasectomy Hx of circumcision Hx of shoulder surgery Medical History (Last Reviewed 05/29/22 @ 17:32 by Jorje Art MD) Atrial fibrillation Gait instability Hyperlipidemia Hypertension Left knee DJD Peripheral neuropathy Physical Therapy Inpatient Evaluation/Re-Eval M1 PT/OT-IP Prior Functional Status Start: 06/02/22 13:38 Freq: NEEDED Status: Active Protocol: Document 06/02/22 10:17 AB (Rec: 06/02/22 13:49 AB [id number]) Medical Review Prior Functional Status Medical History Reviewed Yes Communication able to make needs known Mobility and Gait pt stated that he is independent with all mobilities but limited with ambulation; stated that he uses an electric scooter indoors/at home for months but able to walk outdoors using a FWW; stated that he started using an electric scooter due to his LE neuropathy Social History Household Members spouse Living Arrangements House Number of Floors (Floors) One Floor Number of Stairs To Enter/Railing? 2 steps without rails to enter the house Home Environment High Toilet,Walk in Shower Home Equipment Front Wheel Walker,Power Wheelchair/Scooter,Shower Seat with Backrest,Hand Held Shower,Grab Bars Near Toilet, Grab Bars In Shower M2 PT-IP Current Condition Start: 06/02/22 13:38 Freq: NEEDED Status: Active Protocol: Document 06/02/22 10:17 AB (Rec: 06/02/22 13:49 AB [email or web address]) Physical Therapy Current Condition Current Condition Evaluation Date 06/02/22 Treatment Diagnosis acute encephalopathy; HTN; difficulty in walking Onset Date 05/29/22 M3 PT-IP Subjective Start: 06/02/22 13:38 Freq: NEEDED Status: Active Protocol: Document 06/02/22 10:17 AB (Rec: 06/02/22 13:49 AB [email or web address]) Subjective Physical Therapy Visit Type Type Initial Evaluation Visit Start Time 10:17 Visit Stop Time 10:50 Total Visit Minutes 33 Number of [employer] Visits 0 Physical Therapy Visit Comments Patient Comments agreed to do PT Therapy Pain Assessment Pain When Pain Assessed During Mobility Pain Present Pain Present Pain Reported Location Left Hip Scale Used pain scale not stated Pain Management Techniques Distraction,Modification of Treatment,Re-positioning M4 PT-IP Mobility and Gait Start: 06/02/22 13:38 Freq: NEEDED Status: Active Protocol: Document 06/02/22 10:17 AB (Rec: 06/02/22 13:49 AB [email or web address]) PT-Bed Mobility Assessment Supine to Sit Supine to Sit Minimal Assistance PT-Transfer Assessment Sit to and From Stand Sit to and from Stand Minimal Assistance,1 Person Assistance,Use of Upper Extremities Equipment Transfer Assistive Device Gait Belt,Front Wheeled Walker Orthotic/Prosthetic Devices or Brace: No Transfers Transfer Destination Chair Transfer Technique ambulated Transfer Ability Level of Assist Minimal Assistance,1 Person Assistance,Use of Upper Extremities Comments Mobility Comments completed supine to sit min. able to sit on EOB SBA. completed sit to stand min A and cues and ambulated ~ 12 ft using FWW min A. presents with unsteady gait and c/o L hip pain needing to sit down. pt able to sit on the chair. continues to have confusion. spouse in room. positioned pt on the chair. call light and table placed within reach. Gait Assessment Gait Gait Assistance Required: Minimum Assistance Distance (Feet) 12 Able to Maintain Weight Bearing Status Yes During Gait Assistive Devices Assistive Device Gait Belt,Front Wheeled Walker Orthotic/Prosthetic Devices or Brace: No Gait Deviations General Gait Pattern Antalgic,Decreased Stride Length,Decreased Feet Clearance Factors Limiting Gait Function Factors Limiting Gait Function Decreased Activity Tolerance, Decreased Sensation,Decreased Strength,Difficulty Following Directions,Limited Range of Motion,Pain,Poor Balance,Poor Safety Awareness PT-Balance Assessment Sitting Balance and Reactions Static Sitting Balance Ability Good Dynamic Sitting Balance Ability Fair Standing Balance and Reactions Static Standing Balance Ability Fair Dynamic Standing Balance Ability Poor Device Used FWW M5 PT-IP Objective Assessments Start: 06/02/22 13:38 Freq: NEEDED Status: Active Protocol: Document 06/02/22 10:17 AB (Rec: 06/02/22 13:49 AB [email or web address]) Orientation Orientation/Cognition Level of Alertness Confusional State Orientation Name,Place,Situation Safety Awareness Decreased Safety Awareness Memory Description Short Term Impaired Gross Range of Motion Lower Extremity ROM Assessment Within Functional Limits Strength Lower Extremity Strength Hip 4-/5 Knee 3+/5 Sensation Assessment Sensation Gross Sensation Right LE Impaired,Left LE Impaired Comments Sensation Comments BLE neuropathy Muscle Tone Muscle Tone WNL Yes M6 PT-IP Treatment Start: 06/02/22 13:38 Freq: NEEDED Status: Active Protocol: Document 06/02/22 10:17 AB (Rec: 06/02/22 13:49 AB [email or web address]) Physical Therapy Treatment Education Education Provided Safety M7 PT-IP Assessment and Plan Start: 06/02/22 13:38 Freq: NEEDED Status: Active Protocol: Document 06/02/22 10:17 AB (Rec: 06/02/22 13:49 AB [email or web address]) PT Summary Assessment and Plan Potential Rehabilitation Potential Fair Status of Condition at Evaluation Evolving Summary Impairments Pain,ROM,Strength,Balance, Coordination,Sensation,Tone, Cognition,Bed Mobility, Transfers,Gait,Activity Tolerance Assessment Summary pt requiring min A with mobility using FWW but unable to tolerate much activity and ambulation with c/o L hip pain . pt lives with spouse and d/ c plan depending if spouse will be able to provide necessary assistance to pt. will conduct caregiver training when appropraite as well as stair climbing training. will continue to assess progress. Goals Bed Mobility Goal Standby Assistance Transfer Goal Standby Assistance,Front Wheeled Walker Gait Goal Standby Assistance,Front Wheel Walker Gait Distance 100 Days to Meet Goals 10 Frequency of Treatment Frequency Of Treatment Once a Day Treatment Plan Physical Therapy Treatment Plan Bed Mobility Training,Transfer Training,Gait Training, Therapeutic Exercise,Balance Retraining,Discharge Planning, Hot or Cold Pack,Neuromuscular Re-ed,Coordination Retraining ,Manual Therapy Precautions Other Precautions falls Recommendations To Nursing Amount of Assist Needed 1 Person Assist Discharge Recommendations PT Discharge Recommendations Home with 02/04 Assist Available,Home Health,SNF Rehab,Home vs SNF Transportation Needs at Discharge Private Vehicle,Wheelchair/ Cabulance
--- NOTE | 2022-06-02 11:34 | DI.RAD.S_ITS ---
PROCEDURE: XR HIP W PEL IF DONE BILAT 2V INDICATIONS: assess for degen changes and cause of pain TECHNIQUE: AP pelvis with lateral view(s) of the bilateral hip(s). COMPARISON: None. FINDINGS: Bones: There is severe right and moderate left hip joint space narrowing and large bilateral collar osteophytes. No suspicious bony lesions. No acute fractures or dislocations. Soft tissues: The visualized bowel gas pattern is normal. No suspicious soft tissue calcifications. 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 Dictated by: Luzma Hendrickson M.D. on 06/02/2022 at 12:17 Approved by: Luzma Hendrickson M.D. on 06/02/2022 at 12:18
--- NOTE | 2022-06-02 11:42 | PM.PN.1 ---
Subjective Subjective Interval history: Patient generally feeling better but fatigued and complaining of pains in hips left greater than right. Exam Vital Signs (past 8 hours): - 06/02/22 06:31 06/02/22 08:29 06/02/22 08:30 Temperature 97.7 F Pulse Rate 90 137 H 137 H Respiratory Rate 16 Blood Pressure 134/98 H 141/106 H 141/106 H Pulse Oximetry 95 Oxygen Flow Rate 0 06/02/22 08:30 06/02/22 09:35 Temperature Pulse Rate 137 H 88 Respiratory Rate Blood Pressure 141/106 H 141/95 H Pulse Oximetry Oxygen Flow Rate Oxygen Delivery Method Room Air Oxygen Flow Rate 0 Narrative Exam Narrative: GEN:? In no acute distress.? Not confused. Appears fatigued. PULM: clear bilaterally, no wheezes, rhonchi, rales CV: regular rate and rhythm, no murmurs ABD: soft, nontender, nondistended, no organomegaly EXT: warm and well perfused with no edema. Pain with range of motion of both hips left greater than right. SKIN: Rash on lower extremities. Consistent with stasis dermatitis/yeast infection. NEURO:?? no focal deficits Objective Labs Result Diagrams: 06/02/22 05:43 06/02/22 05:43 Labs: Laboratory Results - last 24 hr 06/01/22 06/01/22 06/01/22 08:48 14:05 14:05 WBC RBC Hgb Hct MCV MCH MCHC RDW Plt Count Neut % (Auto) Lymph % (Auto) [place] % (Auto) Eos % (Auto) Baso % (Auto) Neut # (Auto) Lymph # (Auto) [place] # (Auto) Eos # (Auto) Baso # (Auto) Sodium Potassium Chloride Carbon Dioxide BUN Creatinine Estimated GFR BUN/Creatinine Ratio Glucose Hemoglobin A1c Calcium Total Bilirubin AST ALT Alkaline Phosphatase C-Reactive Protein Total Protein Albumin Globulin Albumin/Globulin Ratio CSF Tube Number CSF Volume CSF Appearance CSF Color CSF WBC CSF RBC CSF Mononuclear WBCs CSF Polynuclear WBCs CSF Glucose CSF Total Protein 135 H CSF C.neoform/gat PCR Not detected CSF CMV DNA (PCR) Not detected CSF Enterovirus (PCR) Not detected CSF E. coli (PCR) Not detected CSF H. influenzae (PCR) Not detected CSF HSV I (PCR) Not detected CSF HSV II (PCR) Not detected CSF HHV 6 (PCR) Not detected CSF L.monocytogenes PCR Not detected CSF N. meningitidis PCR Not detected CSF Parechovirus (PCR) Not detected CSF S. agalactiae (PCR) Not detected CSF S. pneumoniae (PCR) Not detected CSF VZV (PCR) Not detected Vancomycin Peak Cancelled Vancomycin Trough 06/01/22 06/01/22 06/01/22 14:05 17:45 23:52 WBC RBC Hgb Hct MCV MCH MCHC RDW Plt Count Neut % (Auto) Lymph % (Auto) [place] % (Auto) Eos % (Auto) Baso % (Auto) Neut # (Auto) Lymph # (Auto) [place] # (Auto) Eos # (Auto) Baso # (Auto) Sodium Potassium Chloride Carbon Dioxide BUN Creatinine Estimated GFR BUN/Creatinine Ratio Glucose Hemoglobin A1c Calcium Total Bilirubin AST ALT Alkaline Phosphatase C-Reactive Protein Total Protein Albumin Globulin Albumin/Globulin Ratio CSF Tube Number 2 CSF Volume 0.5 ml CSF Appearance Clear CSF Color Colorless CSF WBC 4 CSF RBC 0 CSF Mononuclear WBCs 0 CSF Polynuclear WBCs 0 CSF Glucose 100 H CSF Total Protein CSF C.neoform/gat PCR CSF CMV DNA (PCR) CSF Enterovirus (PCR) CSF E. coli (PCR) CSF H. influenzae (PCR) CSF HSV I (PCR) CSF HSV II (PCR) CSF HHV 6 (PCR) CSF L.monocytogenes PCR CSF N. meningitidis PCR CSF Parechovirus (PCR) CSF S. agalactiae (PCR) CSF S. pneumoniae (PCR) CSF VZV (PCR) Vancomycin Peak 34.3 Vancomycin Trough 20.1 H 06/02/22 06/02/22 06/02/22 05:43 05:43 05:53 WBC 12.3 H RBC 4.31 L Hgb 13.3 L Hct 38.4 L MCV 89.0 MCH 30.8 MCHC 34.6 RDW 13.3 Plt Count 306 Neut % (Auto) 70.0 Lymph % (Auto) 13.2 L [place] % (Auto) 12.7 Eos % (Auto) 3.9 Baso % (Auto) 0.2 Neut # (Auto) 8600 H Lymph # (Auto) 1600 [place] # (Auto) 1600 H Eos # (Auto) 500 H Baso # (Auto) 0 Sodium 139 Potassium 3.5 Chloride 99 Carbon Dioxide 30 BUN 24 H Creatinine 0.73 Estimated GFR > 60 BUN/Creatinine Ratio 32.9 H Glucose 113 H Hemoglobin A1c 6.2 H Calcium 8.3 L Total Bilirubin 1.0 AST 38 ALT 35 Alkaline Phosphatase 100 C-Reactive Protein 3.7 H Total Protein 6.6 Albumin 3.3 L Globulin 3.3 Albumin/Globulin Ratio 1.0 CSF Tube Number CSF Volume CSF Appearance CSF Color CSF WBC CSF RBC CSF Mononuclear WBCs CSF Polynuclear WBCs CSF Glucose CSF Total Protein CSF C.neoform/gat PCR CSF CMV DNA (PCR) CSF Enterovirus (PCR) CSF E. coli (PCR) CSF H. influenzae (PCR) CSF HSV I (PCR) CSF HSV II (PCR) CSF HHV 6 (PCR) CSF L.monocytogenes PCR CSF N. meningitidis PCR CSF Parechovirus (PCR) CSF S. agalactiae (PCR) CSF S. pneumoniae (PCR) CSF VZV (PCR) Vancomycin Peak Vancomycin Trough PFSH Medical History Atrial fibrillation Gait instability Hyperlipidemia Hypertension Left knee DJD Peripheral neuropathy Surgical History H/O vasectomy Hx of circumcision Hx of shoulder surgery Family History Father Cancer Social History household members: spouse Smoking Status: Former smoker alcohol intake: never Assessment & Plan Assessment & Plan narrative: 1. Acute encephalopathy with acute headache ?suspect possible complex migraine, vs hypertensive encephalopathy, vs? meningitis/encephalitis vs medication (lyrica) ?mild leukocytosis, no fevers, mild neck pain favoring infective process ?continue empirically treat for encephalitis/meningitis with broad spectrum antibiotics with vanco/meropenem, and acyclovir ?continue dexamethasone for possible strep pneumo, bacterial meningitis, though less likely ?hypertension restart metoprolol and losartan, BP on floor improved to 160s from 190s, today elevated to 171/110 will initiate hydralazine. ?continue pain control ?INR elevated, ordered for vitamin K and improved.? Continue to follow. ?ordered LP to check CSF, meningitis panel.? This has been completed and test results consistent with no bacterial or viral meningeal infection. Antibiotics and acyclovir has been discontinued. ?urine drug screen with opiates, which are chronic med for patient 2. Atrial fibrillation with RVR Held xarelto for now, due to LP. Re-initiated. continue metoprolol, rate today 82. 3. Hypertension continue losartan and metoprolol.? Provide hydralazine as needed for systolic 170 or higher or diastolic 110 or higher.? Still not ideally controlled. Furosemide 40 mg p.o. daily as well as potassium supplement. 4. Peripheral neuropathy Lyrica has been held since admission. Can reinitiate. Also patient's regular dose of vitamin B complex daily. 5. Hyperglycemia.? Likely secondary to dexamethasone.? Provide glargine q.h.s. and sliding scale insulin every 6 hours. However with this sensation of dexamethasone the elevated blood sugar levels have been persistent. Hemoglobin A1c taken today the value of 6.2%. indicates that his hemoglobin A1c has always been normal previously. Will initiate metformin a 1000 mg p.o. b.i.d. and continue Lantus 10 units subQ q.h.s. as well as sliding scale insulin with lispro. Consistently higher blood sugars when the patient gets an infection may be part of the cause of the patient's confusion that he presented with. This is a new diagnosis of type 2 diabetes. 6. BNP measured earlier in hospitalization was elevated at 2290. Will initiate furosemide daily along with potassium replacement daily. Hold control component of congestive heart failure as well as hypertension. 7. Depression with normal treatment with duloxetine. This has been re-initiated. 8. Decreased mobility. Hip pain is a barrier for his mobility. X-rays of both hips to assess for underlying degenerative changes. Initiate Tylenol 3 t.i.d. as regular dose to help control pain. Physical therapy to mobilize. Follow labs and clinically. CODE: Full Proxy: Esme Covington, Time Spent With Patient Critical Care time: I spent a total of [] minutes of critical care time on this patient's care today; this time is exclusive of procedural time. Quality VTE Deep Vein Thrombosis/Pulmonary Embolism Present on Admission: No
[2022-06-02] MEDS: CODEINE/ACETAMINOPHEN 30/300 TABLET 1 TAB PO ×2 (11:44→19:54)
[2022-06-02] MEDS: DULOXETINE 20 MG CAPSULE PO (11:44)
[2022-06-02] MEDS: FUROSEMIDE 40 MG TABLET PO (11:44)
[2022-06-02] MEDS: INSULIN LISPRO 100 UNIT/ML 3ML VIAL SUBCUT (17:14)
[2022-06-02] MEDS: METFORMIN HCL 500 MG TABLET 1000 MG PO (18:13)
--- NOTE | 2022-06-02 19:59 | PC.NURSE ---
19:[address] Beach pt heart rate 139 and blood pressure 118/83, pt states, feels fine, just tired. Dr. Beach states, will order Digoxin IV. Notified assistant shift supervisor WU lau.
[2022-06-02] MEDS: CLOTRIMAZOLE/BETAMETHASONE CRM 15 GM 1 APPLIC TOP (20:12)
[2022-06-02] MEDS: PREGABALIN 75 MG CAPSULE 150 MG PO (20:18)
[2022-06-03] VITALS (10 sets, daily range): BP systolic 108–157; BP diastolic 64–102; PULSE 63–135; RESP 18–20; TEMP 36.2–36.8; O2SAT 95–98
[2022-06-03 07:55] LABS: NT-proBNP (BNP-Adult 18+) 3930 pg/mL (<450)
--- NOTE | 2022-06-03 09:23 | P.PN_ITS ---
Subjective Subjective Date Patient Seen: 06/03/22 Time Patient Seen: 15:00 Interval history: Patient denies headache and feels more clear minded today. at bedside and states he is improving and almost back to baseline. Exam Vital Signs (past 8 hours): - 06/03/22 06:00 06/03/22 07:30 Temperature 97.8 F 98.2 F Pulse Rate 63 86 Respiratory Rate 19 18 Blood Pressure 135/93 H 138/64 Pulse Oximetry 95 95 Oxygen Flow Rate 0 0 Oxygen Delivery Method Room Air Oxygen Flow Rate 0 Narrative Exam Narrative: GEN:? In no acute distress.? Not confused. Appears fatigued. Diaphoretic. PULM: clear bilaterally, no wheezes, rhonchi, rales CV: regular rate and rhythm, no murmurs ABD: soft, nontender, nondistended, no organomegaly EXT: warm and well perfused with no edema. Pain with range of motion of both hips left greater than right. SKIN: Rash on lower extremities. Consistent with stasis dermatitis/yeast infection. NEURO:?no focal deficits Objective Labs Result Diagrams: 06/03/22 10:32 06/03/22 10:32 Labs: Laboratory Results - last 24 hr 06/03/22 07:09 NT-Pro-B Natriuret Pep 3930 H PFSH Medical History Atrial fibrillation Gait instability Hyperlipidemia Hypertension Left knee DJD Peripheral neuropathy Surgical History H/O vasectomy Hx of circumcision Hx of shoulder surgery Family History Father Cancer Social History household members: spouse Smoking Status: Former smoker alcohol intake: never Assessment & Plan Assessment & Plan narrative: 1. Acute encephalopathy with acute headache, resolved ?suspect possible complex migraine, vs hypertensive encephalopathy, vs? meningitis/encephalitis vs medication (lyrica) ?mild leukocytosis, no fevers, mild neck pain favoring infective process ?continue empirically treat for encephalitis/meningitis with broad spectrum antibiotics with vanco/meropenem, and acyclovir ?continue dexamethasone for possible strep pneumo, bacterial meningitis, though less likely ?hypertension restart metoprolol and losartan, BP on floor improved to 160s from 190s, today elevated to 171/110 will initiate hydralazine. ?continue pain control ?INR elevated, ordered for vitamin K and improved.? Continue to follow. ?ordered LP to check CSF, meningitis panel.? This has been completed and test results consistent with no bacterial or viral meningeal infection. Antibiotics and acyclovir has been discontinued. ?urine drug screen with opiates, which are chronic med for patient 2. Atrial fibrillation with RVR, active Held xarelto for now, due to LP. Re-initiated. -HR up to 130's with movement -start metoprolol tart 25mg q6h and titrate up to control HR 3. Hypertension continue losartan and metoprolol.? Provide hydralazine as needed for systolic 170 or higher or diastolic 110 or higher.? Still not ideally controlled. Furosemide 40 mg p.o. daily as well as potassium supplement. 4. Peripheral neuropathy Lyrica has been held since admission. Can reinitiate. Also patient's regular dose of vitamin B complex daily. 5. Hyperglycemia.? Likely secondary to dexamethasone.? A1c 6.2 indicating prediabetes. -SSI with lantus 10 units nightly 6. BNP measured earlier in hospitalization was elevated at 2290. Will initiate furosemide daily along with potassium replacement daily. Hold control component of congestive heart failure as well as hypertension. 7. Depression with normal treatment with duloxetine. This has been re- initiated. 8. Decreased mobility. Hip pain is a barrier for his mobility. X-rays of both hips to assess for underlying degenerative changes. Initiate Tylenol 3 t.i.d. as regular dose to help control pain. Physical therapy to mobilize. Follow labs and clinically. CODE: Full Proxy: Esme Covington, Dispo: Likely home on 06/04. Time Spent With Patient Critical Care time: I spent a total of [] minutes of critical care time on this patient's care today; this time is exclusive of procedural time. Quality VTE Deep Vein Thrombosis/Pulmonary Embolism Present on Admission: No
[2022-06-03] MEDS: METOPROLOL ER 50 MG TABLET PO (09:26)
[2022-06-03] MEDS: CODEINE/ACETAMINOPHEN 30/300 TABLET 1 TAB PO ×3 (09:27→21:55)
[2022-06-03] MEDS: LOSARTAN 50 MG TABLET 100 MG PO (09:27)
[2022-06-03] MEDS: FUROSEMIDE 40 MG TABLET PO (09:28)
[2022-06-03] MEDS: RIVAROXABAN 10 MG TABLET 20 MG PO (09:28)
[2022-06-03] MEDS: PREGABALIN 75 MG CAPSULE 150 MG PO ×2 (09:28→21:56)
[2022-06-03] MEDS: POTASSIUM CHLORIDE 20 MEQ TAB 40 MEQ PO (09:28)
[2022-06-03] MEDS: DULOXETINE 20 MG CAPSULE PO (09:28)
[2022-06-03] MEDS: CLOTRIMAZOLE/BETAMETHASONE CRM 15 GM 1 APPLIC TOP ×2 (09:35→21:56)
[2022-06-03 10:44] LABS: Add Manual Diff / Slide Review NO; Basophils Absolute Auto 100 /uL (0-100); Basophils Percent Auto 0.4 % (0-2); Eosinophils Absolute Auto 400 /uL (0-450); Hematocrit 42.9 % (41-53); Hemoglobin 14.9 g/dL (13.5-17.5); Lymphocytes Absolute Auto 1700 /uL (1100-4500); Lymphocytes Percent Auto 11.7 % (25-40); Mean Corpuscular HGB Conc 34.6 % (30-36); Mean Corpuscular Hemoglobin 30.8 PG (26-34); Mean Corpuscular Volume 89.1 fL (80-100); Monocytes Absolute Auto 1300 /uL (0-900); Monocytes Percent Auto 9.4 % (3-14); Neutrophils Absolute Auto 10700 /uL (1500-7000); Neutrophils Percent Auto 75.5 % (50-75); Platelet Count 354 X10^3/uL (150-400); Red Blood Cell Count 4.82 X10^6/uL (4.5-5.9); Red Cell Distribution Width 13.2 % (11.6-14.8); White Blood Cell Count 14.2 X10^3/uL (4.5-11.0)
[2022-06-03 11:01] LABS: BUN Creatinine Ratio 29.9 (6-22); Blood Urea Nitrogen 23 mg/dL (9-20); Calcium 8.8 mg/dL (8.4-10.2); Carbon Dioxide 32 mmol/L (22-32); Chloride 95 mmol/L (98-107); Estimated Glomerular Filt Rate > 60 mL/min (>60); Glucose 178 mg/dL (80-110); HEMOLYSIS < 15 (0-50); Potassium 3.9 mmol/L (3.4-5.1); Sodium 137 mmol/L (137-145)
[2022-06-03] MEDS: METOPROLOL IR 25 MG TABLET PO ×2 (11:05→17:34)
--- NOTE | 2022-06-03 11:15 | PC.NURSE ---
notified provider regarding his last BP and HR 145. placed tele per orders. patient has no IV site, okayed by provider.
[2022-06-03] MEDS: INSULIN LISPRO 100 UNIT/ML 3ML VIAL SUBCUT (12:24)
--- NOTE | 2022-06-03 12:27 | PT-IP ANOTE ---
Per RN, hold PT - pts HR in 150s at rest.
[2022-06-03] MEDS: ACETAMINOPHEN 325 MG TABLET 650 MG PO (12:30)
[2022-06-03] MEDS: METOPROLOL IR 25 MG TABLET 50 MG PO (19:52)
[2022-06-03] MEDS: INSULIN GLARGINE 100 UNIT/ML 3ML PEN 10 UNIT SUBCUT (21:54)
[2022-06-04 00:20] VITALS: BP 141/108; PULSE 69; RESP 16; TEMP 36.4; O2SAT 96
[2022-06-04] MEDS: METOPROLOL IR 25 MG TABLET 50 MG PO ×2 (01:25→06:37)
--- NOTE | 2022-06-04 01:37 | PC.NURSE ---
Addendum entered by Alvin De La Cruz R.N. 06/04/22 01:38: RN had previously helped take care of this pt, and he now looks much better, AOx4. Original Note: Pt has been sleeping most of shift and cooperative w/ care. HR seems to be more controlled w/ 50mg metoprolol Q6H.
[2022-06-04 04:20] VITALS: BP 146/106; PULSE 63; RESP 17; TEMP 35.8; O2SAT 94
[2022-06-04 08:00] VITALS: BP 153/96; PULSE 93; RESP 20; TEMP 36.6; O2SAT 96
[2022-06-04] MEDS: INSULIN LISPRO 100 UNIT/ML 3ML VIAL SUBCUT (08:05)
[2022-06-04 08:07] VITALS: BP 153/96; PULSE 63
[2022-06-04] MEDS: PREGABALIN 75 MG CAPSULE 150 MG PO (08:07)
[2022-06-04] MEDS: POTASSIUM CHLORIDE 20 MEQ TAB 40 MEQ PO (08:07)
[2022-06-04] MEDS: RIVAROXABAN 10 MG TABLET 20 MG PO (08:07)
[2022-06-04] MEDS: FUROSEMIDE 40 MG TABLET PO (08:07)
[2022-06-04] MEDS: LOSARTAN 50 MG TABLET 100 MG PO (08:07)
[2022-06-04] MEDS: DULOXETINE 20 MG CAPSULE PO (08:07)
[2022-06-04] MEDS: CODEINE/ACETAMINOPHEN 30/300 TABLET 1 TAB PO (08:08)
[2022-06-04 08:15] VITALS: O2SAT 97
--- NOTE | 2022-06-04 08:29 | PC.NURSE ---
Pt alert and oriented to self, place and month. he feels tired and weak. eating BF without problems. tele afib rate 90
--- NOTE | 2022-06-04 08:39 | PM.DS.1 ---
History of Present Illness History of Present Illness Date Patient Seen: 06/04/22 Time Patient Seen: 11:00 Chief complaint: Head ache, achey, lethargic, confusion per Narrative: Mr. Covington is a 82M with PMH afib on xarelto, HTN, HL who presents to the hospital with headaches and confusion. He claims to have cluster headaches but per the this is a self diagnosis, and not told to him by a physician. He has not felt way since Sunday, 3 days ago, where he developed generalized bilateral headache. He was having mild neck pain. He became confused at the same time. He is having myalgias. No fevers/chills. No runny nose, tearing eye, or other autonomic symptoms. Headache not lateralized to one side. In the ED workup was done, vitals notable for afebrile, heart rate in 120s, blood pressure elevated in 180s-190s/100s-130s. Labs notable for WBC 11.6, hgb 14.5, plts 251, creatinine 0.83. INR 2.0. Bili 1.8. Trop negative. BNP 2290. Procal 0.11. EtOH negative. Lactate 1.5. Ammonia negative. COVID negative. Urinalysis negative. UDS positive for opiates which he take for osteoarthritis. CT head with no acute process. Chest xray with no acute process.? Discharge Providers Provider Date of admission: 05/29/22 12:19 Discharge Date: 06/04/22 Primary care physician: Fausto Hoskins MD Consults: 06/02/22 08:10 Consult to Physical Therapy Evaluate & Treat Comment: mobilize to baseline Physician Instructions: Evaluate and Treat Discharge provider: Tomas Lopez, Summary Hospital Course Discharge Diagnosis: 1. Acute encephalopathy with acute headache, resolved ?suspect possible complex migraine, vs hypertensive encephalopathy, vs? meningitis/encephalitis vs medication (lyrica), vs delirium vs underlying new dementia process such as lewy body as patient's reporting hallucinations ?mild leukocytosis, no fevers, mild neck pain favoring infective process on admission ?continue empirically treat for encephalitis/meningitis with broad spectrum antibiotics with vanco/meropenem, and acyclovir ?continue dexamethasone for possible strep pneumo, bacterial meningitis, though less likely ?ordered LP to check for meningitis given AMS, but returned with no bacterial or viral meningeal infection.? Antibiotics and acyclovir has been discontinued. ?urine drug screen with opiates, which are chronic med for patient 2. Atrial fibrillation with RVR, active Held xarelto for now, due to LP.? Re-initiated after. -required higher doses of metoprolol for rate control -discharged on increased home dose of metop XL from 100mg daily to BID 3. Hypertension -continue losartan and metoprolol. 4. Peripheral neuropathy Lyrica has been held since admission.? Can reinitiate.? Also patient's regular dose of vitamin B complex daily. 5. Hyperglycemia.? Likely secondary to dexamethasone.? A1c 6.2 indicating prediabetes. -SSI with lantus 10 units nightly 6. BNP measured earlier in hospitalization was elevated at 2290.? Will initiate furosemide daily along with potassium replacement daily.? Hold control component of congestive heart failure as well as hypertension. 7. Depression with normal treatment with duloxetine.? This has been re-initiated. 8. Decreased mobility.? Hip pain is a barrier for his mobility.? X-rays of both hips to assess for underlying degenerative changes.? Initiate Tylenol 3 t.i.d. as regular dose to help control pain.? Physical therapy to mobilize. Hospital Course: Admitted for acute confusion and hallucinations which were thought to be due to meningitis as patient had mild leukocytosis, however LP negative. Received a few days of abx which were stopped. Patient's confusion cleared up some but was not fully back to baseline per . Discussed that patient was likely experiencing delirium due to an acute process that we were not able to identify, vs patient may have signs of new-onset dementia such as Lewy body. Patient returned home with home health on an increased dose of metoprolol succ due to elevated HR at rest into 130's despite his normal home dose of 100mg daily. This was raised to 100mg BID. Time Spent with Patient Time spent: Greater than 30 minutes Exam Vital Signs (past 8 hours): - 06/04/22 04:20 06/04/22 08:00 06/04/22 08:07 Temperature 96.4 F L 97.8 F Pulse Rate 63 93 H 63 Respiratory Rate 17 20 Blood Pressure 146/106 H 153/96 H 153/96 H Pulse Oximetry 94 96 Oxygen Flow Rate 0 0 Oxygen Delivery Method Room Air Oxygen Flow Rate 0 Narrative Exam Narrative: GEN:? In no acute distress.? Not confused. Appears fatigued. Diaphoretic. PULM: clear bilaterally, no wheezes, rhonchi, rales CV: regular rate and rhythm, no murmurs ABD: soft, nontender, nondistended, no organomegaly EXT: warm and well perfused with no edema. Pain with range of motion of both hips left greater than right. SKIN: Rash on lower extremities. Consistent with stasis dermatitis/yeast infection. NEURO:?no focal deficits Objective Labs Result Diagrams: 06/03/22 10:32 06/03/22 10:32 Labs: Laboratory Results - last 24 hr 06/03/22 06/03/22 10:32 10:32 WBC 14.2 H RBC 4.82 Hgb 14.9 Hct 42.9 MCV 89.1 MCH 30.8 MCHC 34.6 RDW 13.2 Plt Count 354 Neut % (Auto) 75.5 H Lymph % (Auto) 11.7 L [place] % (Auto) 9.4 Eos % (Auto) 3.0 Baso % (Auto) 0.4 Neut # (Auto) 34226 H Lymph # (Auto) 1700 [place] # (Auto) 1300 H Eos # (Auto) 400 Baso # (Auto) 100 Sodium 137 Potassium 3.9 Chloride 95 L Carbon Dioxide 32 BUN 23 H Creatinine 0.77 Estimated GFR > 60 BUN/Creatinine Ratio 29.9 H Glucose 178 H Calcium 8.8 PFSH Medical History Atrial fibrillation Gait instability Hyperlipidemia Hypertension Left knee DJD Peripheral neuropathy Surgical History H/O vasectomy Hx of circumcision Hx of shoulder surgery Family History Father Cancer Social History household members: spouse Smoking Status: Former smoker alcohol intake: never Discharge Plan Discharge Plan Patient Disposition: Home Health Service Transfer to: [facility] Provider Discharge Comment: I am sending you home with an increased dose of metoprolol for better heart rate control. Discharge orders & Medications Prescriptions: New metoprolol succinate 100 mg capsule,sprinkle,ER 24hr 100 mg PO BID 30 Days Qty: 60 0RF Continued acetaminophen 500 mg Capsule 1,000 mg PO Q6H PRN (Reason: Pain (Scale Score 4-6)) Label Comments: pt takes am and pm and as needed hydrocodone-acetaminophen 5-325 mg tablet 1 tab PO Q4H PRN (Reason: Pain (Scale Score 4-6)) Label Comments: take 1 tablet 4 to 6 hours if needed duloxetine 20 mg capsule,delayed release(DR/EC) 1 cap PO DAILY vitamin B complex [B Complex-Vitamin B12] Tablet 1 tab PO DAILY Lyrica 150 mg capsule 150 mg PO BID Xarelto 20 mg tablet 20 mg PO DAILY losartan 50 mg tablet 50 mg PO DAILY Discontinued metoprolol succinate 50 mg tablet extended release 24 hr 50 mg PO BID Follow up/Referrals: Fausto Hoskins MD [Primary Care Provider] - Visit Report/Discharge Packet Instructions: Metoprolol Discharge Data Primary Care Provider: Fausto Hoskins Quality VTE Deep Vein Thrombosis/Pulmonary Embolism Present on Admission: No
[2022-06-04 08:40] LABS: Magnesium 2.1 mg/dL (1.6-2.3)
[2022-06-04 11:46] VITALS: BP 145/110; PULSE 72; RESP 18; TEMP 36.7; O2SAT 96
--- NOTE | 2022-06-04 13:13 | CM.DPNOTE ---
DC Note DC home w/spouse today; Dr Lopez completed goals of care conversation today and patient will likely transition to hospice care soon. Meanwhile, discussion had about implementing HH services mera and patient/spouse agreeable CM team placed call to [facility] per family request, referral discussed Will plan to fax completed and signed F2F, HH orders and DC Summary when available Plan: DC home w/spouse and [facility] services via spouse pov JW
== END 2022-06-04 13:17 | disposition home health service (06) | DRG 71 ==
LOC: ED 12:18 → AC 12:20
PROVIDERS: Neuromusculoskeletal Medicine, Sports Medicine; Student in an Organized Health Care Education/Training Program; Admitting Provider Internal Medicine; Emergency Provider Emergency Medicine; Family Provider Family Medicine; PCP Family Medicine; Referring Provider Emergency Medicine; Visit Provider Internal Medicine
DX: G93.40 Encephalopathy, unspecified (principal); I48.20 Chronic atrial fibrillation, unspecified; R51.9 Headache, unspecified; M16.0 Bilateral primary osteoarthritis of hip; I10 Essential (primary) hypertension; F32.A Depression, unspecified; E78.5 Hyperlipidemia, unspecified; G31.83 Neurocognitive disorder with Lewy bodies; F02.80 Dementia in other diseases classified elsewhere, unspecified severity, without behavioral disturbance, psychotic disturbance, mood disturbance, and anxiety; R73.03 Prediabetes; G62.9 Polyneuropathy, unspecified; R73.9 Hyperglycemia, unspecified; Z87.891 Personal history of nicotine dependence; Z20.822 Contact with and (suspected) exposure to COVID-19; Z79.01 Long term (current) use of anticoagulants
CPT/HCPCS: 36415; 62270; 70450; 70551; 71045; 73521; 76000; 80048; 80053; 80076; 80202; 80305; 80320; 81001; 82140; 82550; 82945; 82962; 83036; 83605; 83690; 83735; 83880; 84145; 84157; 84484; 85025; 85610; 85730; 86140; 87040; 87070; 87086; 87205; 87635; 87798; 89051; 93005; 93010; 97162; 99284; 99285; C9803; J0290; J0696; J1100; J1815; J2060; J2185